=== PATIENT | female | born 1975 | race Hispanic/Latino ===

== ENCOUNTER 2017-04-27 12:29 | Emergency (ER) | payer MEDICAID, OTHER ==
[2017-04-27 12:29] VITALS: BMI 29.7
--- NOTE | 2017-04-27 12:35 | ED PDOC ---
Arrival/HPI - General Time Seen by Provider: 04/27/17 12:30 Historian: Patient, EMS - History of Present Illness Narrative History of Present Illness (Text): 04/27/17 12:34 41 y/o female, psychiatric history including drug abuse including heroine/ cocaine, nkda, c/o rt. thigh pain on and off x 4 weeks with no fall or trauma. Pt. stated that she was seen in the [facility] [place] [facility] twice and told her this is sciatica and discharge her home. Pt. stated that she still has pain, able to walk and stand to get to the house and street for the past 4 weeks, no lower back pain, no pain medication taken at home and here today for second opinions, no fever or chills, no rash, no night sweat, no dizziness, no other medical or psychological complaints. Past Medical History - Provider Review Nursing Documentation Reviewed: Yes - Infectious Disease Hx of Infectious Diseases: None - Cardiac Hx Cardiac Disorders: No Hx Hypertension: No - Pulmonary Hx Tuberculosis: No - Neurological HX Cerebrovascular Accident: No Hx Seizures: No - Hematological/Oncological Hx Cancer: No - Musculoskeletal/Rheumatological Hx Falls: No - Genitourinary/Gynecological Hx Sexually Transmitted Diseases: No - Psychiatric Hx Substance Use: Yes - Surgical History Hx Section: Yes - Anesthesia Hx Anesthesia: Yes Hx Anesthesia Reactions: No Hx Malignant Hyperthermia: No Family/Social History - Physician Review Nursing Documentation Reviewed: Yes Family/Social History: Unknown Family HX Smoking Status: Heavy Smoker > 10 Cigarettes Daily Hx Alcohol Use: No Hx Substance Use: Yes Substance used: heroin Allergies/Home Meds Allergies/Adverse Reactions: Allergies No Known Allergies Allergy (Verified 09/27/15 18:06) Review of Systems - Review of Systems Constitutional: absent: Fatigue, Fevers Eyes: absent: Vision Changes ENT: absent: Hearing Changes Respiratory: absent: SOB, Cough Cardiovascular: absent: Chest Pain Gastrointestinal: absent: Abdominal Pain, Nausea, Vomiting Musculoskeletal: Myalgias. absent: Arthralgias, Back Pain Skin: absent: Rash, Pruritis, Skin Lesions Neurological: absent: Headache, Dizziness Hemo/Lymphatic: absent: Adenopathy, Easy Bleeding Psychiatric: absent: Anxiety, Depression, Suicidal Ideation Physical Exam Vital Signs Reviewed: Yes Vital Signs Temp Pulse Resp BP Pulse Ox 04/27/17 16:08 84 18 122/78 98 04/27/17 14:29 89 17 118/81 99 04/27/17 12:46 98.4 F 95 H 17 116/76 100 Temperature: Afebrile Blood Pressure: Normal Pulse: Regular Respiratory Rate: Normal Appearance: Positive for: Well-Appearing, Non-Toxic, Comfortable Pain Distress: Moderate Mental Status: Positive for: Alert and Oriented X 3 - Systems Exam Head: Present: Atraumatic, Normocephalic Pupils: Present: PERRL Extroacular Muscles: Present: EOMI Conjunctiva: Present: Normal Mouth: Present: Moist Mucous Membranes Neck: Present: Normal Range of Motion Respiratory/Chest: Present: Clear to Auscultation, Good Air Exchange. No: Respiratory Distress, Accessory Muscle Use Cardiovascular: Present: Regular Rate and Rhythm, Normal S1, S2. No: Murmurs Abdomen: Present: Normal Bowel Sounds. No: Tenderness, Distention, Peritoneal Signs Back: Present: Normal Inspection. No: CVA Tenderness, Midline Tenderness, Paraspinal Tenderness, Pain with Leg Raise, Decubitus Ulcer Upper Extremity: Present: Normal Inspection. No: Cyanosis, Edema Lower Extremity: Present: Normal Inspection, Other (RLE: no tenderness or swelling, no deformities, FROM without limitation, sensation intact, motor 5/5, +DPPT pulses, nevative martha and otoole signs. ). No: Edema Neurological: Present: GCS=15, CN II-XII Intact, Speech Normal Skin: Present: Warm, Dry, Normal Color. No: Rashes Psychiatric: Present: Alert, Oriented x 3, Normal Insight, Normal Concentration Medical Decision Making ED Course and Treatment: 04/27/17 13:08 -CK level -RLE venuous doppler -Rt. hip xray -IV toradol -Observe and reassess 04/27/17 15:56 -Urine hcg negative -CK within normal limit -CMP show no acute findings -Rt. hip xray: No significant or acute findings to account for/ related to the clinical presentation. -RLE venuous doppler: as per preliminary report, no acute DVT. -UA show +UTI -Pain decreased, feeling better, discharge home with macrobid, meloxicam, flexeril, crutches, follow up with your own pmd and orthopedic within 2 days, return to the ER for any new or worsening signs or symptoms. - Lab Interpretations Lab Results: 04/27/17 13:30 Lab Results 04/27/17 15:20: Urine Color Yellow, Urine Appearance Sl cloudy, Urine pH 7.5, Ur Specific Ayer 1.010, Urine Protein Negative, Urine Glucose (UA) Negative, Urine Ketones Negative, Urine Blood Trace-lysed H, Urine Nitrate Positive H, Urine Bilirubin Negative, Urine Urobilinogen 0.2, Ur Leukocyte Esterase Negative , Urine RBC 0 - 2, Urine WBC 1 - 3, Ur Epithelial Cells 6 - 8, Amorphous Sediment Few, Urine Bacteria Few 04/27/17 13:30: Sodium 135, Potassium 3.6, Chloride 100, Carbon Dioxide 27, Anion Gap 12, BUN 11, Creatinine 0.5 L, Est GFR ( Amer) > 60, Est GFR ( Non-Af Amer) > 60, Random Glucose 88, Calcium 9.0, Total Bilirubin 0.3, AST 26, ALT 33, Alkaline Phosphatase 108, Total Creatine Kinase < 20 L, Total Protein 7.2, Albumin 2.8 L, Globulin 4.3, Albumin/Globulin Ratio 0.6 L I have reviewed the lab results: Yes Interpretation: Abnormal lab values (+UTI) - RAD Interpretation Radiology Orders: 04/27/17 12:54 DUPLEX LOWER EXTRM VEIN RIGHT [US] Stat 04/27/17 13:03 HIP MIN 2V W/ PELVIS RT [RAD] Stat -RLE venuous doppler: as per preliminary report, no acute DVT. -Rt. hip xray: PROCEDURE: Pelvis, right hip HISTORY: c/o rt. upper thigh pain, no trauma COMPARISON: None TECHNIQUE: Standard protocol for this study/examination. FINDINGS: There are no osseous abnormalities to suggest fracture. The pelvic ring is intact. Preserved femoral-acetabular relationship. IMPRESSION: No significant or acute findings to account for/ related to the clinical presentation. 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 No Sleep Is patient sleeping during reassessment? No Presence of Pain Presence of Pain Yes Pain Scale Used Pain Scale Used Numeric Location Left, Right or Bilateral Right Pain Location Body Site Leg Description Description Constant IM Administration Charges Document 04/27/17 13:46 ND (Rec: 04/27/17 13:47 ND [id number]) Charges for Administration # of IM Administrations 1 - PA / PLASTIC OUTFITTER / Resident Statement MD/ has reviewed & agrees with the documentation as recorded. Disposition/Present on Arrival - Present on Arrival Any Indicators Present on Arrival: Yes History of DVT/PE: No History of Uncontrolled Diabetes: No Urinary Catheter: No History of Decub. Ulcer: No History Surgical Site Infection Following: None - Disposition Have Diagnosis and Disposition been Completed?: Yes Diagnosis: Thigh pain, UTI (urinary tract infection) Disposition: HOME/ ROUTINE Disposition Time: 15:27 Patient Plan: Discharge Condition: GOOD Additional Instructions: discharge home with macrobid, meloxicam, flexeril, crutches, follow up with your own pmd and orthopedic within 2 days, return to the ER for any new or worsening signs or symptoms. Prescriptions: Cyclobenzaprine [Cyclobenzaprine HCl] 10 mg PO TID PRN #21 tab PRN Reason: Other Meloxicam 15 mg PO DAILY PRN #14 tablet PRN Reason: Other Nitrofurantoin Macrocrystals [Macrobid] 100 mg PO BID #14 cap [place]: [facility] [place] [facility] [place] - Follow up with primary Alfonso Escobar MD [Staff Provider] - Follow up with primary Forms: WORK NOTE
[2017-04-27 12:47] VITALS: TEMP 98.4
[2017-04-27 13:58] LABS: ALKALINE PHOSPHATASE 108 U/L (38-126); ALT/SGPT 33 U/L (7-56); AST/SGOT 26 U/L (14-36); BILIRUBIN,TOTAL 0.3 mg/dL (0.2-1.3); BLOOD UREA NITROGEN 11 mg/dL (7-21); CARBON DIOXIDE 27 mmol/L (21-33); CHLORIDE 100 mmol/L (98-107); GFR AFRICAN-AMERICAN > 60; GLUCOSE,RANDOM 88 mg/dL (70-110); POTASSIUM 3.6 mmol/L (3.6-5.0); SODIUM 135 mmol/L (132-148); TOTAL PROTEIN 7.2 g/dL (5.8-8.3)
[2017-04-27 14:10] LABS: ALB/GLOB RATIO 0.6 (1.1-1.8)
[2017-04-27 15:41] LABS: PH,URINE 7.5 (4.7-8.0); URINE BILIRUBIN NEGATIVE (NEGATIVE); URINE BLOOD TRACE-LYSED (NEGATIVE); URINE GLUCOSE (UA) NEGATIVE (NEGATIVE); URINE KETONE NEGATIVE (NEGATIVE); URINE LEUKOCYTE ESTERASE NEGATIVE Leu/uL (NEGATIVE); URINE PROTEIN NEGATIVE mg/dL (<30 mg/dL); URINE UROBILINOGEN 0.2 E.U./dL (<1 E.U./dL)
[2017-04-27 15:45] LABS: URINE APPEARANCE SL CLOUDY (CLEAR); URINE COLOR YELLOW (YELLOW)
--- NOTE | 2017-04-27 15:46 | RAD ---
PROCEDURE: Pelvis, right hip HISTORY: c/o rt. upper thigh pain, no trauma COMPARISON: None TECHNIQUE: Standard protocol for this study/examination. FINDINGS: There are no osseous abnormalities to suggest fracture. The pelvic ring is intact. Preserved femoral-acetabular relationship. IMPRESSION: No significant or acute findings to account for/ related to the clinical presentation.
[2017-04-27 15:59] LABS: URINE AMORPHOUS SEDIMENT FEW; URINE BACTERIA FEW (NEG); URINE RBC 0 - 2 /hpf (0-2)
[2017-04-27 16:09] VITALS: BP 122/78; PULSE 84; RESP 18; O2SAT 98
--- NOTE | 2017-04-27 21:20 | US ---
PROCEDURE: Right lower extremity venous US HISTORY: Leg pain and swelling. Evaluate for DVT. PHYSICIAN(S): Toro Alvarez M.D. TECHNIQUE: Duplex sonography and color-flow Doppler with graded compression were used to evaluate the deep venous system of the right lower extremity. FINDINGS: The visualized deep venous system of the right lower extremity is sonographically normal and compressible. Normal waveforms and augmentation are seen. There is no sonographic evidence for deep venous thrombosis in the visualized segments of the right lower extremity. IMPRESSION: 1. No sonographic evidence for deep venous thrombosis in the visualized segments of the right lower extremity.
== END 2017-04-27 16:24 | disposition home or self-care (01) ==
LOC: ED 12:29
DX: N39.0 Urinary tract infection, site not specified (principal); M79.651 Pain in right thigh
CPT/HCPCS: 73502; 80053; 81001; 82550; 87086; 93971; 96372; 99285; J1885

== ENCOUNTER 2017-05-07 23:09 | Emergency (ER) | payer SELFPAY ==
[2017-05-07 23:17] VITALS: BMI 20.8
[2017-05-07 23:22] VITALS: TEMP 98.8
--- NOTE | 2017-05-07 23:55 | ED PDOC ---
Arrival/HPI - General Chief Complaint: Lower Extremity Problem/Injury Time Seen by Provider: 05/07/17 23:49 Historian: Patient - History of Present Illness Narrative History of Present Illness (Text): 05/07/17 23:51 A 41 year old female, whose past medical history includes a psychiatric history including drug abuse including heroine/cocaine, presents to the emergency department complaining of 6 week duration right leg pain. The patient states that she was seen in the emergency department last week where she was diagnosed with sciatica. The patient states that the muscle relaxers she was prescribed have not relieved her symptoms. The patient also notes that she has been experiencing left shoulder pain. She denies fevers, chills, headache, dizziness , chest pain, shortness of breath, dyspnea on exertion, cough, abdominal pain, nausea, vomiting, diarrhea, neck pain, urinary/bowel changes, or any other complaint. Time/Duration: Other (6 weeks) Symptom Onset: Sudden Symptom Course: Unchanged Activities at Onset: Rest, Light Context: Home Past Medical History - Provider Review Nursing Documentation Reviewed: Yes - Infectious Disease Hx of Infectious Diseases: None - Cardiac Hx Cardiac Disorders: No Hx Hypertension: No - Pulmonary Hx Tuberculosis: No - Neurological HX Cerebrovascular Accident: No Hx Seizures: No - Hematological/Oncological Hx Cancer: No - Musculoskeletal/Rheumatological Hx Back Pain: Yes Hx Falls: No Other/Comment: Sciatica - Genitourinary/Gynecological Hx Sexually Transmitted Diseases: No - Psychiatric Hx Substance Use: Yes - Surgical History Hx Section: Yes (x2) - Anesthesia Hx Anesthesia: Yes Hx Anesthesia Reactions: No Hx Malignant Hyperthermia: No Family/Social History - Physician Review Nursing Documentation Reviewed: Yes Family/Social History: No Known Family HX Smoking Status: Heavy Smoker > 10 Cigarettes Daily Hx Alcohol Use: Yes Frequency of alcohol use: Socially Hx Substance Use: Yes Substance used: heroin; percocet Allergies/Home Meds Allergies/Adverse Reactions: Allergies No Known Allergies Allergy (Verified 09/27/15 18:06) Review of Systems - Physician Review All systems were reviewed & negative as marked: Yes - Review of Systems Constitutional: absent: Fevers Respiratory: absent: SOB, Cough Cardiovascular: absent: Chest Pain, ODONNELL Gastrointestinal: absent: Abdominal Pain, Stool Changes, Diarrhea, Nausea, Vomiting Genitourinary Female: absent: Urine Output Changes Musculoskeletal: Other (Right leg pain and left shoulder pain.). absent: Neck Pain Neurological: absent: Headache, Dizziness Physical Exam Vital Signs Reviewed: Yes Vital Signs Temp Pulse Resp BP Pulse Ox 05/07/17 23:21 98.8 F 119 H 18 98/60 L 95 Temperature: Afebrile Blood Pressure: Hypotensive Pulse: Tachycardic Respiratory Rate: Normal Appearance: Positive for: Well-Appearing, Non-Toxic, Comfortable, Other ( Patient older than stated age.) Pain Distress: None Mental Status: Positive for: Alert and Oriented X 3 - Systems Exam Head: Present: Atraumatic, Normocephalic Pupils: Present: PERRL Extroacular Muscles: Present: EOMI Conjunctiva: Present: Normal Mouth: Present: Moist Mucous Membranes Neck: Present: Normal Range of Motion Respiratory/Chest: Present: Wheezes (Bilateral inspiratory and expiratory wheezes.) Cardiovascular: Present: Regular Rate and Rhythm, Normal S1, S2. No: Murmurs Abdomen: Present: Normal Bowel Sounds. No: Tenderness, Distention, Peritoneal Signs Back: Present: Normal Inspection Upper Extremity: Present: Swelling (Soft tissue swelling to the head of the humerous. ) Lower Extremity: Present: NORMAL PULSES (distal pulses 2+), Tenderness (right parasacral pain on palpation radiating to the thigh anteriorly and posteriorly.) Neurological: Present: GCS=15, CN II-XII Intact, Speech Normal Skin: Present: Warm, Dry, Normal Color. No: Rashes Psychiatric: Present: Alert, Oriented x 3, Normal Insight, Normal Concentration Medical Decision Making ED Course and Treatment: 05/08/17 00:01 Impression: A 41 year old female presents to the emergency department complaining of 6 week duration right leg pain. Differential Diagnosis included but are not limited to: Plan: -- Valium and Toradol -- Reassess and disposition Prior Visits: Notes and results from previous visits were reviewed. Patient was last seen in the emergency department on 04/27/2017. The patient was seen in the emergency department complaining of right thigh pain. The patient was discharged home. Progress Notes: - Medication Orders Current Medication Orders: Discontinued Medications Diazepam (Valium) 5 mg PO ONCE ONE PRN Reason: Protocol Stop: 05/07/17 23:53 Last Admin: 05/08/17 00:12 Dose: 5 mg Ketorolac Tromethamine (Toradol) 60 mg IM STAT STA Stop: 05/07/17 23:51 Last Admin: 05/08/17 00:12 Dose: 60 mg MAR Pain Assessment Document 05/08/17 00:12 HI (Rec[facility] 05/08/17 00:12 [id number] Pain Reassessment Is this a pain reassessment? No Sleep Is patient sleeping during reassessment? No Presence of Pain Presence of Pain Yes Pain Scale Used Pain Scale Used Numeric Location Left, Right or Bilateral Right Pain Location Body Site Hip IM Administration Charges Document 05/08/17 00:12 HI (Rec: 05/08/17 00:12 [place] [id number]) Injection Site MAR Injection Site Left Gluteus Juan Alberto Charges for Administration # of IM Administrations 1 - Scribe Statement The provider has reviewed the documentation as recorded by the Scribe Cynthia Dean Provider Scribe Attestation: All medical record entries made by the Scribe were at my direction and personally dictated by me. I have reviewed the chart and agree that the record accurately reflects my personal performance of the history, physical exam, medical decision making, and the department course for this patient. I have also personally directed, reviewed, and agree with the discharge instructions and disposition. Disposition/Present on Arrival - Present on Arrival Any Indicators Present on Arrival: No History of DVT/PE: No History of Uncontrolled Diabetes: No Urinary Catheter: No History of Decub. Ulcer: No History Surgical Site Infection Following: None - Disposition Have Diagnosis and Disposition been Completed?: Yes Diagnosis: Sciatica Disposition: HOME/ ROUTINE Disposition Time: 00:38 Patient Plan: Discharge Condition: FAIR Discharge Instructions (ExitCare): Sciatica (ED) Print Language: ROMANIAN Prescriptions: Cyclobenzaprine [Cyclobenzaprine HCl] 10 mg PO TID #15 tab Naproxen [Naprosyn] 500 mg PO BID #20 tablet Referrals: [facility] [place] [Outside] - Follow up with primary [facility] [Outside] - Follow up with primary Forms: [facility]ing (Mohawk)
[2017-05-08 01:04] VITALS: BP 112/79; PULSE 90; RESP 16; O2SAT 100
== END 2017-05-08 01:02 | disposition home or self-care (01) ==
LOC: ED 23:09
DX: M54.30 Sciatica, unspecified side (principal)
CPT/HCPCS: 96372; 99284; J1885

== ENCOUNTER 2017-05-29 12:49 | Inpatient (IN) | payer MEDICAID ==
[2017-05-29 12:49] VITALS: BMI 20.8
--- NOTE | 2017-05-29 13:34 | ED PDOC ---
Arrival/HPI - General Chief Complaint: Lower Extremity Problem/Injury Time Seen by Provider: 05/29/17 13:24 Historian: Patient - History of Present Illness Narrative History of Present Illness (Text): 05/29/17 13:34 A 41 year old female presents to the emergency department complaining of pain to right buttock radiating down right leg for 8 weeks. Patient notes lump to right inner thigh, which has increased in size but denies pain. Patient denies any trauma, fever, chills, nausea, vomiting, abdominal pain, chest pain, shortness of breath or any other complaints. Time/Duration: Other (8 weeks) Symptom Course: Unchanged Context: Home Past Medical History - Provider Review Nursing Documentation Reviewed: Yes - Infectious Disease Hx of Infectious Diseases: None - Cardiac Hx Cardiac Disorders: No Hx Hypertension: No - Pulmonary Hx Respiratory Disorders: No - Neurological Hx Neurological Disorder: No - HEENT Hx HEENT Disorder: No - Renal Hx Renal Disorder: No - Endocrine/Metabolic Hx Endocrine Disorders: No - Hematological/Oncological Hx Blood Disorders: No - Integumentary Hx Dermatological Disorder: No - Musculoskeletal/Rheumatological Hx Musculoskeletal Disorders: Yes Hx Back Pain: Yes Other/Comment: Sciatica - Gastrointestinal Hx Gastrointestinal Disorders: No - Genitourinary/Gynecological Hx Genitourinary Disorders: No Hx Sexually Transmitted Diseases: No - Psychiatric Hx Substance Use: Yes - Surgical History Hx Section: Yes (x2) Other/Comment: BREAST AUGMENTATION, NASAL R/T DEVIATED SEPTUM - Anesthesia Hx Anesthesia: Yes Hx Anesthesia Reactions: No Hx Malignant Hyperthermia: No Family/Social History - Physician Review Nursing Documentation Reviewed: Yes Family/Social History: No Known Family HX Smoking Status: Heavy Smoker > 10 Cigarettes Daily Hx Alcohol Use: Yes Hx Substance Use: Yes Substance used: heroin; percocet Allergies/Home Meds Allergies/Adverse Reactions: Allergies No Known Allergies Allergy (Verified 05/29/17 13:13) Home Medications: Home Meds Medication Instructions Recorded Confirmed No Known Home Med 05/29/17 05/29/17 Review of Systems - Physician Review All systems were reviewed & negative as marked: Yes - Review of Systems Constitutional: absent: Fevers, Night Sweats Respiratory: absent: SOB Cardiovascular: absent: Chest Pain Gastrointestinal: absent: Abdominal Pain, Nausea, Vomiting Musculoskeletal: Other (right buttock pain radiating down leg) Skin: Other (lump to right inner thigh) Physical Exam Vital Signs Reviewed: Yes Vital Signs Temp Pulse Resp BP Pulse Ox 05/29/17 18:25 19 99 05/29/17 18:24 98.0 F 90 18 102/69 98 05/29/17 17:48 98.0 F 93 H 18 105/60 100 05/29/17 15:01 94 H 18 106/55 L 98 05/29/17 13:14 98.4 F 114 H 16 98 Temperature: Afebrile Pulse: Tachycardic Respiratory Rate: Normal Appearance: Positive for: Well-Appearing, Non-Toxic, Comfortable Pain Distress: None Mental Status: Positive for: Alert and Oriented X 3 - Systems Exam Head: Present: Atraumatic, Normocephalic Pupils: Present: PERRL Extroacular Muscles: Present: EOMI Conjunctiva: Present: Normal Mouth: Present: Moist Mucous Membranes Neck: Present: Normal Range of Motion Respiratory/Chest: Present: Clear to Auscultation, Good Air Exchange. No: Respiratory Distress, Accessory Muscle Use Cardiovascular: Present: Regular Rate and Rhythm, Normal S1, S2. No: Murmurs Abdomen: Present: Normal Bowel Sounds. No: Tenderness, Distention, Peritoneal Signs, Rebound, Guarding Back: Present: Normal Inspection. No: CVA Tenderness, Midline Tenderness, Paraspinal Tenderness Upper Extremity: Present: Normal Inspection. No: Cyanosis, Edema Lower Extremity: Present: Normal Inspection, NORMAL PULSES, Normal ROM, Tenderness (Right buttock and thigh tenderness), Neurovascularly Intact, Other ( 4x4 inch circular soft mass to right inner thigh). No: Edema, CALF TENDERNESS, Erythema, Temperature Abnormalties Neurological: Present: GCS=15, CN II-XII Intact, Speech Normal Skin: Present: Warm, Dry, Normal Color, Other. No: Rashes Psychiatric: Present: Alert, Oriented x 3, Normal Insight, Normal Concentration Medical Decision Making ED Course and Treatment: 05/29/17 13:34 Impression: A 41 year old female with right buttock pain radiating down leg. Patient notes lump to right inner thigh. Differential Diagnosis included but are not limited to: Mass rule out Abscess vs. Lymph node, Sepsis source mass vs. UTI Plan: -- Chest, abdomen and pelvis CT -- EKG -- Labs -- Blood and urine culture -- Urinalysis -- Morphine, K-dur, IV fluids and Zozyn -- Reassess and disposition Progress Notes: EKG shows NSR at 95 BPM. Interpreted by me. Patient reports history of frequent UTI's. Labs reviewed, elevated white count and platelets. Patient meets 2 SIRS criteria. Pending lactic acid. Will order antibiotics and IV fluids. 05/29/17 15:[address] Hilton, who accepts admission to [facility]. Case was discussed with Dr. Calvillo Surgery who came to evaluate patient. He agreed with plan for CT. 05/29/17 16:36 Code sepsis activated at this time. Report Date : 05/29/2017 18:14:20 PROCEDURE: CT Chest, Abdomen and Pelvis without intravenous contrast Dictator : Jalen Barron MD IMPRESSION: Multiple necrotic masses/ abscess ease identified in the right thigh which is edematous. The is a been described in greater detail above. Multiple pelvic and retroperitoneal masses several of which are necrotic all of which suggests an infectious/ inflammatory etiology. Subhepatic mass with air- fluid levels of multiple ocular also the air likely abscess formation. Communication of results: I discussed the findings directly with the attending physician in the emergency department Dr. Castro at 18:09. CT results were concerning for necrotic masses/abscess. Patient was started on broad spectrum antibiotics. Dr. Hilton and Dr. Calvillo aware of CT results. - Critical Care Critical Care Minutes: 30 minutes - Lab Interpretations Microbiology Results: Microbiology Results 05/29/17 15:30 Blood Blood Culture - Preliminary NO GROWTH AFTER 3 DAYS 05/29/17 15:30 Blood Blood Culture - Preliminary NO GROWTH AFTER 3 DAYS Lab Results: 05/29/17 13:53 05/29/17 13:53 Lab Results 05/29/17 15:30: pO2 57 H, VBG pH 7.41, VBG pCO2 54.0, VBG HCO3 34.2 H, VBG Total CO2 35.9 H, VBG O2 Sat (Calc) 92.4 H, VBG Base Excess 7.8 H, VBG Potassium 2.9 L, Glucose 122 H, Lactate 2.0, FiO2 21.0, Sodium 136.0, Chloride 103.0, Venous Blood Potassium 2.9 L 05/29/17 14:30: Procalcitonin 0.22 05/29/17 14:30: HIV 1&2 Ag/Ab, 4th Gen Nonreactive 05/29/17 13:53: Sodium 137, Potassium 2.8 L* D, Chloride 96 L, Carbon Dioxide 30 , Anion Gap 15, BUN 10, Creatinine 0.7, Est GFR ( Amer) > 60, Est GFR ( Non-Af Amer) > 60, Random Glucose 111 H, Calcium 10.4, Total Bilirubin 0.4, AST 42 H D, ALT 23, Alkaline Phosphatase 143 H D, Total Protein 8.8 H, Albumin 3.3, Globulin 5.5, Albumin/Globulin Ratio 0.6 L 05/29/17 13:53: WBC 20.9 H, RBC 3.87, Hgb 10.4 L, Hct 33.3 L, MCV 86.0, MCH 26.9 , MCHC 31.2, RDW 15.5 H, Plt Count 773 H*, MPV 9.2, Gran % 84.3 H, Lymph % (Auto ) 11.0 L, Desha % (Auto) 4.5, Eos % (Auto) 0.1 L, Baso % (Auto) 0.1, Gran # 17.59 H, Lymph # 2.3, Desha # 1.0 H, Eos # 0.0, Baso # 0.02, Neutrophils % ( Manual) 69, Band Neutrophils % 13 H*, Lymphocytes % (Manual) 12 L, Monocytes % ( Manual) 5, Myelocytes % 1, Platelet Evaluation High 05/29/17 13:30: Phosphorus 4.9 H, Magnesium 1.8 I have reviewed the lab results: Yes - Medication Orders Current Medication Orders: Acetaminophen (Tylenol 325mg Tab) 650 mg PO Q4H PRN PRN Reason: Fever >100.5 F Last Admin: 05/29/17 23:25 Dose: 650 mg [facility] Pain/Vitals Document 05/29/17 23:25 [facility] (Rec: 05/29/17 23:25 [facility] [id number]) Presence of Pain Presence of Pain Yes Pain Scale Used Pain Scale Used Numeric Location Pain 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 Yes Acetaminophen (Tylenol 325mg Tab) 975 mg PO Q8H NORY Last Admin: 06/02/17 13:11 Dose: MAR Pain/Vitals Document 06/02/17 13:11 CV (Rec: 06/02/17 13:11 CV [place] [id number]) Presence of Pain Presence of Pain Yes Heparin Sodium (Porcine) (Heparin) 5,000 units SC Q12 NORY PRN Reason: Protocol Last Admin: 06/02/17 10:25 Dose: Not Given Non-Admin Reason: Patient Refused Hydromorphone HCl (Dilaudid) 0.5 mg IVP Q4H PRN PRN Reason: Pain, severe (8-10) Last Admin: 06/02/17 14:07 Dose: 0.5 mg MAR Pain Assessment Document 06/02/17 14:07 CV (Rec: 06/02/17 14:07 CV [place] [id number]) Pain Reassessment Is this a pain reassessment? No Presence of Pain Presence of Pain Yes IVP Administration Document 06/02/17 14:07 CV (Rec: 06/02/17 14:07 CV [place] [id number]) Charges for Administration # of IVP Administrations 1 Vancomycin HCl (Vancomycin 1gm) 1 gm in 250 mls @ 167 mls/hr IVPB Q12H NORY PRN Reason: Protocol Stop: 06/07/17 22:01 Last Admin: 06/02/17 10:14 Dose: 167 mls/hr eMAR Start Stop Document 06/02/17 10:14 CV (Rec: 06/02/17 10:14 CV [place] [id number]) Intravenous Solution Start Date 06/02/17 Start Time 10:14 Piperacillin Sod/Tazobactam Sod (Zosyn 3.375 In Ns 100ml) 100 mls @ 200 mls/hr IVPB Q6 NORY PRN Reason: Protocol Stop: 06/08/17 00:01 Last Admin: 06/02/17 13:11 Dose: 200 mls/hr eMAR Start Stop Document 06/02/17 13:11 CV (Rec: 06/02/17 13:11 CV [place] [id number]) Intravenous Solution Start Date 06/02/17 Start Time 13:11 Lactated Ringer's (Lactated Ringer's) 1,000 mls @ 100 mls/hr IV .Q10H NORY Last Admin: 06/02/17 06:53 Dose: Mupirocin (Bactroban Ointment) 1 gm NS BID [facility] Stop: 06/06/17 10:01 Last Admin: 06/01/17 23:47 Dose: 1 applic Ondansetron HCl (Zofran Inj) 4 mg IVP Q4H PRN PRN Reason: Nausea/Vomiting Oxycodone/Acetaminophen (Percocet 5/325 Mg Tab) 1 tab PO Q6H PRN PRN Reason: Pain, moderate (4-7) Stop: 06/03/17 12:01 Last Admin: 06/02/17 13:10 Dose: 1 tab [facility] Pain Assessment Document 06/02/17 13:10 CV (Rec: 06/02/17 13:10 CV [place] [id number]) Pain Reassessment Is this a pain reassessment? No Sleep Is patient sleeping during reassessment? No Presence of Pain Presence of Pain Yes Pain Scale Used Pain Scale Used Numeric Pantoprazole Sodium (Protonix Inj) 40 mg IVP DAILY [facility] Last Admin: 06/02/17 10:13 Dose: 40 mg IVP Administration Document 06/02/17 10:13 CV (Rec: 06/02/17 10:14 CV [place] [id number]) Charges for Administration # of IVP Administrations 1 Polyethylene Glycol (Miralax) 17 gm PO BID [facility] Last Admin: 06/02/17 10:16 Dose: 17 gm Discontinued Medications Hydromorphone HCl (Dilaudid) 0.5 mg IVP STAT [facility] Stop: 05/30/17 10:13 Last Admin: 05/30/17 10:36 Dose: 0.5 mg [facility] Pain Assessment Document 05/30/17 10:36 LMN (Rec: 05/30/17 10:38 LMN [id number][place] Pain Reassessment Is this a pain reassessment? No Presence of Pain Presence of Pain Yes Pain Scale Used Pain Scale Used Numeric Location Left, Right or Bilateral Right Upper or Lower Lower Pain Location Body Site Lumbar Description Description Constant Pain Behavior Moaning Crying Irritability Restlessness IVP Administration Document 05/30/17 10:36 LMN (Rec: 05/30/17 10:38 LMN [id number][place] Charges for Administration # of IVP Administrations 1 Re-Assess: MAR Pain Assessment Document 05/30/17 11:36 LMN (Rec: 05/30/17 14:27 LMN [id number][place] Pain Reassessment Is this a pain reassessment? Yes Sleep Is patient sleeping during reassessment? No Presence of Pain Presence of Pain Yes Pain Scale Used Pain Scale Used Numeric Description Pain not relieved and LIP/MD was Yes notified Hydromorphone HCl (Dilaudid) 0.5 mg IVP Q6H PRN PRN Reason: Pain, severe (8-10) Last Admin: 05/31/17 08:52 Dose: 0.5 mg [facility] Pain Assessment Document 05/31/17 08:52 [employer] (Rec: 05/31/17 08:53 RERECORDING MIXER [id number]) Pain Reassessment Is this a pain reassessment? Yes Sleep Is patient sleeping during reassessment? No Presence of Pain Presence of Pain Yes Pain Scale Used Pain Scale Used Numeric Location Pain Location Body Site Sacrum Description Description Constant IVP Administration Document 05/31/17 08:52 [employer] (Rec: 05/31/17 08:53 RERECORDING MIXER [id number]) Charges for Administration # of IVP Administrations 1 Re-Assess: [facility] Pain Assessment Document 05/31/17 09:52 [employer] (Rec: 05/31/17 10:11 RERECORDING MIXER [id number]) Pain Reassessment Is this a pain reassessment? Yes Sleep Is patient sleeping during reassessment? No Presence of Pain Presence of Pain Yes Hydromorphone HCl (Dilaudid) 0.5 mg IVP Q15M PRN PRN Reason: Pain, severe (8-10) Stop: 05/31/17 23:59 Sodium Chloride (Sodium Chloride 0.9%) 1,000 mls @ 100 mls/hr IV .Q10H NORY Last Admin: 05/29/17 15:44 Dose: 100 mls/hr eMAR Start Stop Document 05/29/17 15:44 [email or web address] (Rec: 05/29/17 15:44 [email or web address] [facility] [id number]) Intravenous Solution Start Date 05/29/17 Start Time 15:44 End Date 05/29/17 Piperacillin Sod/Tazobactam Sod (Zosyn 4.5 Gm In Ns 100ml) 4.5 gm in 100 mls @ 200 mls/hr IVPB STAT STA PRN Reason: Protocol Stop: 05/29/17 15:39 Last Admin: 05/29/17 15:43 Dose: 200 mls/hr eMAR Start Stop Document 05/29/17 15:43 [email or web address] (Rec: 05/29/17 15:44 [email or web address] [facility] [id number]) Intravenous Solution Start Date 05/29/17 Start Time 15:44 End Date 05/29/17 Sodium Chloride (Sodium Chloride 0.9%) 1,000 mls @ 999 mls/hr IV .Q1H1M STA Stop: 05/29/17 16:13 Last Admin: 05/29/17 15:44 Dose: 999 mls/hr eMAR Start Stop Document 05/29/17 15:44 [email or web address] (Rec: 05/29/17 15:44 [email or web address] [facility] [id number]) Intravenous Solution Start Date 05/29/17 Start Time 15:44 End Date 05/29/17 Sodium Chloride (Sodium Chloride 0.9%) 1,000 mls @ 100 mls/hr IV .Q10H NORY Potassium Chloride 40 meq/ (Sodium Chloride) 1,020 mls @ 100 mls/hr IV .[id number] NORY Last Admin: 05/30/17 08:56 Dose: 100 mls/hr eMAR Start Stop Document 05/30/17 08:56 LMN (Rec: 05/30/17 08:56 LMN [id number]) Intravenous Solution Start Date 05/30/17 Start Time 08:56 Vancomycin HCl (Vancomycin 1gm) 1 gm in 250 mls @ 167 mls/hr IVPB STAT STA PRN Reason: Protocol Stop: 05/29/17 19:42 Last Admin: 05/29/17 19:58 Dose: 167 mls/hr eMAR Start Stop Document 05/29/17 19:58 JA (Rec: 05/29/17 19:58 JA [id number]) Intravenous Solution Start Date 05/29/17 Start Time 19:58 Sodium Chloride (Sodium Chloride 0.9%) 1,000 mls @ 175 mls/hr IV .Q5H43M NORY Last Admin: 05/30/17 15:50 Dose: 175 mls/hr eMAR Start Stop Document 05/30/17 15:50 LMN (Rec: 05/30/17 15:50 LMN [id number]) Intravenous Solution Start Date 05/30/17 Start Time 15:50 Iron Sucrose 200 mg/ Sodium (Chloride) 110 mls @ 110 mls/hr IVPB ONCE NORY Stop: 06/03/17 09:31 Last Admin: 06/01/17 09:10 Dose: 110 mls/hr eMAR Start Stop Document 06/01/17 09:10 KAILYN (Rec: 06/01/17 09:11 KAILYN [id number]) Intravenous Solution Start Date 06/01/17 Start Time 09:10 End Date 06/01/17 End time 10:10 Total Infusion Time 60 Lactated Ringer's (Lactated Ringer's) 1,000 mls @ 75 mls/hr IV .[id number] NORY Stop: 05/31/17 19:01 Lactated Ringer's (Lactated Ringer's) 500 mls @ 999 mls/hr IV .Q31M NORY Stop: 06/01/17 12:15 Last Admin: 06/01/17 12:18 Dose: 999 mls/hr eMAR Start Stop Document 06/01/17 12:18 KAILYN (Rec: 06/01/17 12:18 KAILYN [id number]) Intravenous Solution Start Date 06/01/17 Start Time 12:18 End Date 06/01/17 End time 12:48 Total Infusion Time 30 Ketorolac Tromethamine (Toradol) 30 mg IVP STAT STA Stop: 05/30/17 03:24 Last Admin: 05/30/17 03:36 Dose: 30 mg MAR Pain Assessment Document 05/30/17 03:36 [facility] (Rec: 05/30/17 03:37 [facility]17) Pain Reassessment Is this a pain reassessment? No Presence of Pain Presence of Pain Yes Location Left, Right or Bilateral Right Pain Location Body Site Leg Description Description Intermittent Intensity of Pain at present 10 Pain Behavior Moaning Crying Guarding Irritability Restlessness Screaming Aggravating Factors ADL's Alleviating Factors/Management Medication Techniques Alleviating Factors Medication IVP Administration Document 05/30/17 03:36 [facility] (Rec: 05/30/17 03:37 [place] [id number]) Charges for Administration # of IVP Administrations 1 Ketorolac Tromethamine (Toradol) 30 mg IVP STAT STA Stop: 05/30/17 22:10 Last Admin: 05/30/17 22:30 Dose: 30 mg MAR Pain Assessment Document 05/30/17 22:30 KT (Rec: 05/30/17 22:30 KT [place] [id number]) Pain Reassessment Is this a pain reassessment? No Presence of Pain Presence of Pain Yes Pain Scale Used Pain Scale Used Numeric Location Left, Right or Bilateral Bilateral Upper or Lower Lower Pain Location Body Site Back IVP Administration Document 05/30/17 22:30 KT (Rec: 05/30/17 22:30 KT [place] [id number]) Charges for Administration # of IVP Administrations 1 Ketorolac Tromethamine (Toradol) 30 mg IVP Q8H NORY Stop: 06/02/17 04:31 Last Admin: 06/01/17 03:34 Dose: 30 mg MAR Pain Assessment Document 06/01/17 03:34 KP (Rec: 06/01/17 03:34 [id number] Pain Reassessment Is this a pain reassessment? No Sleep Is patient sleeping during reassessment? No Presence of Pain Presence of Pain Yes Location Pain Location Body Site Generalized Description Description Intermittent Pain Behavior Moaning IVP Administration Document 06/01/17 03:34 KP (Rec: 06/01/17 03:34 [facility]-[id number]) Charges for Administration # of IVP Administrations 1 Re-Assess: MAR Pain Assessment Document 06/01/17 04:34 KP (Rec: 06/01/17 05:08 [facility]-[id number]) Pain Reassessment Is this a pain reassessment? Yes Sleep Is patient sleeping during reassessment? No Presence of Pain Presence of Pain No Morphine Sulfate (Morphine) 4 mg IVP STAT STA Stop: 05/29/17 13:45 Last Admin: 05/29/17 14:08 Dose: 4 mg IVP Administration Document 05/29/17 14:08 [email or web address] (Rec: 05/29/17 14:09 [email or web address] [id number]) Charges for Administration # of IVP Administrations 1 Morphine Sulfate (Morphine) 2 mg IVP Q4H PRN PRN Reason: Pain, severe (8-10) Last Admin: 05/29/17 19:12 Dose: 2 mg MAR Pain Assessment Document 05/29/17 19:12 JA (Rec: 05/29/17 19:12 RASHID [id number]) Pain Reassessment Is this a pain reassessment? No Presence of Pain Presence of Pain Yes Pain Scale Used Pain Scale Used Numeric Location Pain Location Body Site Generalized Description Description Constant Intensity of Pain at present 9 Acceptable Level of Pain 0-2 IVP Administration Document 05/29/17 19:12 RASHID (Rec: 05/29/17 19:12 RASHID [id number]) Charges for Administration # of IVP Administrations 1 Morphine Sulfate (Morphine) 4 mg IVP Q6H PRN PRN Reason: Pain, severe (8-10) Last Admin: 05/29/17 20:53 Dose: 4 mg Morphine Sulfate (Morphine) 2 mg IVP Q6H PRN PRN Reason: Pain, severe (8-10) Morphine Sulfate (Morphine) 2 mg IV Q6H PRN PRN Reason: Pain, severe (8-10) Last Admin: 05/30/17 08:56 Dose: 2 mg eMAR Start Stop Document 05/30/17 08:56 LMN (Rec: 05/30/17 08:56 LMN [id number]) Intravenous Solution Start Date 05/30/17 Start Time 08:56 Ondansetron HCl (Zofran Inj) 4 mg IVP ONCE PRN PRN Reason: Nausea/Vomiting Potassium Chloride (K-Dur 20 Meq Er Tab) 40 meq PO STAT STA Stop: 05/29/17 15:10 Last Admin: 05/29/17 15:44 Dose: 40 meq Potassium Chloride (K-Dur 20 Meq Er Tab) 40 meq PO ONCE ONE Stop: 05/29/17 22:01 Last Admin: 05/29/17 23:11 Dose: 40 meq Potassium Chloride (K-Dur 20 Meq Er Tab) 40 meq PO ONCE ONE Stop: 06/02/17 08:55 Last Admin: 06/02/17 09:00 Dose: 40 meq - Scribe Statement The provider has reviewed the documentation as recorded by the Debraibjamari Langley Provider Scribe Attestation: All medical record entries made by the Scribe were at my direction and personally dictated by me. I have reviewed the chart and agree that the record accurately reflects my personal performance of the history, physical exam, medical decision making, and the department course for this patient. I have also personally directed, reviewed, and agree with the discharge instructions and disposition. Disposition/Present on Arrival - Present on Arrival Any Indicators Present on Arrival: No History of DVT/PE: No History of Uncontrolled Diabetes: No Urinary Catheter: No History of Decub. Ulcer: No History Surgical Site Infection Following: None - Disposition Have Diagnosis and Disposition been Completed?: Yes Diagnosis: Abdominal abscess Disposition: HOSPITALIZED Disposition Time: 15:53 Patient Plan: Admission Condition: GUARDED
[2017-05-29] MEDS ORDERED: Morphine 5 MG/ML SYRINGE IVP STA (13:44)
[2017-05-29 14:25] LABS: BASO # 0.02 K/mm3 (0.0-2.0); BASO % 0.1 % (0.0-3.0); EOS % 0.1 % (1.5-5.0); GRAN # 17.59 (1.4-6.5); GRAN % 84.3 % (50.0-68.0); HEMOGLOBIN 10.4 g/dL (12.0-16.0); LYMPH # 2.3 (1.2-3.4); MEAN CORPUSCULAR HEMOGLOBIN 26.9 pg (25.0-35.0); MEAN CORPUSCULAR HGB CONC 31.2 g/dl (31.0-37.0); MEAN PLATELET VOLUME 9.2 fl (7.0-11.0); MONO % 4.5 % (1.0-6.0); RBC 3.87 10^6/uL (3.5-6.1); RED CELL DISTRIBUTION WIDTH 15.5 % (11.5-14.5); WHITE BLOOD COUNT 20.9 10^3/ul (4.5-11.0)
[2017-05-29 14:32] LABS: PLATELET COUNT 773 10^3/uL (120.0-450.0)
[2017-05-29] MEDS ORDERED: Sodium Chloride 0.9% 1,000 ML IV SCH ×2 (14:45→16:30)
[2017-05-29 15:07] LABS: ALB/GLOB RATIO 0.6 (1.1-1.8); ALBUMIN 3.3 g/dL (3.0-4.8); ALT/SGPT 23 U/L (7-56); AST/SGOT 42 U/L (14-36); BLOOD UREA NITROGEN 10 mg/dL (7-21); CALCIUM 10.4 mg/dL (8.4-10.5); GFR AFRICAN-AMERICAN > 60; GFR NON-AFRICAN AMERICAN > 60
[2017-05-29] MEDS ORDERED: Potassium Chloride 20 mEq ER Tab PO STA (15:09)
[2017-05-29] MEDS ORDERED: Piperacill/Tazo 4.5gm in NS 4.5 GM/100 ML BAG IVPB STA (15:10)
[2017-05-29] MEDS ORDERED: Sodium Chloride 0.9% 1,000 ML IV STA (15:13)
[2017-05-29 15:59] LABS: VENOUS BLOOD GAS BASE EXCESS 7.8 mmol/L (0.0-2.0); VENOUS BLOOD GAS PO2 57 mm/Hg (30-55); VENOUS BLOOD PH 7.41 (7.32-7.43)
[2017-05-29] MEDS ORDERED: Iohexol 350 MG/100 ML VIAL ONE ×2 (16:14→16:58)
[2017-05-29 16:44] LABS: MAGNESIUM 1.8 mg/dL (1.7-2.2)
--- NOTE | 2017-05-29 17:04 | CP.PCM.CON ---
History of Present Illness - History of Present Illness History of Present Illness: GENERAL SURGERY CONSULT NOTE FOR DR. CUELLAR Patient is a 41 YO F with no significant PMH who presents to [facility] with severe pain in the right buttock radiating to the right leg for 8 weeks. Patient reports that her symptoms began the 2nd week of April. Patient has been unable to walk, generalized weakness, and decreased PO intake. Patient reports 40 lb wt loss since the beginning of her symptoms. Patient was diagnosed with UTI around the time her symptoms began and had a course of antibiotics. Patient noticed some swelling of the right groin in April however within the past 2 days swelling has increased in size dramatically. Surgery consulted for right groin mass. Patient denies fever, nausea/vomiting, diarrhea/constipation, abdominal pain, headache, dizziness, trauma. Patient reports abstinence from heroin for 3 years but via medical record patient was admitted to [facility] for cocaine and heroin use. ROS: see HPI PMH: denies PShx: breast augmentation, deviated septum repair Social hx: smokes less than ppd for 20 years, denies alcohol use, intranasal heroin use for 13 years , Percocet abuse Review of Systems - Constitutional Constitutional: As Per HPI Past Patient History - Infectious Disease Hx of Infectious Diseases: None - Past Medical History & Family History Past Medical History?: No - Past Social History Smoking Status: Heavy Smoker > 10 Cigarettes Daily Drugs: Opiates Home Situation {Lives}: With Family - CARDIAC Hx Cardiac Disorders: No Hx Hypertension: No - PULMONARY Hx Respiratory Disorders: No - NEUROLOGICAL Hx Neurological Disorder: No - HEENT Hx HEENT Problems: No - RENAL Hx Chronic Kidney Disease: No - ENDOCRINE/METABOLIC Hx Endocrine Disorders: No - HEMATOLOGICAL/ONCOLOGICAL Hx Blood Disorders: No - INTEGUMENTARY Hx Dermatological Problems: No - MUSCULOSKELETAL/RHEUMATOLOGICAL Hx Musculoskeletal Disorders: Yes Hx Back Pain: Yes Other/Comment: Sciatica - GASTROINTESTINAL Hx Gastrointestinal Disorders: No - GENITOURINARY/GYNECOLOGICAL Hx Genitourinary Disorders: No Hx Sexually Transmitted Disorders: No - PSYCHIATRIC Hx Substance Use: Yes - SURGICAL HISTORY Hx Section: Yes (x2) Other/Comment: BREAST AUGMENTATION, NASAL R/T DEVIATED SEPTUM - ANESTHESIA Hx Anesthesia: Yes Hx Anesthesia Reactions: No Hx Malignant Hyperthermia: No Meds Allergies/Adverse Reactions: Allergies Allergy/AdvReac Type Severity Reaction Status Date / Time No Known Allergies Allergy Verified 05/29/17 13:13 - Medications Medications: Current Medications Sodium Chloride (Sodium Chloride 0.9%) 1,000 mls @ 100 mls/hr IV .Q10H [facility] Last Admin: 05/29/17 15:44 Dose: 100 mls/hr Sodium Chloride (Sodium Chloride 0.9%) 1,000 mls @ 100 mls/hr IV .Q10H [facility] Physical Exam - Constitutional Appears: Non-toxic, No Acute Distress - Head Exam Head Exam: ATRAUMATIC, NORMOCEPHALIC - Eye Exam Eye Exam: Normal appearance - Respiratory Exam Respiratory Exam: Clear to Auscultation Bilateral, NORMAL BREATHING PATTERN - Cardiovascular Exam Cardiovascular Exam: RRR, +S1, +S2. absent: Tachycardia - GI/Abdominal Exam GI & Abdominal Exam: Soft. absent: Distended, Firm, Guarding, Organomegaly, Rebound, Rigid, Tenderness - Extremities Exam Extremities exam: Negative for: tenderness Additional comments: large right groin mass, nontender, non erythematous, no induration or fluctuance - Neurological Exam Neurological exam: Alert, Oriented x3 - Psychiatric Exam Psychiatric exam: Normal Affect, Normal Mood - Skin Skin Exam: Dry, Normal Color, Warm Results - Vital Signs Recent Vital Signs: Last Vital Signs Temp 98.4 F 05/29/17 13:14 Pulse 94 H 05/29/17 15:01 Resp 18 05/29/17 15:01 BP 106/55 L 05/29/17 15:01 Pulse Ox 98 05/29/17 15:01 - Labs Result Diagrams: 05/29/17 13:53 05/29/17 13:53 Assessment & Plan - Assessment and Plan (Free Text) Assessment: Pt is 41 YO F with no significant PMHx with large right groin mass. Surgery consulted to evaluate right groin mass. Rule out malignancy, HIV, abscess Plan: - WBC 20.9 - Platelets 773 - Hypokalemia 2.8 - being replaced by medicine team - CT ordered, R/o lymphoma vs abscess - FU HIV labs - Will consider biopsy of groin mass Discussed plan with Dr. Rajinder Carlisle PGY-3
[2017-05-29] MEDS ORDERED: Vancomycin 1gm in NS 250ml 1 GM/250 ML BAG IVPB STA (18:13)
--- NOTE | 2017-05-29 18:16 | CT ---
PROCEDURE: CT Chest, Abdomen and Pelvis without intravenous contrast HISTORY: right ing mass r/o LN, abscess; image until below COMPARISON: None. TECHNIQUE: Radiation dose: Total exam DLP = 440.62 mGy-cm. This CT exam was performed using one or more of the following dose reduction techniques: Automated exposure control, adjustment of the mA and/or kV according to patient size, and/or use of iterative reconstruction technique. FINDINGS: Markedly enlarged as visualized right thigh a. A confluence of necrotic mass is either originate from or displace the rectus femoris, vastus medialis, sartorius and vastus lateralis muscles. These necrotic masses range in size from 3.6 by 4 cm to 3.7 x 5.2 cm. Additional soft tissue masses noted extending into the pelvis including the iliacus and iliopsoas muscles. Additional masses in the pelvis in the ischiorectal fossa bilaterally. Intra-abdominal, subhepatic mass with locked deltoid air measuring 8.[address] CHEST WITHOUT CONTRAST: LUNGS: Clear. No nodule, mass or consolidation. Cystic/bullous changes identified bilaterally primarily apical distribution. MEDIASTINUM: Unremarkable. Normal caliber aorta and pulmonary arterial trunk. Normal size heart. LYMPH NODES: Unremarkable. PLEURA: Unremarkable. No pneumothorax. No pleural fluid. BONES: No significant osseous abnormalities. OTHER FINDINGS: None. CT ABDOMEN AND PELVIS: LIVER: Unremarkable. No gross lesion or ductal dilatation. GALLBLADDER AND BILE DUCTS: Unremarkable. PANCREAS: Unremarkable. No gross lesion or ductal dilatation. SPLEEN: Unremarkable. ADRENALS: Unremarkable. No mass. KIDNEYS AND URETERS: Unremarkable. No hydronephrosis. No solid mass. VASCULATURE: Unremarkable. No aortic aneurysm. BOWEL: Unremarkable. No obstruction. No gross mural thickening. APPENDIX: Normal appendix. PERITONEUM: Unremarkable. No free fluid. No free air. LYMPH NODES: Unremarkable. No enlarged lymph nodes. BLADDER: Unremarkable. REPRODUCTIVE: Unremarkable. BONES: No acute fracture. OTHER FINDINGS: None. IMPRESSION: Multiple necrotic masses/ abscess ease identified in the right thigh which is edematous. The is a been described in greater detail above. Multiple pelvic and retroperitoneal masses several of which are necrotic all of which suggests an infectious/ inflammatory etiology. . Subhepatic mass with air-fluid levels of multiple ocular also the air likely abscess formation. Communication of results: I discussed the findings directly with the attending physician in the emergency department Dr. Castro at 18:09.
--- NOTE | 2017-05-29 18:20 | CARD ---
APPROVED REPORT EKG Measurement Heart [id number] NH 132P [id number] <Conclusion> Reversed arm leads Normal sinus rhythm Prolonged QT Abnormal ECG
[2017-05-29] MEDS ORDERED: Morphine 2 mg/ml ISec IVP PRN (18:26)
[2017-05-29 19:14] LABS: BAND 13 % (0-2); LYMPHOCYTE 12 % (22.0-35.0); MONOCYTE 5 % (1.0-6.0); MYELOCYTE 1 %; NEUTROPHIL 69 % (50.0-70.0)
[2017-05-29 19:15] LABS: PLATELET ESTIMATE HIGH (NORMAL)
[2017-05-29 19:26] LABS: VENOUS BLOOD GAS BASE EXCESS 7.5 mmol/L (0.0-2.0); VENOUS BLOOD GAS PO2 30 mm/Hg (30-55); VENOUS BLOOD PH 7.43 (7.32-7.43)
--- NOTE | 2017-05-29 19:43 | CP.PCM.HP ---
<Seng Soto - Last Filed: 05/29/17 19:23> History of Present Illness - History of Present Illness History of Present Illness: Ms. Sawyer is a 41 year old female with a past medical history significant for Hepatitis C and polysubstance abuse who presents with a constant sharp pain in the right buttock radiating to the right leg that started suddenly 8 weeks ago with no inciting event with associated right inguinal mass. Patient reports that her symptoms were present when she awoke from sleep approximately the second week of April. The pain has been getting progressively worse since that time despite both OTC anti-inflammatory medications and narcotic pain medications that she received from a friend. She endorses that since the pain has started, she has needed the assistance of crutches to ambulate and that she often does not ambulate whatsoever throughout the day, remaining bed bound. She reports that she has unintentionally lost approximately 40lbs since this pain started, which she attributes to poor appetite due to pain. She also endorses a painless mass on the inside of her right thigh that she noticed at the onset of her pain symptoms. She notes that this has progressively gotten larger throughout the past 8 weeks but that this has increased in size dramatically within the past 2 days. Patient reports that she has been to both [facility] and [facility] for this pain/mass and has been told that she has sciatica and a "swollen lymph node" and discharged home with pain medications. One two of these hospital visits, patient was diagnosed with UTI and had two courses of antibiotics. She denies any fever, chills, headache, changes in her vision, epistaxis, rhinorrhea , gingival bleeding, sore throat, neck pain/stiffness, chest pain, palpitations , syncope, LE edema, SOB, cough, wheezing, pleurisy, hemoptysis, abdominal pain , N/V/D/C, hematemesis, hematochezia, melena, burning/pain with urination, hematuria, urinary output changes, urinary/bowel incontinence, vaginal discharge /bleeding, changes/abnormal menstrual cycle, skin changes, numbness/tingling/ weakness of any extremity, recent travel, new sexual partners or any sick contacts. PMH: Hepatitis C and polysubstance abuse PSH: Breast augmentation and deviated septum repair Family History: Denies Social History: Endorses current half pack per day tobacco use with 10 year pack smoking history, social alcohol use, and former cocaine and heroin abuse ( [facility] 05/28/16); Lives in [place] Allergies: NKDA Home Medications: As per MAR LMP: April 17 Present on Admission - Present on Admission Any Indicators Present on Admission: No Review of Systems - Review of Systems Review of Systems: As stated in HPI, otherwise negative Past Patient History - Infectious Disease Hx of Infectious Diseases: None - Past Medical History & Family History Past Medical History?: No - Past Social History Smoking Status: Heavy Smoker > 10 Cigarettes Daily - CARDIAC Hx Cardiac Disorders: No Hx Hypertension: No - PULMONARY Hx Respiratory Disorders: No - NEUROLOGICAL Hx Neurological Disorder: No - HEENT Hx HEENT Problems: No - RENAL Hx Chronic Kidney Disease: No - ENDOCRINE/METABOLIC Hx Endocrine Disorders: No - HEMATOLOGICAL/ONCOLOGICAL Hx Blood Disorders: No - INTEGUMENTARY Hx Dermatological Problems: No - MUSCULOSKELETAL/RHEUMATOLOGICAL Hx Musculoskeletal Disorders: Yes Hx Back Pain: Yes Other/Comment: Sciatica - GASTROINTESTINAL Hx Gastrointestinal Disorders: No - GENITOURINARY/GYNECOLOGICAL Hx Genitourinary Disorders: No Hx Sexually Transmitted Disorders: No - PSYCHIATRIC Hx Substance Use: Yes - SURGICAL HISTORY Hx Section: Yes (x2) Other/Comment: BREAST AUGMENTATION, NASAL R/T DEVIATED SEPTUM - ANESTHESIA Hx Anesthesia: Yes Hx Anesthesia Reactions: No Hx Malignant Hyperthermia: No Meds Allergies/Adverse Reactions: Allergies Allergy/AdvReac Type Severity Reaction Status Date / Time No Known Allergies Allergy Verified 05/29/17 13:13 Physical Exam - Constitutional Appears: Non-toxic, No Acute Distress - Head Exam Head Exam: ATRAUMATIC, NORMAL INSPECTION, NORMOCEPHALIC - Eye Exam Eye Exam: EOMI, Normal appearance, PERRL. absent: Conjunctival injection, Nystagmus, Periorbital swelling, Periorbital tenderness, Scleral icterus Pupil Exam: NORMAL ACCOMODATION, PERRL - ENT Exam ENT Exam: Mucous Membranes Moist, Normal Exam, Normal External Ear Exam, Normal Oropharynx - Neck Exam Neck exam: Positive for: Full Rom, Normal Inspection. Negative for: Lymphadenopathy, Meningismus, Tenderness, Thyromegaly - Respiratory Exam Respiratory Exam: Clear to Auscultation Bilateral, NORMAL BREATHING PATTERN. absent: Accessory Muscle Use, Chest Wall Tenderness, Decreased Breath Sounds, Prolonged Expiratory Phase, Rales, Rhonchi, Wheezes, Respiratory Distress, Stridor - Cardiovascular Exam Cardiovascular Exam: REGULAR RHYTHM, RRR, +S1, +S2. absent: Bradycardia, Tachycardia, Clicks, Diastolic murmur, Gallop, Irregular Rhythm, JVD, Rubs, +S4 , Systolic Murmur - GI/Abdominal Exam GI & Abdominal Exam: Normal Bowel Sounds, Soft. absent: Bruit, Diminished Bowel Sounds, Distended, Firm, Guarding, Hernia, Hyperactive Bowel Sounds, Hypoactive Bowel Sounds, Mass, Organomegaly, Pulsatile Mass, Rebound, Rigid, Tenderness - Extremities Exam Extremities exam: Positive for: full ROM, normal capillary refill, normal inspection, pedal pulses present. Negative for: calf tenderness, joint swelling , pedal edema, tenderness Additional comments: Approximately 10cm nontender right groin mass with no overlying erythema, induration or fluctuance - Back Exam Back exam: FULL ROM, NORMAL INSPECTION. absent: CVA tenderness (L), CVA tenderness (R), muscle spasm, paraspinal tenderness, rash noted, tenderness, vertebral tenderness - Neurological Exam Neurological exam: Alert, CN II-XII Intact, Oriented x3, Reflexes Normal - Psychiatric Exam Psychiatric exam: Normal Affect, Normal Mood - Skin Skin Exam: Dry, Intact, Normal Color, Warm Results - Vital Signs Recent Vital Signs: Last Vital Signs Temp 98.0 F 05/29/17 18:24 Pulse 90 05/29/17 18:24 Resp 19 05/29/17 18:25 BP 102/69 05/29/17 18:24 Pulse Ox 99 05/29/17 18:25 - Labs Result Diagrams: 05/29/17 13:53 05/29/17 13:53 - EKG Data EKG Interpreted by: ER Physician EKG shows normal: Sinus rhythm Rate: Tachycardia (95) Assessment & Plan - Assessment and Plan (Free Text) Assessment: 41 year old female with a past medical history significant for Hepatitis C and polysubstance abuse who presents with a constant sharp pain in the right buttock radiating to the right leg that started suddenly 8 weeks ago with no inciting event with associated right inguinal mass. Plan: 1. RLE Mass with associated Right Sided Sciatica -CT Chest/Abdomen/Pelvis showed markedly enlarged confluence of necrotic mass that either originates from or displaces the rectus femoris, vastus medialis, sartorius and vastus lateralis muscles that range in size from 3.6 by 4 cm to 3.7 x 5.2 cm with additional soft tissue masses noted extending into the pelvis including the iliacus/iliopsoas muscles as well as in the ischiorectal fossa bilaterally. Also noted was an intra-abdominal, subhepatic mass with locked deltoid air measuring 8.7 x 15 cm suspicious for abscess. -Patient noted to have leukocytosis to 20.9 and tachycardia with no fever or tachypnea; Lactic acid noted to be WNL -Continue IV Vancomycin and IV Zosyn for empiric coverage -Tylenol PRN for fever -Morphine 2mg IVP Q4 PRN for pain control -Normal Saline at 100mls/hr -Zofran PRN for N/V -Procal, blood and urine cultures pending -Surgery and ID consulted, all recommendations appreciated 2. Anemia -H/H at 10.4/33.3 -Iron studies, B12, folate, reticulocyte count, TSH and peripheral smear pending -Monitor with daily CBC's 3. Thrombocytosis -Likely reactive -Peripheral smear pending -DVT Prophylaxis 4. Hypokalemia -Potassium at 2.8 -Repleted with both PO and IV KCl -Mag/Phos pending -Monitor with daily CMP 5. History of Hepatitis C -Hepatitis panel pending -ID consulted, all recommendations appreciated GI Prophylaxis: Protonix DVT Prophylaxis: Heparin and SCD's Patient seen and case discussed with attending, Dr. Hilton. - Date & Time Date: 05/29/17 Time: 19:47 <Cliff Hilton - Last Filed: 05/30/17 16:57> Results - Vital Signs Recent Vital Signs: Last Vital Signs Temp 98.3 F 05/30/17 07:30 Pulse 72 05/30/17 07:30 Resp 18 05/30/17 07:30 BP 91/54 L 05/30/17 07:30 Pulse Ox 96 05/30/17 07:30 - Labs Result Diagrams: 05/30/17 07:00 05/30/17 07:00 Labs: Laboratory Results - last 24 hr 05/29/17 05/29/17 05/29/17 19:00 19:00 19:00 WBC RBC Hgb Hct MCV MCH MCHC RDW Plt Count MPV Gran % Lymph % (Auto) Maries % (Auto) Eos % (Auto) Baso % (Auto) Gran # Lymph # Maries # Eos # Baso # Retic Count 2.88 H PT INR APTT pO2 VBG pH VBG pCO2 VBG HCO3 VBG Total CO2 VBG O2 Sat (Calc) VBG Base Excess VBG Potassium Sodium Chloride Glucose Lactate FiO2 Potassium Carbon Dioxide Anion Gap BUN Creatinine Est GFR ( Amer) Est GFR (Non-Af Amer) Random Glucose Hemoglobin A1c Calcium Phosphorus Magnesium Iron 24 L TIBC 142 L % Saturation 17 L Ferritin 660.0 Total Bilirubin AST ALT Alkaline Phosphatase Total Protein Albumin Globulin Albumin/Globulin Ratio Vitamin B12 604 Folate 3.9 TSH 3rd Generation Venous Blood Potassium Urine Color Urine Appearance Urine pH Ur Specific [place] Urine Protein Urine Glucose (UA) Urine Ketones Urine Blood Urine Nitrate Urine Bilirubin Urine Urobilinogen Ur Leukocyte Esterase Urine RBC Urine WBC Ur Epithelial Cells Urine Bacteria Urine Other Urine Opiates Screen Urine Methadone Screen Ur Barbiturates Screen Ur Phencyclidine Scrn Ur Amphetamines Screen U Benzodiazepines Scrn U Oth Cocaine Metabols U Cannabinoids Screen Hepatitis A IgM Ab Hep Bs Antigen Hep B Core IgM Ab Hepatitis C Antibody 05/29/17 05/30/17 05/30/17 19:19 07:00 07:00 WBC 16.7 H D RBC 3.12 L Hgb 8.5 L Hct 26.8 L MCV 85.9 MCH 27.2 MCHC 31.7 RDW 15.6 H Plt Count 545 H MPV 9.0 Gran % 83.8 H Lymph % (Auto) 8.9 L Maries % (Auto) 6.8 H Eos % (Auto) 0.4 L Baso % (Auto) 0.1 Gran # 14.02 H Lymph # 1.5 Maries # 1.1 H Eos # 0.1 Baso # 0.01 Retic Count PT INR APTT pO2 30 VBG pH 7.43 VBG pCO2 50.0 VBG HCO3 33.2 H VBG Total CO2 34.7 H VBG O2 Sat (Calc) 62.1 VBG Base Excess 7.5 H VBG Potassium 3.5 L Sodium 135.0 139 Chloride 103.0 107 Glucose 92 Lactate 1.0 FiO2 21.0 Potassium 5.0 Carbon Dioxide 28 Anion Gap 8 L BUN 11 Creatinine 0.8 Est GFR ( Amer) > 60 Est GFR (Non-Af Amer) > 60 Random Glucose 87 Hemoglobin A1c Calcium 9.0 Phosphorus 3.7 Magnesium 1.7 Iron TIBC % Saturation Ferritin Total Bilirubin 0.2 AST 22 ALT 20 Alkaline Phosphatase 91 Total Protein 6.4 Albumin 2.3 L Globulin 4.0 Albumin/Globulin Ratio 0.6 L Vitamin B12 Folate TSH 3rd Generation Venous Blood Potassium 3.5 L Urine Color Urine Appearance Urine pH Ur Specific [place] Urine Protein Urine Glucose (UA) Urine Ketones Urine Blood Urine Nitrate Urine Bilirubin Urine Urobilinogen Ur Leukocyte Esterase Urine RBC Urine WBC Ur Epithelial Cells Urine Bacteria Urine Other Urine Opiates Screen Urine Methadone Screen Ur Barbiturates Screen Ur Phencyclidine Scrn Ur Amphetamines Screen U Benzodiazepines Scrn U Oth Cocaine Metabols U Cannabinoids Screen Hepatitis A IgM Ab Hep Bs Antigen Hep B Core IgM Ab Hepatitis C Antibody 05/30/17 05/30/17 05/30/17 07:00 07:00 07:00 WBC RBC Hgb Hct MCV MCH MCHC RDW Plt Count MPV Gran % Lymph % (Auto) Maries % (Auto) Eos % (Auto) Baso % (Auto) Gran # Lymph # Maries # Eos # Baso # Retic Count PT INR APTT pO2 VBG pH VBG pCO2 VBG HCO3 VBG Total CO2 VBG O2 Sat (Calc) VBG Base Excess VBG Potassium Sodium Chloride Glucose Lactate FiO2 Potassium Carbon Dioxide Anion Gap BUN Creatinine Est GFR ( Amer) Est GFR (Non-Af Amer) Random Glucose Hemoglobin A1c 5.9 Calcium Phosphorus Magnesium Iron TIBC % Saturation Ferritin Total Bilirubin AST ALT Alkaline Phosphatase Total Protein Albumin Globulin Albumin/Globulin Ratio Vitamin B12 Folate TSH 3rd Generation 1.32 Venous Blood Potassium Urine Color Urine Appearance Urine pH Ur Specific [place] Urine Protein Urine Glucose (UA) Urine Ketones Urine Blood Urine Nitrate Urine Bilirubin Urine Urobilinogen Ur Leukocyte Esterase Urine RBC Urine WBC Ur Epithelial Cells Urine Bacteria Urine Other Urine Opiates Screen Urine Methadone Screen Ur Barbiturates Screen Ur Phencyclidine Scrn Ur Amphetamines Screen U Benzodiazepines Scrn U Oth Cocaine Metabols U Cannabinoids Screen Hepatitis A IgM Ab Negative Hep Bs Antigen Negative Hep B Core IgM Ab Negative Hepatitis C Antibody Reactive 05/30/17 05/30/17 05/30/17 07:00 09:34 09:34 WBC RBC Hgb Hct MCV MCH MCHC RDW Plt Count MPV Gran % Lymph % (Auto) Maries % (Auto) Eos % (Auto) Baso % (Auto) Gran # Lymph # Maries # Eos # Baso # Retic Count PT 16.2 H INR 1.40 H APTT 28.8 pO2 VBG pH VBG pCO2 VBG HCO3 VBG Total CO2 VBG O2 Sat (Calc) VBG Base Excess VBG Potassium Sodium Chloride Glucose Lactate FiO2 Potassium Carbon Dioxide Anion Gap BUN Creatinine Est GFR ( Amer) Est GFR (Non-Af Amer) Random Glucose Hemoglobin A1c Calcium Phosphorus Magnesium Iron TIBC % Saturation Ferritin Total Bilirubin AST ALT Alkaline Phosphatase Total Protein Albumin Globulin Albumin/Globulin Ratio Vitamin B12 Folate TSH 3rd Generation Venous Blood Potassium Urine Color Yellow Urine Appearance Clear Urine pH 6.0 Ur Specific [place] 1.015 Urine Protein 30 H Urine Glucose (UA) Negative Urine Ketones Trace H Urine Blood Trace-intact H Urine Nitrate Negative Urine Bilirubin Negative Urine Urobilinogen 0.2 Ur Leukocyte Esterase Trace H Urine RBC 1 - 3 Urine WBC 2 - 5 Ur Epithelial Cells 4 - 5 Urine Bacteria Mod Urine Other Trichomonas Urine Opiates Screen Positive H Urine Methadone Screen Negative Ur Barbiturates Screen Negative Ur Phencyclidine Scrn Negative Ur Amphetamines Screen Negative U Benzodiazepines Scrn Negative U Oth Cocaine Metabols Negative U Cannabinoids Screen Negative Hepatitis A IgM Ab Hep Bs Antigen Hep B Core IgM Ab Hepatitis C Antibody Attending/Attestation - Attestation I have personally seen and examined this patient.: Yes I have fully participated in the care of the patient.: Yes I have reviewed all pertinent clinical information: Yes Notes (Text): 05/30/17 16:48 attending note; Patient seen and examined with resident. Patient is a 41 year old female with a past medical history significant for Hepatitis C and polysubstance abuse who presents with a constant sharp pain in the right buttock radiating to the right leg that started suddenly 8 weeks ago with no inciting event with associated right inguinal mass. patient denies any fevers, chills. Denies any urinary or bowel symptoms. surgery evaluation appreciated. patient needs possible biopsy of the thigh mass. HIV, hepatitis profile ordered. CT abdomen and pelvis ordered. Patient denies using IV drugs currently. Leukocytosis/anemia; secondary to sepsis. Patient is started on IV vancomycin and Zosyn. ID evaluation requested. the diagnosis and follow-up plan discussed with patient in detail. upon discharge the patient will follow-up with PMD of choice.
--- NOTE | 2017-05-29 20:35 | PCM.SEPTIC ---
Sepsis Progress Note - Reassessment Type Date of Evaluation: 05/29/17 Time of Evaluation: 20:34 Reassessment Type: Non-invasive reassessment - Non Invasive Reassessment Were the most recent vital sign reviewed: Yes Vital Sign (Latest): Temp Pulse Resp BP Pulse Ox 98.0 F 90 19 102/69 99 05/29/17 18:24 05/29/17 18:24 05/29/17 18:25 05/29/17 18:24 05/29/17 18:25 Cardiovascular: Yes: Regular Rate, Rhythm. No: Chest Non Tender, Edema, Gallop , JVD, Murmur, Bradycardia, Tachycardia, Ectopy, Friction Rub, Irregularly Irregular, Other Respiratory: Yes: Normal Breath Sounds. No: Decreased Breath Sounds, Accessory Muscle Use, Crackles, Rales, Rhonchi, Stridor, Wheezing, Respiratory Distress, Plerual Rub, Other Capillary Refill: Normal (Less than 2 sec) Skin: Normal Color
[2017-05-29 20:46] LABS: IRON 24 ug/dL (45-180)
[2017-05-29] MEDS: Morphine 2 mg/ml ISec IVP PRN (20:53)
[2017-05-29 20:56] LABS: TOTAL IRON BINDING CAPACITY 142 ug/dL (265-497)
[2017-05-29 21:15] LABS: % IRON SATURATION 17 % (20-55)
[2017-05-29] MEDS ORDERED: Potassium Chloride 20 mEq ER Tab PO ONE (22:00)
[2017-05-29] MEDS: Vancomycin 1gm in NS 250ml 1 GM/250 ML BAG IVPB SCH (22:45)
[2017-05-30] MEDS ORDERED: Piperacillin/Tazobact 3.375 gm 100 ML IVPB SCH
[2017-05-30] MEDS: Piperacillin/Tazobact 3.375 gm 100 ML IVPB SCH ×4 (01:08→18:50)
[2017-05-30] MEDS: Morphine 2 mg/ml ISec IVP PRN (03:07)
[2017-05-30] MEDS ORDERED: Morphine 2 mg/ml ISec IVP PRN (03:22)
[2017-05-30 07:24] LABS: BASO # 0.01 K/mm3 (0.0-2.0); BASO % 0.1 % (0.0-3.0); EOS # 0.1 (0.0-0.7); EOS % 0.4 % (1.5-5.0); GRAN # 14.02 (1.4-6.5); GRAN % 83.8 % (50.0-68.0); HEMOGLOBIN 8.5 g/dL (12.0-16.0); LYMPH # 1.5 (1.2-3.4); LYMPH % 8.9 % (22.0-35.0); MEAN CELL VOLUME 85.9 fl (80.0-105.0); MEAN CORPUSCULAR HEMOGLOBIN 27.2 pg (25.0-35.0); MEAN CORPUSCULAR HGB CONC 31.7 g/dl (31.0-37.0); MONO # 1.1 (0.1-0.6); MONO % 6.8 % (1.0-6.0); RBC 3.12 10^6/uL (3.5-6.1); RED CELL DISTRIBUTION WIDTH 15.6 % (11.5-14.5); WHITE BLOOD COUNT 16.7 10^3/ul (4.5-11.0)
[2017-05-30 07:36] LABS: INR 1.4 (0.93-1.08); PROTHROMBIN TIME 16.2 SECONDS (9.4-12.5)
[2017-05-30 07:37] LABS: PARTIAL THROMBOPLASTIN TIME 28.8 Seconds (25.1-36.5)
[2017-05-30 07:47] LABS: ALB/GLOB RATIO 0.6 (1.1-1.8); ALBUMIN 2.3 g/dL (3.0-4.8); ALT/SGPT 20 U/L (7-56); AST/SGOT 22 U/L (14-36); BLOOD UREA NITROGEN 11 mg/dL (7-21); GFR AFRICAN-AMERICAN > 60; GFR NON-AFRICAN AMERICAN > 60; MAGNESIUM 1.7 mg/dL (1.7-2.2)
[2017-05-30] MEDS ORDERED: Morphine 5 MG/ML SYRINGE IV PRN (08:32)
[2017-05-30 09:45] LABS: URINE APPEARANCE CLEAR (CLEAR); URINE BILIRUBIN NEGATIVE (NEGATIVE); URINE BLOOD TRACE-INTACT (NEGATIVE); URINE COLOR YELLOW (YELLOW); URINE GLUCOSE (UA) NEGATIVE (NEGATIVE); URINE LEUKOCYTE ESTERASE TRACE Leu/uL (NEGATIVE); URINE NITRATE NEGATIVE (NEGATIVE); URINE PROTEIN 30 mg/dL (<30 mg/dL); URINE UROBILINOGEN 0.2 E.U./dL (<1 E.U./dL)
[2017-05-30 09:54] LABS: URINE BACTERIA MOD (NEG)
[2017-05-30 09:59] LABS: BARBITURATES, UR NEGATIVE (NEGATIVE); BENZODIAZEPINES, UR NEGATIVE (NEGATIVE); PHENCYCLIDINE, UR NEGATIVE (NEGATIVE)
[2017-05-30] MEDS ORDERED: Vancomycin 1gm in NS 250ml 1 GM/250 ML BAG IVPB SCH (10:00)
--- NOTE | 2017-05-30 10:06 | CP.PCM.PN ---
Subjective - Date & Time of Evaluation Date of Evaluation: 05/30/17 Time of Evaluation: 08:00 - Subjective Subjective: General Surgery Progress Note for Dr. Calvillo Patient seen and examined at bedside. Patient reports inability to move right leg. Patient reports no appetite. Chart review indicates patient had break- through pain overnight and was given an extra-dose of morphine. Objective - Vital Signs/Intake and Output Vital Signs (last 24 hours): Temp Pulse Resp BP Pulse Ox 98.3 F 72 18 91/54 L 96 05/30/17 07:30 05/30/17 07:30 05/30/17 07:30 05/30/17 07:30 05/30/17 07:30 Intake and Output: 05/30/17 05/30/17 06:59 18:59 Intake Total 600 Balance 600 - Medications Medications: Current Medications Acetaminophen (Tylenol 325mg Tab) 650 mg PO Q4H PRN PRN Reason: Fever >100.5 F Last Admin: 05/29/17 23:25 Dose: 650 mg Heparin Sodium (Porcine) (Heparin) 5,000 units SC Q12 [facility] PRN Reason: Protocol Last Admin: 05/29/17 23:11 Dose: 5,000 units Sodium Chloride (Sodium Chloride 0.9%) 1,000 mls @ 100 mls/hr IV .Q10H [facility] Last Admin: 05/29/17 15:44 Dose: 100 mls/hr Potassium Chloride 40 meq/ (Sodium Chloride) 1,020 mls @ 100 mls/hr IV .[id number] [facility] Last Admin: 05/30/17 08:56 Dose: 100 mls/hr Vancomycin HCl (Vancomycin 1gm) 1 gm in 250 mls @ 167 mls/hr IVPB Q12H [facility] PRN Reason: Protocol Stop: 06/07/17 22:01 Last Admin: 05/29/17 22:45 Dose: Not Given Piperacillin Sod/Tazobactam Sod (Zosyn 3.375 In Ns 100ml) 100 mls @ 200 mls/hr IVPB Q6 [facility] PRN Reason: Protocol Stop: 06/08/17 00:01 Last Admin: 05/30/17 06:40 Dose: 200 mls/hr Morphine Sulfate (Morphine) 2 mg IV Q6H PRN PRN Reason: Pain, severe (8-10) Last Admin: 05/30/17 08:56 Dose: 2 mg Ondansetron HCl (Zofran Inj) 4 mg IVP Q4H PRN PRN Reason: Nausea/Vomiting Pantoprazole Sodium (Protonix Inj) 40 mg IVP DAILY [facility] - Labs Labs: 05/30/17 07:00 05/30/17 07:00 PT 16.2 SECONDS (9.4-12.5) H 05/30/17 07:00 INR 1.40 (0.93-1.08) H 05/30/17 07:00 APTT 28.8 Seconds (25.1-36.5) 05/30/17 07:00 - Constitutional Appears: In Acute Distress - Head Exam Head Exam: ATRAUMATIC, NORMOCEPHALIC - Eye Exam Eye Exam: EOMI, Normal appearance - ENT Exam ENT Exam: Mucous Membranes Dry, Normal Oropharynx - Neck Exam Neck Exam: Normal Inspection - Respiratory Exam Respiratory Exam: NORMAL BREATHING PATTERN. absent: Accessory Muscle Use - Cardiovascular Exam Cardiovascular Exam: absent: Tachycardia - GI/Abdominal Exam Additional comments: right subcoastal area in back is hard to touch. - Extremities Exam Additional comments: right leg appears limp and weak, patient demonstrates difficultly with right leg external rotation and hip flexion. - Back Exam Back Exam: CVA tenderness (R). absent: vertebral tenderness - Neurological Exam Neurological Exam: Alert, Awake, Oriented x3 - Psychiatric Exam Psychiatric exam: Anxious - Skin Skin Exam: Dry, Intact, Normal Color, Warm Assessment and Plan - Assessment and Plan (Free Text) Assessment: 41 year old female with a past medical history of polysubstance abuse who presents with a gradually worsening right leg pain and concurrent ipsilateral groin swelling. Hepatitis panel reveals hepatitis C antibody positive. Plan: - Biopsy of retroperitoneal mass scheduled for today, courtesy of interventional radiologist, Dr. Toro Alvarez - Leukocystosis with neutrophil predominance still persist; continue antibiotics ; ID consulted - CT impression reads as multiple necrotic masses/abscess identified in the right thigh which is edematous. Multiple pelvic and retroperitoneal masses several of which are necrotic all of which suggests an infectious/ inflammatory etiology. Subhepatic mass with air-fluid levels of multiple ocular also the air likely abscess formation. - HIV 1 &2 antigen and antibody, non-reactive while hepatitis C antibody was reactive. - Will plan for possible I&D of the right groin mass. Case discussed with Dr. Rajinder Nelson DO, PGY-1
[2017-05-30 10:07] LABS: OPIATES, UR POSITIVE (NEGATIVE)
[2017-05-30] MEDS ORDERED: HYDROmorphone 0.5 mg/0.5 ml ISec IVP STA (10:12)
[2017-05-30] MEDS: Vancomycin 1gm in NS 250ml 1 GM/250 ML BAG IVPB SCH ×2 (10:45→21:53)
[2017-05-30 12:00] LABS: HEPATITIS B SURFACE AG Negative (NEGATIVE)
[2017-05-30 12:07] LABS: HEPATITIS A IGM NEGATIVE (NEGATIVE); HEPATITIS B CORE AB NEGATIVE (NEGATIVE)
[2017-05-30 12:28] LABS: FOLATE 3.9 ng/mL
[2017-05-30 13:41] LABS: HEPATITIS C ANTIBODY REACTIVE (NEGATIVE)
[2017-05-30] MEDS: HYDROmorphone 0.5 mg/0.5 ml ISec IVP PRN ×2 (14:53→20:41)
--- NOTE | 2017-05-30 15:23 | CP.PCM.PN ---
<Yaima Francisco - Last Filed: 05/30/17 14:46> Subjective - Date & Time of Evaluation Date of Evaluation: 05/30/17 Time of Evaluation: 07:30 - Subjective Subjective: Yaima Francisco DO PGY1 - IM Progress Note Patient seen and examined at bedside. No acute events overnight. Patient complaining of severe back and leg pain. Patient denies fevers, chills, nausea, vomiting, diarrhea. She is worried about the procedures she is to have for the findings on her imaging studies. She repeatedly states that she has never used IV drugs, and has never had any medical problems prior to two months ago. She denies a history of STDs, HIV, or hepatitis. Objective - Vital Signs/Intake and Output Vital Signs (last 24 hours): Temp Pulse Resp BP Pulse Ox 98.3 F 72 18 91/54 L 96 05/30/17 07:30 05/30/17 07:30 05/30/17 07:30 05/30/17 07:30 05/30/17 07:30 Intake and Output: 05/30/17 05/30/17 06:59 18:59 Intake Total 600 600 Balance 600 600 - Medications Medications: Current Medications Acetaminophen (Tylenol 325mg Tab) 650 mg PO Q4H PRN PRN Reason: Fever >100.5 F Last Admin: 05/29/17 23:25 Dose: 650 mg Heparin Sodium (Porcine) (Heparin) 5,000 units SC Q12 [facility] PRN Reason: Protocol Last Admin: 05/30/17 10:46 Dose: 5,000 units Hydromorphone HCl (Dilaudid) 0.5 mg IVP Q6H PRN PRN Reason: Pain, severe (8-10) Sodium Chloride (Sodium Chloride 0.9%) 1,000 mls @ 100 mls/hr IV .Q10H [facility] Last Admin: 05/29/17 15:44 Dose: 100 mls/hr Potassium Chloride 40 meq/ (Sodium Chloride) 1,020 mls @ 100 mls/hr IV .[id number] [facility] Last Admin: 05/30/17 08:56 Dose: 100 mls/hr Vancomycin HCl (Vancomycin 1gm) 1 gm in 250 mls @ 167 mls/hr IVPB Q12H [facility] PRN Reason: Protocol Stop: 06/07/17 22:01 Last Admin: 05/30/17 10:45 Dose: 167 mls/hr Piperacillin Sod/Tazobactam Sod (Zosyn 3.375 In Ns 100ml) 100 mls @ 200 mls/hr IVPB Q6 [facility] PRN Reason: Protocol Stop: 06/08/17 00:01 Last Admin: 05/30/17 12:57 Dose: 200 mls/hr Ondansetron HCl (Zofran Inj) 4 mg IVP Q4H PRN PRN Reason: Nausea/Vomiting Pantoprazole Sodium (Protonix Inj) 40 mg IVP DAILY [facility] Last Admin: 05/30/17 10:45 Dose: 40 mg - Labs Labs: 05/30/17 07:00 05/30/17 07:00 PT 16.2 SECONDS (9.4-12.5) H 05/30/17 07:00 INR 1.40 (0.93-1.08) H 05/30/17 07:00 APTT 28.8 Seconds (25.1-36.5) 05/30/17 07:00 - Constitutional Appears: Non-toxic, In Acute Distress (Mild) - Head Exam Head Exam: ATRAUMATIC, NORMOCEPHALIC - Eye Exam Eye Exam: EOMI, Normal appearance, PERRL - ENT Exam ENT Exam: Mucous Membranes Moist - Respiratory Exam Respiratory Exam: Clear to Ausculation Bilateral, NORMAL BREATHING PATTERN - Cardiovascular Exam Cardiovascular Exam: RRR, +S1, +S2 - GI/Abdominal Exam GI & Abdominal Exam: Soft, Normal Bowel Sounds. absent: Tenderness - Extremities Exam Extremities Exam: absent: Calf Tenderness, Pedal Edema Additional comments: Atrophy of bilateral calves Right groin with large, soft, edematous, nontender, fluctuant mass - Neurological Exam Neurological Exam: Alert, Awake, Oriented x3 - Psychiatric Exam Psychiatric exam: Anxious Additional comments: Patient crying, but no tears - Skin Skin Exam: Dry, Intact, Normal Color Assessment and Plan - Assessment and Plan (Free Text) Assessment: 41 year old female with a past medical history significant for Hepatitis C and polysubstance abuse who presents with a constant sharp pain in the right buttock radiating to the right leg that started suddenly 8 weeks ago with no inciting event with associated right inguinal mass. Plan: 1. RLE Mass with associated Right Sided Sciatica -CT Chest/Abdomen/Pelvis shows multiple necrotic appearing masses/fluid-filled collections in right groin/thigh, retroperitoneal pelvis, subhepatic intraabdomen. -Leukocytosis improving, tachycardia resolved, without fever or tachypnea -Continue IV Vancomycin and IV Zosyn per ID -Tylenol PRN for fever -Pain regimen increased to Dilauded 0.5mg IV Q6H PRN -Normal Saline at 3cc/kg/hr (175 ml/hr) -Zofran PRN for N/V -Procal indeterminate, blood and urine cultures pending -Quantiferon gold and RPR ordered -Surgery and ID consulted, all recommendations appreciated -IR (Dr. Alvarez) consulted for aspiration of subhepatic fluid collection; to be sent for culture and smear 2. Anemia - Hgb dropped to 8.5 from 10.4 yesterday; after fluid resuscitation; no signs of active bleeding -Type and screen ordered - Iron studies show low serum iron, TIBC, and %sat, but elevated ferritin. Likely iron deficiency considering poor nutritional intake, with elevated ferritin 2/2 infection - B12 and folate wnl - Reticulocyte count slightly elevated; ordered haptoglobin and LDH with AM labs to r/o hemolysis - TSH wnl - Peripheral smear pending - Monitor with daily CBC's 3. Thrombocytosis -Likely reactive; improving -Peripheral smear pending -DVT Prophylaxis 4. Hypokalemia -Resolved -Monitor with daily CMP 5. History of Hepatitis C -Hepatitis panel shows reactive for hepatitis C -HIV screen negative -ID consulted, all recommendations appreciated GI Prophylaxis: Protonix DVT Prophylaxis: Heparin and SCD's Patient seen and case discussed with attending, Dr. Hilton. <Cliff Hilton - Last Filed: 05/30/17 17:02> Objective - Vital Signs/Intake and Output Vital Signs (last 24 hours): Temp Pulse Resp BP Pulse Ox 98.3 F 72 18 91/54 L 96 05/30/17 07:30 05/30/17 07:30 05/30/17 07:30 05/30/17 07:30 05/30/17 07:30 Intake and Output: 05/30/17 05/30/17 06:59 18:59 Intake Total 600 600 Balance 600 600 - Medications Medications: Current Medications Acetaminophen (Tylenol 325mg Tab) 650 mg PO Q4H PRN PRN Reason: Fever >100.5 F Last Admin: 05/29/17 23:25 Dose: 650 mg Heparin Sodium (Porcine) (Heparin) 5,000 units SC Q12 [facility] PRN Reason: Protocol Last Admin: 05/30/17 10:46 Dose: 5,000 units Hydromorphone HCl (Dilaudid) 0.5 mg IVP Q6H PRN PRN Reason: Pain, severe (8-10) Last Admin: 05/30/17 14:53 Dose: 0.5 mg Vancomycin HCl (Vancomycin 1gm) 1 gm in 250 mls @ 167 mls/hr IVPB Q12H [facility] PRN Reason: Protocol Stop: 06/07/17 22:01 Last Admin: 05/30/17 10:45 Dose: 167 mls/hr Piperacillin Sod/Tazobactam Sod (Zosyn 3.375 In Ns 100ml) 100 mls @ 200 mls/hr IVPB Q6 [facility] PRN Reason: Protocol Stop: 06/08/17 00:01 Last Admin: 05/30/17 12:57 Dose: 200 mls/hr Sodium Chloride (Sodium Chloride 0.9%) 1,000 mls @ 175 mls/hr IV .[id number] [facility] Last Admin: 05/30/17 15:50 Dose: 175 mls/hr Ondansetron HCl (Zofran Inj) 4 mg IVP Q4H PRN PRN Reason: Nausea/Vomiting Pantoprazole Sodium (Protonix Inj) 40 mg IVP DAILY [facility] Last Admin: 05/30/17 10:45 Dose: 40 mg Polyethylene Glycol (Miralax) 17 gm PO BID [facility] - Labs Labs: 05/30/17 07:00 05/30/17 07:00 PT 16.2 SECONDS (9.4-12.5) H 05/30/17 07:00 INR 1.40 (0.93-1.08) H 05/30/17 07:00 APTT 28.8 Seconds (25.1-36.5) 05/30/17 07:00 Attending/Attestation - Attestation I have personally seen and examined this patient.: Yes I have fully participated in the care of the patient.: Yes I have reviewed all pertinent clinical information, including history, physical exam and plan: Yes Notes (Text): 01/26/18 16:57 attending note; Patient seen and examined with resident. Patient is a 41 year old female with a past medical history significant for Hepatitis C and polysubstance abuse who presents with a constant sharp pain in the right buttock radiating to the right leg that started suddenly 8 weeks ago with no inciting event with associated right inguinal mass. CT chest abdomen and pelvis showed multiple necrotic masses in right thigh, pelvic and subhepatic area. CT scan reviewed with Dr. Toro Alvarez. Plan for CT-guided aspiration of retroperitoneal mass. surgery evaluation appreciated. patient needs possible biopsy of the thigh mass. HIV is negative. Hepatitis C antibody is positive. Leukocytosis; resolving; anemia; Workup ordered. Patient is started on IV vancomycin and Zosyn. ID evaluation requested. the diagnosis and follow-up plan discussed with patient in detail. upon discharge the patient will follow-up with PMD of choice.
[2017-05-30] MEDS ORDERED: Sodium Chloride 0.9% 1,000 ML IV SCH (15:44)
[2017-05-30] MEDS ORDERED: Midazolam 2 MG/2 ML VIAL ONE (16:02)
--- NOTE | 2017-05-30 17:50 | CP.PCM.CON ---
History of Present Illness - History of Present Illness History of Present Illness: 41 year old female with PMH of Hepatitis C, polysubstance abuse, S/P breast augmentation surgery, came in to [facility] complaining of about a 2 month history of right buttock pain which radiates to her right leg, which has worsened over the past few days. She also noted some swelling over her right inguinal area as well as right inner thigh area. She has been having difficulty ambulating because of the pain. The patient denies specifically injecting around the right groin area, denies animal contacts, no insect bites. She has been seen at [facility] for the same symptoms, and has been on antibiotics during one of the admissions. She denies fever or chills, no nausea or vomiting , no chest pain, no SOB, no headache or dizziness, no abdominal pain, no diarrhea, no dysuria. CT A/P was done which shows right groin mass as well as necrotic masses in the iliacus and ilisoas muscles. Infectious Diseases consult is requested to further evaluate and manage. Ms. Sawyer is a 41 year old female with a past medical history significant for Hepatitis C and polysubstance abuse who presents with a constant sharp pain in the right buttock radiating to the right leg that started suddenly 8 weeks ago with no inciting event with associated right inguinal mass. Patient reports that her symptoms were present when she awoke from sleep approximately the second week of April. The pain has been getting progressively worse since that time despite both OTC anti-inflammatory medications and narcotic pain medications that she received from a friend. She endorses that since the pain has started, she has needed the assistance of crutches to ambulate and that she often does not ambulate whatsoever throughout the day, remaining bed bound. She reports that she has unintentionally lost approximately 40lbs since this pain started, which she attributes to poor appetite due to pain. She also endorses a painless mass on the inside of her right thigh that she noticed at the onset of her pain symptoms. She notes that this has progressively gotten larger throughout the past 8 weeks but that this has increased in size dramatically within the past 2 days. Patient reports that she has been to both [facility] and [facility] for this pain/mass and has been told that she has sciatica and a "swollen lymph node" and discharged home with pain medications. One two of these hospital visits, patient was diagnosed with UTI and had two courses of antibiotics. She denies any fever, chills, headache, changes in her vision, epistaxis, rhinorrhea , gingival bleeding, sore throat, neck pain/stiffness, chest pain, palpitations , syncope, LE edema, SOB, cough, wheezing, pleurisy, hemoptysis, abdominal pain , N/V/D/C, hematemesis, hematochezia, melena, burning/pain with urination, hematuria, urinary output changes, urinary/bowel incontinence, vaginal discharge /bleeding, changes/abnormal menstrual cycle, skin changes, numbness/tingling/ weakness of any extremity, recent travel, new sexual partners or any sick contacts. PMH: Hepatitis C and polysubstance abuse PSH: Breast augmentation and deviated septum repair Family History: Denies Social History: Endorses current half pack per day tobacco use with 10 year pack smoking history, social alcohol use, and former cocaine and heroin abuse ( [facility] 05/28/16); Lives in [place] Allergies: NKDA Home Medications: As per MAR LMP: April 17 Review of Systems - Review of Systems All systems: reviewed and no additional remarkable complaints except (as per HPI ) Past Patient History - Infectious Disease Hx of Infectious Diseases: None - Past Medical History & Family History Past Medical History?: No - Past Social History Smoking Status: Heavy Smoker > 10 Cigarettes Daily - CARDIAC Hx Cardiac Disorders: No Hx Hypertension: No - PULMONARY Hx Respiratory Disorders: No - NEUROLOGICAL Hx Neurological Disorder: No - HEENT Hx HEENT Problems: No - RENAL Hx Chronic Kidney Disease: No - ENDOCRINE/METABOLIC Hx Endocrine Disorders: No - HEMATOLOGICAL/ONCOLOGICAL Hx Blood Disorders: No - INTEGUMENTARY Hx Dermatological Problems: No - MUSCULOSKELETAL/RHEUMATOLOGICAL Hx Musculoskeletal Disorders: Yes Hx Back Pain: Yes Other/Comment: Sciatica - GASTROINTESTINAL Hx Gastrointestinal Disorders: No - GENITOURINARY/GYNECOLOGICAL Hx Genitourinary Disorders: No Hx Sexually Transmitted Disorders: No - PSYCHIATRIC Hx Substance Use: Yes - SURGICAL HISTORY Hx Section: Yes (x2) Other/Comment: BREAST AUGMENTATION, NASAL R/T DEVIATED SEPTUM - ANESTHESIA Hx Anesthesia: Yes Hx Anesthesia Reactions: No Hx Malignant Hyperthermia: No Meds Allergies/Adverse Reactions: Allergies Allergy/AdvReac Type Severity Reaction Status Date / Time No Known Allergies Allergy Verified 05/29/17 13:13 - Medications Medications: Current Medications Acetaminophen (Tylenol 325mg Tab) 650 mg PO Q4H PRN PRN Reason: Fever >100.5 F Last Admin: 05/29/17 23:25 Dose: 650 mg Heparin Sodium (Porcine) (Heparin) 5,000 units SC Q12 [facility] PRN Reason: Protocol Last Admin: 05/29/17 23:11 Dose: 5,000 units Sodium Chloride (Sodium Chloride 0.9%) 1,000 mls @ 100 mls/hr IV .Q10H [facility] Last Admin: 05/29/17 15:44 Dose: 100 mls/hr Potassium Chloride 40 meq/ (Sodium Chloride) 1,020 mls @ 100 mls/hr IV .[id number] [facility] Last Admin: 05/29/17 19:11 Dose: 100 mls/hr Vancomycin HCl (Vancomycin 1gm) 1 gm in 250 mls @ 167 mls/hr IVPB Q12H [facility] PRN Reason: Protocol Stop: 06/07/17 22:01 Last Admin: 05/29/17 22:45 Dose: Not Given Piperacillin Sod/Tazobactam Sod (Zosyn 3.375 In Ns 100ml) 100 mls @ 200 mls/hr IVPB Q6 [facility] PRN Reason: Protocol Stop: 06/08/17 00:01 Last Admin: 05/30/17 06:40 Dose: 200 mls/hr Morphine Sulfate (Morphine) 2 mg IVP Q6H PRN PRN Reason: Pain, severe (8-10) Ondansetron HCl (Zofran Inj) 4 mg IVP Q4H PRN PRN Reason: Nausea/Vomiting Pantoprazole Sodium (Protonix Inj) 40 mg IVP DAILY [facility] Physical Exam - Constitutional Appears: Non-toxic, No Acute Distress - Head Exam Head Exam: NORMAL INSPECTION - ENT Exam ENT Exam: Mucous Membranes Moist - Neck Exam Neck exam: Negative for: Lymphadenopathy, Meningismus - Respiratory Exam Respiratory Exam: Decreased Breath Sounds - Cardiovascular Exam Cardiovascular Exam: +S1, +S2 - GI/Abdominal Exam GI & Abdominal Exam: Soft. absent: Tenderness - Extremities Exam Additional comments: right inguinal area with mass noted, non-tender, non-fluctuant Results - Vital Signs Recent Vital Signs: Last Vital Signs Temp 98.0 F 05/29/17 18:24 Pulse 90 01/25/18 18:24 Resp 20 05/29/17 19:42 BP 102/69 05/29/17 18:24 Pulse Ox 99 05/29/17 18:25 - Labs Result Diagrams: 05/30/17 07:00 05/30/17 07:00 Labs: Laboratory Results - last 24 hr 05/29/17 05/29/17 05/29/17 19:00 19:00 19:19 Retic Count 2.88 H pO2 30 VBG pH 7.43 VBG pCO2 50.0 VBG HCO3 33.2 H VBG Total CO2 34.7 H VBG O2 Sat (Calc) 62.1 VBG Base Excess 7.5 H VBG Potassium 3.5 L Sodium 135.0 Chloride 103.0 Glucose 92 Lactate 1.0 FiO2 21.0 Iron 24 L TIBC 142 L % Saturation 17 L Venous Blood Potassium 3.5 L Assessment & Plan - Assessment and Plan (Free Text) Plan: Assessment right inguinal mass with necrotic masses also found in the iliacus and ilipsoas muscles, R/O fungal, mycobacterial or bacterial infection R/O malignancy Hepatitis C polysubstance abuse S/P breast augmentation surgery Plan started the patient on Vancomycin and Zosyn pending blood cx; patient is for IR- guided sampling and will follow up tissue pathology, cultures, fungal and AFB cultures will monitor clinically Hepatitis C should be addressed as an outpatient
[2017-05-30] MEDS: POLYETHYLENE GLYCOL 3350 17 GM/Dose PACKET PO SCH ×2 (18:50→18:54)
--- NOTE | 2017-05-30 21:29 | CT ---
PROCEDURE: CT-guided retroperitoneal abscess drainage. HISTORY: Fever and sepsis. Right lower quadrant retroperitoneal abscess. PHYSICIAN(S): Toro Alvarez MD. TECHNIQUE: The relative risks and indications for the procedure were explained to the patient and informed consent obtained. The patient was placed in a prone position on the CT scanner and preliminary images through the lower abdomen performed. This revealed a oblong 7 x 11 cm abscess in the right retroperitoneum extending from the liver to the iliac crest. A right posterior approach was selected and the area prepped/draped in the usual sterile fashion. Conscious sedation and monitoring were provided throughout the procedure by nurse. An 18-gauge needle was advanced into the collection and 10 cc of purulent fluid aspirated. A specimen was sent to microbiology. A 0.035 J-wire was coiled within the fluid collection. Sequential dilatation was performed with subsequent placement of a 14 Indian pigtail drain. Approximately 100 cc of purulent fluid was aspirated. The cavity was lavaged with normal saline. Unfortunately, the retroperitoneal abscess did not drain completely. The catheter will be flushed frequently and early follow-up CT performed. TPA installation into the abscess can be considered if incomplete drainage persists. The drain was sutured to the skin and placed to gravity drainage. Completion images were performed. The patient tolerated the procedure well. IMPRESSION: 1. CT-guided right lower quadrant retroperitoneal abscess drainage as described above.
[2017-05-31] MEDS: Piperacillin/Tazobact 3.375 gm 100 ML IVPB SCH ×4 (01:25→23:15)
[2017-05-31] MEDS: HYDROmorphone 0.5 mg/0.5 ml ISec IVP PRN ×4 (02:46→20:55)
[2017-05-31 08:23] LABS: BASO # 0.02 K/mm3 (0.0-2.0); BASO % 0.1 % (0.0-3.0); EOS # 0.1 (0.0-0.7); EOS % 0.3 % (1.5-5.0); GRAN # 14.24 (1.4-6.5); GRAN % 82.7 % (50.0-68.0); HEMOGLOBIN 8.1 g/dL (12.0-16.0); LYMPH # 1.9 (1.2-3.4); LYMPH % 10.7 % (22.0-35.0); MEAN CELL VOLUME 83.6 fl (80.0-105.0); MEAN CORPUSCULAR HGB CONC 31.2 g/dl (31.0-37.0); MEAN PLATELET VOLUME 8.8 fl (7.0-11.0); MONO # 1.1 (0.1-0.6); MONO % 6.2 % (1.0-6.0); RBC 3.11 10^6/uL (3.5-6.1); RED CELL DISTRIBUTION WIDTH 15.6 % (11.5-14.5); WHITE BLOOD COUNT 17.2 10^3/ul (4.5-11.0)
[2017-05-31 08:34] LABS: IRON 14 ug/dL (45-180)
[2017-05-31 08:44] LABS: % IRON SATURATION 12 % (20-55); TOTAL IRON BINDING CAPACITY 119 ug/dL (265-497)
[2017-05-31 08:49] LABS: ALB/GLOB RATIO 0.6 (1.1-1.8); ALBUMIN 2.2 g/dL (3.0-4.8); ALT/SGPT 24 U/L (7-56); AST/SGOT 13 U/L (14-36); BLOOD UREA NITROGEN 7 mg/dL (7-21); GFR AFRICAN-AMERICAN > 60; GFR NON-AFRICAN AMERICAN > 60
--- NOTE | 2017-05-31 10:03 | CP.PCM.PN ---
<RocaelLam - Last Filed: 05/31/17 17:44> Subjective - Date & Time of Evaluation Date of Evaluation: 05/31/17 Time of Evaluation: 10:03 - Subjective Subjective: Lam Ortaguis PGY1 IM Progress Note Patient was seen and examined at bedside. She is anxious about her condition and is worried about her kids not being able to see her. She denies any fevers/ chills, n/v/d, chest pain or other overnight acute events. Objective - Vital Signs/Intake and Output Vital Signs (last 24 hours): Temp Pulse Resp BP Pulse Ox 97.9 F 92 H 20 113/65 99 05/31/17 08:15 05/31/17 08:15 05/31/17 08:15 05/31/17 08:15 05/31/17 08:15 Intake and Output: 05/31/17 05/31/17 06:59 18:59 Intake Total 420 Balance 420 - Medications Medications: Current Medications Acetaminophen (Tylenol 325mg Tab) 650 mg PO Q4H PRN PRN Reason: Fever >100.5 F Last Admin: 05/29/17 23:25 Dose: 650 mg Heparin Sodium (Porcine) (Heparin) 5,000 units SC Q12 [facility] PRN Reason: Protocol Last Admin: 05/30/17 21:52 Dose: 5,000 units Hydromorphone HCl (Dilaudid) 0.5 mg IVP Q6H PRN PRN Reason: Pain, severe (8-10) Last Admin: 05/31/17 08:52 Dose: 0.5 mg Vancomycin HCl (Vancomycin 1gm) 1 gm in 250 mls @ 167 mls/hr IVPB Q12H [facility] PRN Reason: Protocol Stop: 06/07/17 22:01 Last Admin: 05/30/17 21:53 Dose: 167 mls/hr Piperacillin Sod/Tazobactam Sod (Zosyn 3.375 In Ns 100ml) 100 mls @ 200 mls/hr IVPB Q6 [facility] PRN Reason: Protocol Stop: 06/08/17 00:01 Last Admin: 05/31/17 06:37 Dose: 200 mls/hr Sodium Chloride (Sodium Chloride 0.9%) 1,000 mls @ 175 mls/hr IV .Q5H43M NORY Last Admin: 05/30/17 15:50 Dose: 175 mls/hr Iron Sucrose 200 mg/ Sodium (Chloride) 110 mls @ 110 mls/hr IVPB ONCE [facility] Stop: 06/03/17 09:31 Ondansetron HCl (Zofran Inj) 4 mg IVP Q4H PRN PRN Reason: Nausea/Vomiting Pantoprazole Sodium (Protonix Inj) 40 mg IVP DAILY [facility] Last Admin: 05/30/17 10:45 Dose: 40 mg Polyethylene Glycol (Miralax) 17 gm PO BID N[facility] Last Admin: 05/30/17 18:54 Dose: Not Given - Labs Labs: 05/31/17 08:00 05/31/17 08:00 PT 16.2 SECONDS (9.4-12.5) H 05/30/17 07:00 INR 1.40 (0.93-1.08) H 05/30/17 07:00 APTT 28.8 Seconds (25.1-36.5) 05/30/17 07:00 - Additional Findings Additional findings: - Constitutional Appears: Non-toxic, In No Acute Distress - Head Exam Head Exam: ATRAUMATIC, NORMOCEPHALIC - Eye Exam Eye Exam: EOMI, Normal appearance, PERRL - ENT Exam ENT Exam: Mucous Membranes Moist - Respiratory Exam Respiratory Exam: Clear to Ausculation Bilateral, NORMAL BREATHING PATTERN - Cardiovascular Exam Cardiovascular Exam: RRR, +S1, +S2 - GI/Abdominal Exam GI & Abdominal Exam: Soft, Normal Bowel Sounds. absent: Tenderness - Extremities Exam Extremities Exam: absent: Calf Tenderness, Pedal Edema Additional comments: Atrophy of bilateral calves - Neurological Exam Neurological Exam: Alert, Awake, Oriented x3 - Psychiatric Exam Psychiatric exam: Anxious - Skin Skin Exam: Dry, Intact, Normal Color Assessment and Plan - Assessment and Plan (Free Text) Assessment: 41 year old female with a past medical history significant for Hepatitis C and polysubstance abuse who presents with a constant sharp pain in the right buttock radiating to the right leg that started suddenly 8 weeks ago with no inciting event with associated right inguinal mass. Plan: 1. RLE Mass with associated Right Sided Sciatica s - s/p 100cc purulent fluid aspiration of abscess in right retroperitoneum extending from liver to iliac crest by Dr. Alvarez (IR) - Surgery team to operate today to attempt to drain other pockets of fluid - CT Chest/Abdomen/Pelvis shows multiple necrotic appearing masses/fluid-filled collections in right groin/thigh, retroperitoneal pelvis, subhepatic intraabdomen. - Leukocytosis improving, tachycardia resolved, without fever or tachypnea - Continue IV Vancomycin and IV Zosyn per ID - Tylenol PRN for fever - Pain regimen - Zofran PRN for N/V - Procal indeterminate, - abscess fluid drained by dr. Alvarez growing Staph - blood cultures negative - urine cultures negative - Quantiferon gold and RPR ordered - ID consulted, all recommendations appreciated 2. Anemia - after fluid resuscitation; no signs of active bleeding - Type and screen ordered - Iron studies show low serum iron, TIBC, and %sat, but elevated ferritin. Likely iron deficiency considering poor nutritional intake, with elevated ferritin 2/2 infection - IV venofer started - B12 and folate wnl - Reticulocyte count slightly elevated; ordered haptoglobin and LDH with AM labs to r/o hemolysis - TSH wnl - Peripheral smear pending - Monitor with daily CBC's 3. Thrombocytosis - Likely reactive; improving - Peripheral smear pending - DVT Prophylaxis 4. Hypokalemia - Resolved - Monitor with daily CMP 5. History of Hepatitis C - Hepatitis panel shows reactive for hepatitis C - HIV screen negative - ID consulted, all recommendations appreciated GI Prophylaxis: Protonix DVT Prophylaxis: Heparin and SCD's Patient was seen, examined and discussed with attending, Dr. Yobani Cote PGY1 Pager # [phone] <Cliff Hilton - Last Filed: 06/01/17 16:50> Objective - Vital Signs/Intake and Output Vital Signs (last 24 hours): Temp Pulse Resp BP Pulse Ox 98.1 F 73 18 117/62 86 L 06/01/17 16:28 06/01/17 16:28 06/01/17 16:28 06/01/17 16:28 06/01/17 16:28 Intake and Output: 06/01/17 06/01/17 06:59 18:59 Intake Total 720 240 Output Total 400 400 Balance 320 -160 - Medications Medications: Current Medications Acetaminophen (Tylenol 325mg Tab) 650 mg PO Q4H PRN PRN Reason: Fever >100.5 F Last Admin: 05/29/17 23:25 Dose: 650 mg Acetaminophen (Tylenol 325mg Tab) 975 mg PO Q8H [facility] Last Admin: 06/01/17 12:16 Dose: 975 mg Heparin Sodium (Porcine) (Heparin) 5,000 units SC Q12 [facility] PRN Reason: Protocol Last Admin: 06/01/17 09:11 Dose: 5,000 units Hydromorphone HCl (Dilaudid) 0.5 mg IVP Q4H PRN PRN Reason: Pain, severe (8-10) Last Admin: 06/01/17 13:27 Dose: 0.5 mg Vancomycin HCl (Vancomycin 1gm) 1 gm in 250 mls @ 167 mls/hr IVPB Q12H [facility] PRN Reason: Protocol Stop: 06/07/17 22:01 Last Admin: 06/01/17 09:14 Dose: 167 mls/hr Piperacillin Sod/Tazobactam Sod (Zosyn 3.375 In Ns 100ml) 100 mls @ 200 mls/hr IVPB Q6 [facility] PRN Reason: Protocol Stop: 06/08/17 00:01 Last Admin: 06/01/17 12:17 Dose: 200 mls/hr Lactated Ringer's (Lactated Ringer's) 1,000 mls @ 100 mls/hr IV .Q10H [facility] Last Admin: 06/01/17 09:15 Dose: 100 mls/hr Ondansetron HCl (Zofran Inj) 4 mg IVP Q4H PRN PRN Reason: Nausea/Vomiting Ondansetron HCl (Zofran Inj) 4 mg IVP ONCE PRN PRN Reason: Nausea/Vomiting Oxycodone/Acetaminophen (Percocet 5/325 Mg Tab) 1 tab PO Q6H PRN PRN Reason: Pain, moderate (4-7) Stop: 06/03/17 12:01 Last Admin: 06/01/17 16:20 Dose: 1 tab Pantoprazole Sodium (Protonix Inj) 40 mg IVP DAILY [facility] Last Admin: 06/01/17 09:11 Dose: 40 mg Polyethylene Glycol (Miralax) 17 gm PO BID [facility] Last Admin: 06/01/17 09:11 Dose: 17 gm - Labs Labs: 06/01/17 09:00 06/01/17 09:00 PT 16.2 SECONDS (9.4-12.5) H 05/30/17 07:00 INR 1.40 (0.93-1.08) H 05/30/17 07:00 APTT 28.8 Seconds (25.1-36.5) 05/30/17 07:00 Attending/Attestation - Attestation I have personally seen and examined this patient.: Yes I have fully participated in the care of the patient.: Yes I have reviewed all pertinent clinical information, including history, physical exam and plan: Yes Notes (Text): 06/01/17 16:39 attending note; Patient seen and examined with resident. Patient is a 41 year old female with a past medical history significant for Hepatitis C and polysubstance abuse who presents with a constant sharp pain in the right buttock radiating to the right leg that started suddenly 8 weeks ago with no inciting event with associated right inguinal mass. CT chest abdomen and pelvis showed multiple necrotic masses in right thigh, pelvic and subhepatic area. Status post CT-guided aspiration of right subhepatic abscess. Currently has drain. Monitor closely. Follow up wound culture results. Plan for incision and drainage of right thigh abscess by surgery Dr. Calvillo today. HIV is negative. Hepatitis C antibody is positive. Leukocytosis; resolving; anemia; IV iron given. Patient is started on IV vancomycin and Zosyn. ID evaluation appreciated. the diagnosis and follow-up plan discussed with patient in detail. upon discharge the patient will follow-up with PMD of choice.
[2017-05-31] MEDS: POLYETHYLENE GLYCOL 3350 17 GM/Dose PACKET PO SCH ×2 (10:11→17:07)
[2017-05-31] MEDS: Vancomycin 1gm in NS 250ml 1 GM/250 ML BAG IVPB SCH ×2 (10:14→21:05)
[2017-05-31] MEDS ORDERED: Midazolam 2 MG/2 ML VIAL ONE (10:31)
[2017-05-31] MEDS ORDERED: Propofol 10 mg/ml Inj (20 ML) ONE (10:31)
[2017-05-31] MEDS ORDERED: Sevoflurane - Inhalation Anesthetic Liq (250 ml) ONE (10:42)
[2017-05-31] MEDS ORDERED: HYDROmorphone 0.5 mg/0.5 ml ISec IVP PRN (10:48)
[2017-05-31] MEDS ORDERED: Lactated Ringer's 1,000 ML IV SCH (11:00)
[2017-05-31 11:32] LABS: FOLATE 4.8 ng/mL
[2017-05-31] MEDS ORDERED: HYDROmorphone 0.5 mg/0.5 ml ISec ONE ×3 (11:44→12:23)
[2017-05-31] MEDS ORDERED: HYDROmorphone 0.5 mg/0.5 ml ISec IVP ONE ×3 (11:44→12:23)
--- NOTE | 2017-05-31 12:00 | PCM.SURG1 ---
Surgeon's Initial Post Op Note - Surgeon's Notes Surgeon: Dr. Calvillo House Rn: Corrine PGY1 Type of Anesthesia: General LMA Anesthesia Administered By: Dr. Chad Dangelo Pre-Operative Diagnosis: Right Groin Abscess Operative Findings: See operative report. Large loculated Right groin abscess, Approx 600cc of purulent drainage. Post-Operative Diagnosis: same Operation Performed: Incision and drainage of Right groin abscess Specimen/Specimens Removed: Wound fluid sent for Aerobic, Anaerobic and Fungal cultures Estimated Blood Loss: EBL {In ML}: 10 Blood Products Given: N/A Drains Used: Ramona (x4) Post-Op Condition: Good Date of Surgery/Procedure: 05/31/17 Time of Surgery/Procedure: 12:00
[2017-05-31] MEDS: Lactated Ringer's 1,000 ML IV SCH (12:49)
[2017-05-31] MEDS: Oxycodone/Acetaminophen 5/325 mg Tab PO PRN (13:06)
[2017-06-01] MEDS: HYDROmorphone 0.5 mg/0.5 ml ISec IVP PRN ×6 (00:56→21:59)
--- NOTE | 2017-06-01 01:42 | PN ---
DATE: 05/31/2017 SUBJECTIVE: The patient is in bed, in no acute distress, nontoxic. PHYSICAL EXAMINATION: VITAL SIGNS: Temperature is 98, blood pressure is 92/50, respiratory rate of 16. HEENT: Unremarkable. NECK: Supple. LUNGS: Decreased breath sounds. HEART: Normal S1 and S2. ABDOMEN: Soft. LABORATORY EXAMINATION: Reveals the patient's white count of 17,200, hemoglobin of 8, and platelets of 557. BUN of 7, creatinine of 0.6. Urinalysis is noted. HIV is negative. Hepatitis is negative. Microbiology reveals the body fluid with a Staph aureus. Review of orders reveals vancomycin and Zosyn to be active. ASSESSMENT AND PLAN: This is a 41-year-old female who was seen earlier today in room 570, bed 2 with hepatitis C and polysubstance abuse who was admitted with a right buttock to right leg and in the right inguinal mass, there is necrotic mass found in the iliopsoas muscle. The patient for surgery today, on vancomycin and Zosyn. We will check on the final culture results. Daniel Yancey MD
[2017-06-01] MEDS: Piperacillin/Tazobact 3.375 gm 100 ML IVPB SCH ×4 (05:07→23:10)
[2017-06-01] MEDS: POLYETHYLENE GLYCOL 3350 17 GM/Dose PACKET PO SCH ×2 (09:11→18:01)
[2017-06-01] MEDS: Vancomycin 1gm in NS 250ml 1 GM/250 ML BAG IVPB SCH ×2 (09:14→21:58)
[2017-06-01] MEDS: Lactated Ringer's 1,000 ML IV SCH ×2 (09:15→21:59)
[2017-06-01 09:31] LABS: BASO # 0.03 K/mm3 (0.0-2.0); BASO % 0.2 % (0.0-3.0); EOS # 0.3 (0.0-0.7); EOS % 1.8 % (1.5-5.0); LYMPH # 1.9 (1.2-3.4); LYMPH % 13.3 % (22.0-35.0); MEAN CELL VOLUME 84.3 fl (80.0-105.0); MEAN CORPUSCULAR HEMOGLOBIN 26.1 pg (25.0-35.0); MEAN PLATELET VOLUME 9.3 fl (7.0-11.0); MONO # 0.9 (0.1-0.6); MONO % 6.7 % (1.0-6.0); RBC 3.06 10^6/uL (3.5-6.1); RED CELL DISTRIBUTION WIDTH 15.7 % (11.5-14.5); WHITE BLOOD COUNT 14.1 10^3/ul (4.5-11.0)
[2017-06-01 09:50] LABS: ALB/GLOB RATIO 0.6 (1.1-1.8); ALBUMIN 2.2 g/dL (3.0-4.8)
[2017-06-01] MEDS: Oxycodone/Acetaminophen 5/325 mg Tab PO PRN ×3 (10:32→23:10)
--- NOTE | 2017-06-01 10:55 | CP.PCM.PN ---
Subjective - Date & Time of Evaluation Date of Evaluation: 06/01/17 Time of Evaluation: 07:45 - Subjective Subjective: Surgery Progress note. Dr. Calvillo Pt seen and examined at bedside. No acute events overnight. No F/C. no N/V/D. No new compalaints. Still reports pain to Right groin, but much improved prior to procedure. Reports she is able to move RLE better than before. Objective - Vital Signs/Intake and Output Vital Signs (last 24 hours): Temp Pulse Resp BP Pulse Ox 97.9 F 82 18 100/60 97 06/01/17 08:12 06/01/17 08:12 06/01/17 08:12 06/01/17 08:12 06/01/17 08:12 Intake and Output: 06/01/17 06/01/17 06:59 18:59 Intake Total 720 240 Output Total 400 400 Balance 320 -160 - Medications Medications: Current Medications Acetaminophen (Tylenol 325mg Tab) 650 mg PO Q4H PRN PRN Reason: Fever >100.5 F Last Admin: 05/29/17 23:25 Dose: 650 mg Heparin Sodium (Porcine) (Heparin) 5,000 units SC Q12 NORY PRN Reason: Protocol Last Admin: 06/01/17 09:11 Dose: 5,000 units Hydromorphone HCl (Dilaudid) 0.5 mg IVP Q4H PRN PRN Reason: Pain, severe (8-10) Last Admin: 06/01/17 09:16 Dose: 0.5 mg Vancomycin HCl (Vancomycin 1gm) 1 gm in 250 mls @ 167 mls/hr IVPB Q12H [facility] PRN Reason: Protocol Stop: 06/07/17 22:01 Last Admin: 06/01/17 09:14 Dose: 167 mls/hr Piperacillin Sod/Tazobactam Sod (Zosyn 3.375 In Ns 100ml) 100 mls @ 200 mls/hr IVPB Q6 N[facility] PRN Reason: Protocol Stop: 06/08/17 00:01 Last Admin: 06/01/17 05:07 Dose: 200 mls/hr Lactated Ringer's (Lactated Ringer's) 1,000 mls @ 100 mls/hr IV .Q10H [facility] Last Admin: 06/01/17 09:15 Dose: 100 mls/hr Ondansetron HCl (Zofran Inj) 4 mg IVP Q4H PRN PRN Reason: Nausea/Vomiting Ondansetron HCl (Zofran Inj) 4 mg IVP ONCE PRN PRN Reason: Nausea/Vomiting Oxycodone/Acetaminophen (Percocet 5/325 Mg Tab) 1 tab PO Q6H PRN PRN Reason: Pain, moderate (4-7) Stop: 06/03/17 12:01 Last Admin: 06/01/17 10:32 Dose: 1 tab Pantoprazole Sodium (Protonix Inj) 40 mg IVP DAILY [facility] Last Admin: 06/01/17 09:11 Dose: 40 mg Polyethylene Glycol (Miralax) 17 gm PO BID [facility] Last Admin: 06/01/17 09:11 Dose: 17 gm - Labs Labs: 06/01/17 09:00 06/01/17 09:00 PT 16.2 SECONDS (9.4-12.5) H 05/30/17 07:00 INR 1.40 (0.93-1.08) H 05/30/17 07:00 APTT 28.8 Seconds (25.1-36.5) 05/30/17 07:00 - Constitutional Appears: Non-toxic, No Acute Distress - Head Exam Head Exam: ATRAUMATIC, NORMAL INSPECTION, NORMOCEPHALIC - Eye Exam Eye Exam: EOMI, Normal appearance - ENT Exam ENT Exam: Mucous Membranes Moist - Respiratory Exam Respiratory Exam: NORMAL BREATHING PATTERN. absent: Accessory Muscle Use, Respiratory Distress - Cardiovascular Exam Cardiovascular Exam: absent: JVD - GI/Abdominal Exam GI & Abdominal Exam: Soft. absent: Distended, Firm, Guarding, Rigid, Tenderness - Extremities Exam Additional comments: Right lower extremity dressing in place with gia x4. Still continues to have some drainage. Replaced and clean, dry and intact at this time. Lower extremity distal DP/PT intact. - Neurological Exam Neurological Exam: Alert, Awake, Oriented x3 - Skin Skin Exam: Dry, Intact, Normal Color, Warm Assessment and Plan - Assessment and Plan (Free Text) Assessment: 41yo F s/p R groin I&D of large loculated abscess on 05/31/17. POD1 Plan: - Pain management - Rec PICC line placement for probable long-term abx; patient does have a hx of IVDA, cannot be discharged home with PICC in place. - Abx as per ID - f/u wound culture - Encourage OOBTC Further recs as per Dr. Rajinder Castle PGY1 surgery pager: [phone]
[2017-06-01] MEDS ORDERED: Lactated Ringer's 500 ML IV SCH (11:45)
--- NOTE | 2017-06-01 17:57 | CP.PCM.PN ---
<Lam Cote - Last Filed: 06/01/17 17:54> Subjective - Date & Time of Evaluation Date of Evaluation: 06/01/17 Time of Evaluation: 10:54 - Subjective Subjective: Lam Cote PGY1 IM Progress Note Patient was seen and examined at bedside. Patient is feeling much better and relieved post surgery, with her only complaint being back pain due to drain and lying on her back for an extended period of time. Otherwise, patient feels well. She denies any fevers/chills, n/v/d, chest pain or other overnight acute events. Objective - Vital Signs/Intake and Output Vital Signs (last 24 hours): Temp Pulse Resp BP Pulse Ox 98.1 F 73 18 117/62 86 L 06/01/17 16:28 06/01/17 16:28 06/01/17 16:28 06/01/17 16:28 06/01/17 16:28 Intake and Output: 06/01/17 06/01/17 06:59 18:59 Intake Total 720 240 Output Total 400 400 Balance 320 -160 - Medications Medications: Current Medications Acetaminophen (Tylenol 325mg Tab) 650 mg PO Q4H PRN PRN Reason: Fever >100.5 F Last Admin: 05/29/17 23:25 Dose: 650 mg Acetaminophen (Tylenol 325mg Tab) 975 mg PO Q8H [facility] Last Admin: 06/01/17 12:16 Dose: 975 mg Heparin Sodium (Porcine) (Heparin) 5,000 units SC Q12 N[facility] PRN Reason: Protocol Last Admin: 06/01/17 09:11 Dose: 5,000 units Hydromorphone HCl (Dilaudid) 0.5 mg IVP Q4H PRN PRN Reason: Pain, severe (8-10) Last Admin: 06/01/17 13:27 Dose: 0.5 mg Vancomycin HCl (Vancomycin 1gm) 1 gm in 250 mls @ 167 mls/hr IVPB Q12H [facility] PRN Reason: Protocol Stop: 06/07/17 22:01 Last Admin: 06/01/17 09:14 Dose: 167 mls/hr Piperacillin Sod/Tazobactam Sod (Zosyn 3.375 In Ns 100ml) 100 mls @ 200 mls/hr IVPB Q6 N[facility] PRN Reason: Protocol Stop: 06/08/17 00:01 Last Admin: 06/01/17 12:17 Dose: 200 mls/hr Lactated Ringer's (Lactated Ringer's) 1,000 mls @ 100 mls/hr IV .Q10H [facility] Last Admin: 06/01/17 09:15 Dose: 100 mls/hr Mupirocin (Bactroban Ointment) 1 gm NS BID [facility] Stop: 06/06/17 10:01 Ondansetron HCl (Zofran Inj) 4 mg IVP Q4H PRN PRN Reason: Nausea/Vomiting Ondansetron HCl (Zofran Inj) 4 mg IVP ONCE PRN PRN Reason: Nausea/Vomiting Oxycodone/Acetaminophen (Percocet 5/325 Mg Tab) 1 tab PO Q6H PRN PRN Reason: Pain, moderate (4-7) Stop: 06/03/17 12:01 Last Admin: 06/01/17 16:20 Dose: 1 tab Pantoprazole Sodium (Protonix Inj) 40 mg IVP DAILY [facility] Last Admin: 06/01/17 09:11 Dose: 40 mg Polyethylene Glycol (Miralax) 17 gm PO BID [facility] Last Admin: 06/01/17 09:11 Dose: 17 gm - Labs Labs: 06/01/17 09:00 06/01/17 09:00 PT 16.2 SECONDS (9.4-12.5) H 05/30/17 07:00 INR 1.40 (0.93-1.08) H 05/30/17 07:00 APTT 28.8 Seconds (25.1-36.5) 05/30/17 07:00 - Constitutional Appears: Well, Non-toxic, No Acute Distress - Head Exam Head Exam: NORMAL INSPECTION - Eye Exam Eye Exam: EOMI, Normal appearance, PERRL - ENT Exam ENT Exam: Mucous Membranes Moist - Neck Exam Neck Exam: Normal Inspection - Respiratory Exam Respiratory Exam: NORMAL BREATHING PATTERN. absent: Rales, Rhonchi, Wheezes - Cardiovascular Exam Cardiovascular Exam: RRR, +S1, +S2 - GI/Abdominal Exam GI & Abdominal Exam: Soft. absent: Distended, Tenderness - Extremities Exam Extremities Exam: Normal Inspection Additional comments: surgical dressing in place in R thigh region muscle atrophy noted - Back Exam Additional comments: R subhepatic drain in place, with dressing (c/d/i) - Neurological Exam Neurological Exam: Alert, Awake, Oriented x3 - Psychiatric Exam Psychiatric exam: Normal Affect, Normal Mood - Skin Skin Exam: Normal Color, Warm Assessment and Plan - Assessment and Plan (Free Text) Assessment: 41 year old female with a past medical history significant for Hepatitis C and polysubstance abuse who presents with a constant sharp pain in the right buttock radiating to the right leg that started suddenly 8 weeks ago with no inciting event with associated right inguinal mass. Patient being treated for sepsis due to multiple loculated abscesses Plan: 1. Sepsis 2/2 multiple loculated abscesses - s/p 100cc purulent fluid aspiration of abscess in right retroperitoneum extending from liver to iliac crest by Dr. Orr (IR) - s/p R groin I&D and aspiration of 600cc of purulent fluid from loculated abscess, POD [address] Calvillo (Surgery) - Surgery team recommending PICC line for long-term abx; pt has hx of IVDA and so cannot be discharged home with PICC - Initial CT Chest/Abdomen/Pelvis shows multiple necrotic appearing masses/fluid -filled collections in right groin/thigh, retroperitoneal pelvis, subhepatic intraabdomen. - will need follow up CT C/A/P to assess progression - Leukocytosis improving, tachycardia resolved, without fever or tachypnea - body fluids growing MRSA - Continue IV Vancomycin and IV Zosyn per ID - Tylenol PRN for fever - Pain regimen - Zofran PRN for N/V - Procal indeterminate - blood cultures negative - urine cultures negative - Quantiferon gold and RPR ordered - ID consulted, all recommendations appreciated 2. Anemia - after fluid resuscitation; no signs of active bleeding - Type and screen ordered - Iron studies show low serum iron, TIBC, and %sat, but elevated ferritin. Likely iron deficiency considering poor nutritional intake, with elevated ferritin 2/2 infection - IV venofer stopped given stability of H/H - B12 and folate wnl - TSH wnl - Peripheral smear pending - Monitor with daily CBC's 3. Thrombocytosis - Likely reactive; improving - Peripheral smear pending - DVT Prophylaxis 4. Hypokalemia - Resolved - Monitor with daily CMP 5. History of Hepatitis C - Hepatitis panel shows reactive for hepatitis C - HIV screen negative - ID consulted, all recommendations appreciated GI Prophylaxis: Protonix DVT Prophylaxis: Heparin and SCD's Patient was seen, examined and discussed with attending, Dr. Yobani Cote PGY1 Pager # [phone] <Cliff Hilton - Last Filed: 06/01/17 18:29> Objective - Vital Signs/Intake and Output Vital Signs (last 24 hours): Temp Pulse Resp BP Pulse Ox 98.1 F 73 18 117/62 86 L 06/01/17 16:28 06/01/17 16:28 06/01/17 16:28 06/01/17 16:28 06/01/17 16:28 Intake and Output: 06/01/17 06/01/17 06:59 18:59 Intake Total 720 240 Output Total 400 400 Balance 320 -160 - Medications Medications: Current Medications Acetaminophen (Tylenol 325mg Tab) 650 mg PO Q4H PRN PRN Reason: Fever >100.5 F Last Admin: 05/29/17 23:25 Dose: 650 mg Acetaminophen (Tylenol 325mg Tab) 975 mg PO Q8H [facility] Last Admin: 06/01/17 12:16 Dose: 975 mg Heparin Sodium (Porcine) (Heparin) 5,000 units SC Q12 [facility] PRN Reason: Protocol Last Admin: 06/01/17 09:11 Dose: 5,000 units Hydromorphone HCl (Dilaudid) 0.5 mg IVP Q4H PRN PRN Reason: Pain, severe (8-10) Last Admin: 06/01/17 18:01 Dose: 0.5 mg Vancomycin HCl (Vancomycin 1gm) 1 gm in 250 mls @ 167 mls/hr IVPB Q12H [facility] PRN Reason: Protocol Stop: 06/07/17 22:01 Last Admin: 06/01/17 09:14 Dose: 167 mls/hr Piperacillin Sod/Tazobactam Sod (Zosyn 3.375 In Ns 100ml) 100 mls @ 200 mls/hr IVPB Q6 [facility] PRN Reason: Protocol Stop: 06/08/17 00:01 Last Admin: 06/01/17 18:00 Dose: 200 mls/hr Lactated Ringer's (Lactated Ringer's) 1,000 mls @ 100 mls/hr IV .Q10H [facility] Last Admin: 06/01/17 09:15 Dose: 100 mls/hr Mupirocin (Bactroban Ointment) 1 gm NS BID [facility] Stop: 06/06/17 10:01 Ondansetron HCl (Zofran Inj) 4 mg IVP Q4H PRN PRN Reason: Nausea/Vomiting Ondansetron HCl (Zofran Inj) 4 mg IVP ONCE PRN PRN Reason: Nausea/Vomiting Oxycodone/Acetaminophen (Percocet 5/325 Mg Tab) 1 tab PO Q6H PRN PRN Reason: Pain, moderate (4-7) Stop: 06/03/17 12:01 Last Admin: 06/01/17 16:20 Dose: 1 tab Pantoprazole Sodium (Protonix Inj) 40 mg IVP DAILY [facility] Last Admin: 06/01/17 09:11 Dose: 40 mg Polyethylene Glycol (Miralax) 17 gm PO BID [facility] Last Admin: 06/01/17 18:01 Dose: 17 gm - Labs Labs: 06/01/17 09:00 06/01/17 09:00 PT 16.2 SECONDS (9.4-12.5) H 05/30/17 07:00 INR 1.40 (0.93-1.08) H 05/30/17 07:00 APTT 28.8 Seconds (25.1-36.5) 05/30/17 07:00 Attending/Attestation - Attestation I have personally seen and examined this patient.: Yes I have fully participated in the care of the patient.: Yes I have reviewed all pertinent clinical information, including history, physical exam and plan: Yes Notes (Text): 06/01/17 18:27 attending note; Patient seen and examined with resident. Patient is a 41 year old female with a past medical history significant for Hepatitis C and polysubstance abuse who presents with a constant sharp pain in the right buttock radiating to the right leg that started suddenly 8 weeks ago with no inciting event with associated right inguinal mass. CT chest abdomen and pelvis showed multiple necrotic masses in right thigh, pelvic and subhepatic area. Status post CT-guided aspiration of right subhepatic abscess. Currently has drain. Monitor closely. wound culture shows MRSA. S/p incision and drainage of right thigh abscess by surgery Dr. Calvillo yesterday. about 600 cc pus drained. Patient is started on IV vancomycin and Zosyn. Follow up with ID. Repeat CT in am. follow up with DR. Toro orr for furthur need for Drainage. Patient might need PICC line and possible rehab. HIV is negative. Hepatitis C antibody is positive. Leukocytosis; resolving; anemia; IV iron given. the diagnosis and follow-up plan discussed with patient in detail. upon discharge the patient will follow-up with PMD of choice.
[2017-06-02] MEDS: HYDROmorphone 0.5 mg/0.5 ml ISec IVP PRN ×6 (02:00→21:28)
[2017-06-02] MEDS: Piperacillin/Tazobact 3.375 gm 100 ML IVPB SCH ×2 (05:00→13:11)
[2017-06-02] MEDS: Lactated Ringer's 1,000 ML IV SCH ×2 (06:53→17:55)
[2017-06-02 07:41] LABS: BASO # 0.01 K/mm3 (0.0-2.0); BASO % 0.1 % (0.0-3.0); EOS # 0.2 (0.0-0.7); EOS % 1.6 % (1.5-5.0); GRAN # 9.41 (1.4-6.5); GRAN % 76.3 % (50.0-68.0); LYMPH # 1.7 (1.2-3.4); MEAN CELL VOLUME 83.5 fl (80.0-105.0); MEAN CORPUSCULAR HEMOGLOBIN 25.9 pg (25.0-35.0); MEAN PLATELET VOLUME 8.6 fl (7.0-11.0); RBC 2.97 10^6/uL (3.5-6.1); RED CELL DISTRIBUTION WIDTH 15.7 % (11.5-14.5); WHITE BLOOD COUNT 12.3 10^3/ul (4.5-11.0)
[2017-06-02 07:46] LABS: HEMOGLOBIN 7.7 g/dL (12.0-16.0)
[2017-06-02 07:58] LABS: ALB/GLOB RATIO 0.6 (1.1-1.8); CALCIUM 8.7 mg/dL (8.4-10.5)
--- NOTE | 2017-06-02 07:58 | CP.PCM.PN ---
Subjective - Date & Time of Evaluation Date of Evaluation: 06/02/17 Time of Evaluation: 07:25 - Subjective Subjective: Surgery Progress note. Dr. Calvillo Pt seen and examined at bedside. No acute events ovenight. No N/V/D. no Abd pain. Pain well tolerated. No new complaints. Objective - Vital Signs/Intake and Output Vital Signs (last 24 hours): Temp Pulse Resp BP Pulse Ox 98.1 F 73 18 110/66 86 L 06/01/17 16:28 06/01/17 16:28 06/01/17 16:28 06/01/17 23:00 06/01/17 16:28 - Medications Medications: Current Medications Acetaminophen (Tylenol 325mg Tab) 650 mg PO Q4H PRN PRN Reason: Fever >100.5 F Last Admin: 05/29/17 23:25 Dose: 650 mg Acetaminophen (Tylenol 325mg Tab) 975 mg PO Q8H [facility] Last Admin: 06/02/17 05:00 Dose: 975 mg Heparin Sodium (Porcine) (Heparin) 5,000 units SC Q12 [facility] PRN Reason: Protocol Last Admin: 06/01/17 21:59 Dose: 5,000 units Hydromorphone HCl (Dilaudid) 0.5 mg IVP Q4H PRN PRN Reason: Pain, severe (8-10) Last Admin: 06/02/17 05:58 Dose: 0.5 mg Vancomycin HCl (Vancomycin 1gm) 1 gm in 250 mls @ 167 mls/hr IVPB Q12H [facility] PRN Reason: Protocol Stop: 06/07/17 22:01 Last Admin: 06/01/17 21:58 Dose: 167 mls/hr Piperacillin Sod/Tazobactam Sod (Zosyn 3.375 In Ns 100ml) 100 mls @ 200 mls/hr IVPB Q6 [facility] PRN Reason: Protocol Stop: 06/08/17 00:01 Last Admin: 06/02/17 05:00 Dose: 200 mls/hr Lactated Ringer's (Lactated Ringer's) 1,000 mls @ 100 mls/hr IV .Q10H [facility] Last Admin: 06/02/17 06:53 Dose: Not Given Mupirocin (Bactroban Ointment) 1 gm NS BID [facility] Stop: 06/06/17 10:01 Last Admin: 06/01/17 23:47 Dose: 1 applic Ondansetron HCl (Zofran Inj) 4 mg IVP Q4H PRN PRN Reason: Nausea/Vomiting Oxycodone/Acetaminophen (Percocet 5/325 Mg Tab) 1 tab PO Q6H PRN PRN Reason: Pain, moderate (4-7) Stop: 06/03/17 12:01 Last Admin: 06/01/17 23:10 Dose: 1 tab Pantoprazole Sodium (Protonix Inj) 40 mg IVP DAILY [facility] Last Admin: 06/01/17 09:11 Dose: 40 mg Polyethylene Glycol (Miralax) 17 gm PO BID [facility] Last Admin: 06/01/17 18:01 Dose: 17 gm - Labs Labs: 06/02/17 07:00 06/01/17 09:00 PT 16.2 SECONDS (9.4-12.5) H 05/30/17 07:00 INR 1.40 (0.93-1.08) H 05/30/17 07:00 APTT 28.8 Seconds (25.1-36.5) 05/30/17 07:00 - Constitutional Appears: Non-toxic, No Acute Distress - Head Exam Head Exam: ATRAUMATIC, NORMAL INSPECTION, NORMOCEPHALIC - Eye Exam Eye Exam: EOMI, Normal appearance - ENT Exam ENT Exam: Mucous Membranes Moist - Respiratory Exam Respiratory Exam: NORMAL BREATHING PATTERN. absent: Accessory Muscle Use, Respiratory Distress - GI/Abdominal Exam GI & Abdominal Exam: Soft. absent: Distended, Guarding, Rigid, Tenderness - Extremities Exam Additional comments: Right groin I&D site with gia x4 in place. Drainage present. - Back Exam Additional comments: Right back IR drain in place; bag replaced and no output. - Neurological Exam Neurological Exam: Alert, Awake, Oriented x3 - Skin Skin Exam: Intact, Normal Color, Warm Assessment and Plan - Assessment and Plan (Free Text) Assessment: 41yo F s/p R groin I&D of large loculated abscess on 05/31/17. POD2 Plan: - Pain management - PICC line for probable long-term abx - Abx as per ID - f/u wound culture - Encourage OOBTC Further recs as per Dr. Rajinder Castle PGY1 surgery pager: [phone]
[2017-06-02] MEDS: Oxycodone/Acetaminophen 5/325 mg Tab PO PRN ×3 (08:05→19:39)
[2017-06-02] MEDS ORDERED: Potassium Chloride 20 mEq ER Tab PO ONE (08:54)
--- NOTE | 2017-06-02 09:36 | CT ---
PROCEDURE: CT Chest, Abdomen and Pelvis without intravenous contrast HISTORY: assess abscesses post-op COMPARISON: 05/29/2017 TECHNIQUE: Radiation dose: Total exam DLP = 468 mGy-cm. This CT exam was performed using one or more of the following dose reduction techniques: Automated exposure control, adjustment of the mA and/or kV according to patient size, and/or use of iterative reconstruction technique. FINDINGS: CT CHEST WITHOUT CONTRAST: LUNGS: Minimal bibasilar consolidation adjacent to small pleural effusions. MEDIASTINUM: Unremarkable. Normal caliber aorta and pulmonary arterial trunk. Normal size heart. LYMPH NODES: Unremarkable. PLEURA: Minimal cbe pericardial effusion. Small pleural effusions BONES: Unremarkable. OTHER FINDINGS: None. CT ABDOMEN AND PELVIS: LIVER: Unremarkable. No gross lesion or ductal dilatation. GALLBLADDER AND BILE DUCTS: Unremarkable. PANCREAS: Unremarkable. No gross lesion or ductal dilatation. SPLEEN: Unremarkable. ADRENALS: Unremarkable. No mass. KIDNEYS AND URETERS: Unremarkable. No hydronephrosis. No solid mass. VASCULATURE: Unremarkable. No aortic aneurysm. BOWEL: Unremarkable. No obstruction. No gross mural thickening. APPENDIX: Normal appendix. PERITONEUM: There is a drainage catheter in the right flank adjacent to the right kidney with significant decrease in the size of the fluid collection. A small residual collection is still seen. A small 2 cm fluid collection is still seen in the right psoas muscle. This is less clearly defined than on the previous study. There is also a persistent fluid collection in the right piriformis muscle measuring 2.6 x 3.6 cm. This is unchanged. The left-sided piriformis collection has resolved. LYMPH NODES: Unremarkable. No enlarged lymph nodes. BLADDER: Unremarkable. REPRODUCTIVE: Unremarkable. BONES: No acute fracture. OTHER FINDINGS: None. IMPRESSION: Decreased size of fluid collection in the right flank with drainage catheter in place. Persistent fluid collections in the right psoas muscle and right piriformis muscle
[2017-06-02] MEDS: Vancomycin 1gm in NS 250ml 1 GM/250 ML BAG IVPB SCH ×2 (10:14→21:28)
[2017-06-02] MEDS: POLYETHYLENE GLYCOL 3350 17 GM/Dose PACKET PO SCH ×2 (10:16→17:55)
--- NOTE | 2017-06-02 17:41 | CP.PCM.PN ---
Subjective - Date & Time of Evaluation Date of Evaluation: 06/02/17 Time of Evaluation: 12:20 - Subjective Subjective: Comfortable in bed, no fevers overnight, still with pain in the right groin area. Objective - Vital Signs/Intake and Output Vital Signs (last 24 hours): Temp Pulse Resp BP Pulse Ox 97.7 F 72 20 116/70 98 06/02/17 07:30 06/02/17 07:30 06/02/17 07:30 06/02/17 07:30 06/02/17 07:30 Intake and Output: 06/02/17 06/02/17 06:59 18:59 Intake Total 2400 Output Total 5 Balance 2395 - Medications Medications: Current Medications Acetaminophen (Tylenol 325mg Tab) 650 mg PO Q4H PRN PRN Reason: Fever >100.5 F Last Admin: 05/29/17 23:25 Dose: 650 mg Acetaminophen (Tylenol 325mg Tab) 975 mg PO Q8H [facility] Last Admin: 06/02/17 05:00 Dose: 975 mg Heparin Sodium (Porcine) (Heparin) 5,000 units SC Q12 [facility] PRN Reason: Protocol Last Admin: 06/02/17 10:25 Dose: Not Given Hydromorphone HCl (Dilaudid) 0.5 mg IVP Q4H PRN PRN Reason: Pain, severe (8-10) Last Admin: 06/02/17 10:13 Dose: 0.5 mg Vancomycin HCl (Vancomycin 1gm) 1 gm in 250 mls @ 167 mls/hr IVPB Q12H [facility] PRN Reason: Protocol Stop: 06/07/17 22:01 Last Admin: 06/02/17 10:14 Dose: 167 mls/hr Piperacillin Sod/Tazobactam Sod (Zosyn 3.375 In Ns 100ml) 100 mls @ 200 mls/hr IVPB Q6 [facility] PRN Reason: Protocol Stop: 06/08/17 00:01 Last Admin: 06/02/17 05:00 Dose: 200 mls/hr Lactated Ringer's (Lactated Ringer's) 1,000 mls @ 100 mls/hr IV .Q10H [facility] Last Admin: 06/02/17 06:53 Dose: Not Given Mupirocin (Bactroban Ointment) 1 gm NS BID [facility] Stop: 06/06/17 10:01 Last Admin: 06/01/17 23:47 Dose: 1 applic Ondansetron HCl (Zofran Inj) 4 mg IVP Q4H PRN PRN Reason: Nausea/Vomiting Oxycodone/Acetaminophen (Percocet 5/325 Mg Tab) 1 tab PO Q6H PRN PRN Reason: Pain, moderate (4-7) Stop: 06/03/17 12:01 Last Admin: 06/02/17 08:05 Dose: 1 tab Pantoprazole Sodium (Protonix Inj) 40 mg IVP DAILY [facility] Last Admin: 06/02/17 10:13 Dose: 40 mg Polyethylene Glycol (Miralax) 17 gm PO BID [facility] Last Admin: 06/02/17 10:16 Dose: 17 gm - Labs Labs: 06/02/17 07:00 06/02/17 07:00 PT 16.2 SECONDS (9.4-12.5) H 05/30/17 07:00 INR 1.40 (0.93-1.08) H 05/30/17 07:00 APTT 28.8 Seconds (25.1-36.5) 05/30/17 07:00 - Constitutional Appears: Chronically Ill - Head Exam Head Exam: NORMAL INSPECTION - ENT Exam ENT Exam: Mucous Membranes Moist - Neck Exam Neck Exam: absent: Meningismus - Respiratory Exam Respiratory Exam: Decreased Breath Sounds - Cardiovascular Exam Cardiovascular Exam: +S1, +S2 - GI/Abdominal Exam GI & Abdominal Exam: Soft. absent: Tenderness Assessment and Plan - Assessment and Plan (Free Text) Plan: Assessment right inguinal mass with necrotic masses also found in the iliacus and ilipsoas muscles, S/P I and D and evacuation of pus growing MRSA, R/O fungal, mycobacterial infection as well Hepatitis C polysubstance abuse S/P breast augmentation surgery Plan continue Vancomycin day 4; follow up tissue pathology, fungal and AFB cultures will continue to monitor clinically Hepatitis C should be addressed as an outpatient
--- NOTE | 2017-06-02 17:47 | CP.PCM.PN ---
<Yaima Francisco - Last Filed: 06/02/17 17:39> Subjective - Date & Time of Evaluation Date of Evaluation: 06/02/17 Time of Evaluation: 07:30 - Subjective Subjective: Yaima Nolan PGY1 IM Progress Note Patient was seen and examined at bedside. Patient is still complaining of pain and soreness in her leg, groin, and back. Pain is significantly improved compared to when she first came in, but reports that the pain regimen she is getting right now is "nothing". She denies any fevers/chills, n/v/d, chest pain or shortness of breath. Objective - Vital Signs/Intake and Output Vital Signs (last 24 hours): Temp Pulse Resp BP Pulse Ox 98.1 F 92 H 20 112/68 99 06/02/17 16:00 06/02/17 16:00 06/02/17 16:00 06/02/17 16:00 06/02/17 16:00 Intake and Output: 06/02/17 06/02/17 06:59 18:59 Intake Total 3260 Output Total 5 Balance 3255 - Medications Medications: Current Medications Acetaminophen (Tylenol 325mg Tab) 650 mg PO Q4H PRN PRN Reason: Fever >100.5 F Last Admin: 05/29/17 23:25 Dose: 650 mg Acetaminophen (Tylenol 325mg Tab) 975 mg PO Q8H [facility] Last Admin: 06/02/17 13:11 Dose: Not Given Ferrous Sulfate (Feosol) 324 mg PO TID [facility] Heparin Sodium (Porcine) (Heparin) 5,000 units SC Q12 [facility] PRN Reason: Protocol Last Admin: 06/02/17 10:25 Dose: Not Given Hydromorphone HCl (Dilaudid) 0.5 mg IVP Q4H PRN PRN Reason: Pain, severe (8-10) Last Admin: 06/02/17 14:07 Dose: 0.5 mg Vancomycin HCl (Vancomycin 1gm) 1 gm in 250 mls @ 167 mls/hr IVPB Q12H [facility] PRN Reason: Protocol Stop: 06/07/17 22:01 Last Admin: 06/02/17 10:14 Dose: 167 mls/hr Piperacillin Sod/Tazobactam Sod (Zosyn 3.375 In Ns 100ml) 100 mls @ 200 mls/hr IVPB Q6 [facility] PRN Reason: Protocol Stop: 06/08/17 00:01 Last Admin: 06/02/17 13:11 Dose: 200 mls/hr Lactated Ringer's (Lactated Ringer's) 1,000 mls @ 100 mls/hr IV .Q10H [facility] Last Admin: 06/02/17 06:53 Dose: Not Given Mupirocin (Bactroban Ointment) 1 gm NS BID [facility] Stop: 06/06/17 10:01 Last Admin: 06/01/17 23:47 Dose: 1 applic Ondansetron HCl (Zofran Inj) 4 mg IVP Q4H PRN PRN Reason: Nausea/Vomiting Oxycodone/Acetaminophen (Percocet 5/325 Mg Tab) 1 tab PO Q6H PRN PRN Reason: Pain, moderate (4-7) Stop: 06/03/17 12:01 Last Admin: 06/02/17 13:10 Dose: 1 tab Pantoprazole Sodium (Protonix Inj) 40 mg IVP DAILY [facility] Last Admin: 06/02/17 10:13 Dose: 40 mg Polyethylene Glycol (Miralax) 17 gm PO BID [facility] Last Admin: 06/02/17 10:16 Dose: 17 gm - Labs Labs: 06/02/17 07:00 06/02/17 07:00 PT 16.2 SECONDS (9.4-12.5) H 05/30/17 07:00 INR 1.40 (0.93-1.08) H 05/30/17 07:00 APTT 28.8 Seconds (25.1-36.5) 05/30/17 07:00 - Constitutional Appears: Non-toxic, No Acute Distress - Head Exam Head Exam: ATRAUMATIC, NORMOCEPHALIC - Eye Exam Eye Exam: EOMI, Normal appearance, PERRL - ENT Exam ENT Exam: Mucous Membranes Moist - Respiratory Exam Respiratory Exam: Clear to Ausculation Bilateral, NORMAL BREATHING PATTERN - Cardiovascular Exam Cardiovascular Exam: RRR, +S1, +S2 - GI/Abdominal Exam GI & Abdominal Exam: Soft, Normal Bowel Sounds. absent: Tenderness - Extremities Exam Additional comments: Dressing in place over right groin, actively draining serosanguinous and brown fluid. Marked atrophy in bilateral legs - Back Exam Additional comments: Dressing in place in right back, with bag with scant amount of yellow fluid - Neurological Exam Neurological Exam: Alert, Awake, Oriented x3 Neuro motor strength exam: Left Upper Extremity: 5, Right Upper Extremity: 5, Left Lower Extremity: 5, Right Lower Extremity: 5 - Psychiatric Exam Psychiatric exam: Agitated, Anxious, Depressed - Skin Skin Exam: Dry, Intact, Normal Color Assessment and Plan - Assessment and Plan (Free Text) Assessment: 41 year old female with a past medical history significant for Hepatitis C and polysubstance abuse who presents with a constant sharp pain in the right buttock radiating to the right leg that started suddenly 8 weeks ago with no inciting event with associated right inguinal mass. Patient being treated for sepsis due to multiple loculated abscesses Plan: 1. Sepsis 2/2 multiple loculated abscesses - s/p 100cc purulent fluid aspiration of abscess in right retroperitoneum extending from liver to iliac crest by Dr. Alvarez (IR) - s/p R groin I&D and aspiration of 600cc of purulent fluid from loculated abscess by Dr. Calvillo (Surgery) - PICC line placed today for long term care phlebotomist antibiotic administration - Repeat CT C/A/P done today; shows decrease in size of fluid collection in right flank, though still with small residual collection seen. Small 2cm fluid collection still seen in right psoas. Persistent, unchanged fluid collection in right piriformis muscle (2.6x3.6cm). Left-sided piriformis collection resolved. - Will discuss with IR for possibility of further intervention - Leukocytosis improving - Abscess fluid growing MRSA; fungal and mycobacterial cultures pending; Anaerobic culture negative - Continue IV Vancomycin and IV Zosyn per ID - Tylenol PRN for fever; Zofran PRN for N/V - Pain regimen - Quantiferon gold pending; RPR negative - ID consulted, all recommendations appreciated 2. Anemia - H&H downdrending slightly with continued hydration; no signs of active bleeding; no indicate to transfuse at this time - Type and screen done - Iron studies show low serum iron, TIBC, and %sat, but elevated ferritin. Likely iron deficiency considering poor nutritional intake, with elevated ferritin 2/2 infection - Start PO Iron - Peripheral smear pending - Monitor with daily CBC's 3. Thrombocytosis - Likely reactive; improving - Peripheral smear pending - DVT Prophylaxis 4. History of Hepatitis C - Hepatitis panel shows reactive for hepatitis C - HIV screen negative - ID consulted, all recommendations appreciated; recommend outpatient follow up GI Prophylaxis: Protonix DVT Prophylaxis: Heparin and SCD's Patient was seen, examined and discussed with attending, Dr. Dangelo <Glenda Dangelo B - Last Filed: 06/03/17 16:08> Objective - Vital Signs/Intake and Output Vital Signs (last 24 hours): Temp Pulse Resp BP Pulse Ox 97.4 F L 86 20 111/79 98 06/03/17 06:00 06/03/17 06:00 06/03/17 06:00 06/03/17 06:00 06/03/17 06:00 Intake and Output: 06/03/17 06/03/17 06:59 18:59 Intake Total 840 Balance 840 - Medications Medications: Current Medications Acetaminophen (Tylenol 325mg Tab) 650 mg PO Q4H PRN PRN Reason: Fever >100.5 F Last Admin: 06/02/17 22:55 Dose: 650 mg Ferrous Sulfate (Feosol) 324 mg PO TID [facility] Last Admin: 06/03/17 15:24 Dose: 324 mg Heparin Sodium (Porcine) (Heparin) 5,000 units SC Q12 [facility] PRN Reason: Protocol Last Admin: 06/03/17 10:30 Dose: Not Given Hydromorphone HCl (Dilaudid) 0.5 mg IVP Q4H PRN PRN Reason: Pain, severe (8-10) Last Admin: 06/03/17 14:17 Dose: 0.5 mg Vancomycin HCl (Vancomycin 1gm) 1 gm in 250 mls @ 167 mls/hr IVPB Q12H [facility] PRN Reason: Protocol Stop: 06/07/17 22:01 Last Admin: 06/03/17 10:13 Dose: 167 mls/hr Lactated Ringer's (Lactated Ringer's) 1,000 mls @ 150 mls/hr IV .Q6H40M [facility] Last Admin: 06/03/17 10:14 Dose: 150 mls/hr Mupirocin (Bactroban Ointment) 1 gm NS BID [facility] Stop: 06/06/17 10:01 Last Admin: 06/03/17 10:12 Dose: 1 applic Ondansetron HCl (Zofran Inj) 4 mg IVP Q4H PRN PRN Reason: Nausea/Vomiting Oxycodone/Acetaminophen (Percocet 10/325 Mg Tab) 1 tab PO Q6H PRN PRN Reason: Pain, moderate (4-7) Last Admin: 06/03/17 15:23 Dose: 1 tab Pantoprazole Sodium (Protonix Ec Tab) 40 mg PO ACB [facility] Polyethylene Glycol (Miralax) 17 gm PO DAILY [facility] - Labs Labs: 06/03/17 06:30 06/03/17 06:30 PT 16.2 SECONDS (9.4-12.5) H 05/30/17 07:00 INR 1.40 (0.93-1.08) H 05/30/17 07:00 APTT 28.8 Seconds (25.1-36.5) 05/30/17 07:00 Attending/Attestation - Attestation I have personally seen and examined this patient.: Yes I have fully participated in the care of the patient.: Yes I have reviewed all pertinent clinical information, including history, physical exam and plan: Yes Notes (Text): I have seen and examined the patient at bedside. Agree with the progress note with the following additions/ exceptions: Briefly this is 41 year old female with history of Hep C and polysubstance abuse who was admitted for evaluation of right buttock pain which was radiating to right leg with associated right inguinal mass which she noticed [address] chest abdomen and pelvis showed multiple necrotic masses in right thigh, pelvic and subhepatic area. She underwent CT-guided aspiration of right subhepatic abscess and now has drain in place. She also had I&D of right thigh abscess and 600 cc of pus was drained. Wound culture grew MRSA. Repeat CT pending at this time. Plan for possible rehab. HIV negative.Continue iron for anemia. Upon discharge patient will follow up with PMD of choice. Dr Glenda Dangelo
--- NOTE | 2017-06-02 17:48 | CARD ---
APPROVED REPORT EXAM: Two-dimensional and M-mode echocardiogram with Doppler and color Doppler. INDICATION Infection:Rule out subacute bacterial endocarditis 2D DIMENSIONS Left Atrium (2D)3.7 (1.6-4.0cm)IVSd1.0 (0.7-1.1cm) LVDd4.1 (3.9-5.9cm)PWd1.2 (0.7-1.1cm) LVDs2.9 (2.5-4.0cm)FS (%) 29.7 % LVEF (%)57.3 (>50%) M-Mode DIMENSIONS Aortic Root2.30 (2.2-3.7cm)Aortic Cusp Exc.1.50 (1.5-2.0cm) Aortic Valve AoV Peak Hhbouums468.0cm/Deja Peak GR.8mmHg Mitral Valve MV E Gpavsswq463.0cm/sMV A Nvcmlrth07.4cm/sE/A ratio1.2 TDI E/Lateral E'0.0E/Medial E'0.0 Tricuspid Valve TR Peak [id number]/sRAP [id number] Peak Gr.14mmHg [id number] LEFT VENTRICLE The left ventricle is normal size. There is borderline to mild concentric left ventricular hypertrophy. The left ventricular function is normal.EF-55-60% There is normal LV segmental wall motion. The left ventricular diastolic function is normal. No left ventricle thrombus noted on this study. There is no ventricular septal defect visualized. There is no left ventricular aneurysm. There is no mass noted in the left ventricle. RIGHT VENTRICLE The right ventricle is normal size. There is normal right ventricular wall thickness. The right ventricular systolic function is normal. ATRIA The left atrium size is normal. The right atrium size is normal. The interatrial septum is intact with no evidence for an atrial septal defect. AORTIC VALVE The aortic valve is normal in structure. No aortic regurgitation is present. There is no aortic valvular stenosis. There is no aortic valvular vegetation. MITRAL VALVE The mitral valve is thickened but opens well. Mitral regurgitation is trace. There is no mitral valve stenosis. There is no evidence of mitral valve prolapse. TRICUSPID VALVE The tricuspid valve is normal in structure. There is trace tricuspid regurgitation.RVSP-24 mmof hg. There is no tricuspid valve stenosis. There is no tricuspid valve prolapse or vegetation. PULMONIC VALVE The pulmonic valve is borderline thickened. There is trace pulmonic valvular regurgitation. There is no pulmonic valvular stenosis. GREAT VESSELS The aortic root is normal in size. The ascending aorta is normal in size. The pulmonary artery is normal. The IVC is normal in size and collapses >50% with inspiration. PERICARDIAL EFFUSION There is no pleural effusion. There is no pericardial effusion. <Conclusion> Normal Chamber Size. EF-55-60% Trace MR/TR, RVSP-24 mmof Hg. No Obvious Vegetation noted.
[2017-06-03] MEDS: HYDROmorphone 0.5 mg/0.5 ml ISec IVP PRN ×5 (02:02→20:41)
[2017-06-03] MEDS: Oxycodone/Acetaminophen 5/325 mg Tab PO PRN ×2 (03:14→08:17)
[2017-06-03 06:39] LABS: BASO # 0.02 K/mm3 (0.0-2.0); BASO % 0.2 % (0.0-3.0); EOS # 0.2 (0.0-0.7); EOS % 1.8 % (1.5-5.0); GRAN # 9.67 (1.4-6.5); GRAN % 73.8 % (50.0-68.0); LYMPH # 2.3 (1.2-3.4); LYMPH % 17.7 % (22.0-35.0); MEAN CELL VOLUME 83.1 fl (80.0-105.0); MEAN CORPUSCULAR HEMOGLOBIN 26.1 pg (25.0-35.0); MEAN CORPUSCULAR HGB CONC 31.4 g/dl (31.0-37.0); MEAN PLATELET VOLUME 8.6 fl (7.0-11.0); MONO # 0.9 (0.1-0.6); MONO % 6.5 % (1.0-6.0); RBC 2.95 10^6/uL (3.5-6.1); RED CELL DISTRIBUTION WIDTH 15.9 % (11.5-14.5); WHITE BLOOD COUNT 13.1 10^3/ul (4.5-11.0)
[2017-06-03 06:53] LABS: ALB/GLOB RATIO 0.5 (1.1-1.8); ALBUMIN 1.9 g/dL (3.0-4.8); CALCIUM 8.4 mg/dL (8.4-10.5)
[2017-06-03 07:00] LABS: HEMOGLOBIN 7.7 g/dL (12.0-16.0)
[2017-06-03] MEDS: POLYETHYLENE GLYCOL 3350 17 GM/Dose PACKET PO SCH ×2 (10:13→10:30)
[2017-06-03] MEDS: Vancomycin 1gm in NS 250ml 1 GM/250 ML BAG IVPB SCH ×2 (10:13→22:32)
[2017-06-03] MEDS: Lactated Ringer's 1,000 ML IV SCH (10:14)
--- NOTE | 2017-06-03 10:21 | CP.PCM.PN ---
Subjective - Date & Time of Evaluation Date of Evaluation: 06/03/17 Time of Evaluation: 07:00 - Subjective Subjective: Surgery Progress note. Dr. Calvillo Pt seen and examined at bedside. No acute events overnight. No New complaints. Pain controlled but continues to ask for increased coverage; patient is noted to be comfortable watching TV, but states that she is having increased pain when surgical team is evaluating the patient. No new complaints. No N/v/D. Tolerating diet. No Abd pain. Right groin dressing with gia x4 in place, with purulent discharge. Dressing changed this morning. Objective - Vital Signs/Intake and Output Vital Signs (last 24 hours): Temp Pulse Resp BP Pulse Ox 97.4 F L 86 20 111/79 98 06/03/17 06:00 06/03/17 06:00 06/03/17 06:00 06/03/17 06:00 06/03/17 06:00 Intake and Output: 06/03/17 06/03/17 06:59 18:59 Intake Total 840 Balance 840 - Medications Medications: Current Medications Acetaminophen (Tylenol 325mg Tab) 650 mg PO Q4H PRN PRN Reason: Fever >100.5 F Last Admin: 06/02/17 22:55 Dose: 650 mg Acetaminophen (Tylenol 325mg Tab) 975 mg PO Q8H [facility] Last Admin: 06/03/17 04:30 Dose: Not Given Ferrous Sulfate (Feosol) 324 mg PO TID [facility] Last Admin: 06/02/17 17:55 Dose: 324 mg Heparin Sodium (Porcine) (Heparin) 5,000 units SC Q12 [facility] PRN Reason: Protocol Last Admin: 06/02/17 21:37 Dose: 5,000 units Hydromorphone HCl (Dilaudid) 0.5 mg IVP Q4H PRN PRN Reason: Pain, severe (8-10) Last Admin: 06/03/17 05:50 Dose: 0.5 mg Vancomycin HCl (Vancomycin 1gm) 1 gm in 250 mls @ 167 mls/hr IVPB Q12H [facility] PRN Reason: Protocol Stop: 06/07/17 22:01 Last Admin: 06/02/17 21:28 Dose: 167 mls/hr Lactated Ringer's (Lactated Ringer's) 1,000 mls @ 150 mls/hr IV .Q6H40M [facility] Mupirocin (Bactroban Ointment) 1 gm NS BID [facility] Stop: 06/06/17 10:01 Last Admin: 06/02/17 18:30 Dose: 1 applic Ondansetron HCl (Zofran Inj) 4 mg IVP Q4H PRN PRN Reason: Nausea/Vomiting Oxycodone/Acetaminophen (Percocet 5/325 Mg Tab) 1 tab PO Q6H PRN PRN Reason: Pain, moderate (4-7) Stop: 06/03/17 12:01 Last Admin: 06/03/17 08:17 Dose: 1 tab Pantoprazole Sodium (Protonix Inj) 40 mg IVP DAILY [facility] Last Admin: 06/02/17 10:13 Dose: 40 mg Polyethylene Glycol (Miralax) 17 gm PO BID [facility] Last Admin: 06/02/17 17:55 Dose: 17 gm - Labs Labs: 06/03/17 06:30 06/03/17 06:30 PT 16.2 SECONDS (9.4-12.5) H 05/30/17 07:00 INR 1.40 (0.93-1.08) H 05/30/17 07:00 APTT 28.8 Seconds (25.1-36.5) 05/30/17 07:00 - Constitutional Appears: Non-toxic, No Acute Distress, Older Than Stated Age - Head Exam Head Exam: ATRAUMATIC, NORMAL INSPECTION, NORMOCEPHALIC - Eye Exam Eye Exam: EOMI - ENT Exam ENT Exam: Mucous Membranes Moist - Respiratory Exam Respiratory Exam: NORMAL BREATHING PATTERN. absent: Accessory Muscle Use, Respiratory Distress - GI/Abdominal Exam GI & Abdominal Exam: Soft. absent: Distended, Firm, Guarding, Rigid, Tenderness - Extremities Exam Extremities Exam: absent: Calf Tenderness Additional comments: right groin with gia x4 in place. purulent, serrous drainage noted. Dressings changed. - Neurological Exam Neurological Exam: Alert, Awake, Oriented x3 Assessment and Plan - Assessment and Plan (Free Text) Assessment: 41yo F s/p R groin I&D of large loculated abscess on 05/31/17. POD3 Plan: - Pain management - Possible IR-guided drainage/aspiration of pelvic collection by sciatic notch and psoas muscle collection today - Abx as per ID - f/u wound culture - Encourage OOBTC Further recs as per Dr. Rajinder Castle PGY1 surgery pager: [phone]
[2017-06-03 11:32] LABS: MAGNESIUM 1.5 mg/dL (1.7-2.2)
[2017-06-03] MEDS ORDERED: Magnesium Sulfate 2 GM in Sodium Chloride 0.9% 100 ML IVPB ONE (12:47)
[2017-06-03] MEDS ORDERED: Potassium Chloride 20 mEq ER Tab PO ONE (13:02)
[2017-06-03] MEDS: Oxycodone/Acetaminophen 10/325 mg Tab PO PRN ×2 (15:23→23:39)
[2017-06-03] MEDS ORDERED: Midazolam 2 MG/2 ML VIAL ONE (16:32)
--- NOTE | 2017-06-03 17:10 | CP.PCM.PN ---
<NolanDoroteomarivelgorge - Last Filed: 06/03/17 17:06> Subjective - Date & Time of Evaluation Date of Evaluation: 06/03/17 Time of Evaluation: 07:30 - Subjective Subjective: Yaima Francisco PGY1 IM Progress Note Patient was seen and examined at bedside. Patient is still reports pain and soreness in her leg, groin, and back. Pain is unchanged since yesterday, though significantly improved since admission. Patient inquiring about picc line antibiotic administration. She denies any fevers/chills, n/v/d, chest pain or shortness of breath. Objective - Vital Signs/Intake and Output Vital Signs (last 24 hours): Temp Pulse Resp BP Pulse Ox 97.4 F L 86 20 111/79 98 06/03/17 06:00 06/03/17 06:00 06/03/17 06:00 06/03/17 06:00 06/03/17 06:00 Intake and Output: 06/03/17 06/03/17 06:59 18:59 Intake Total 840 Balance 840 - Medications Medications: Current Medications Acetaminophen (Tylenol 325mg Tab) 650 mg PO Q4H PRN PRN Reason: Fever >100.5 F Last Admin: 06/02/17 22:55 Dose: 650 mg Ferrous Sulfate (Feosol) 324 mg PO TID [facility] Last Admin: 06/03/17 15:24 Dose: 324 mg Heparin Sodium (Porcine) (Heparin) 5,000 units SC Q12 [facility] PRN Reason: Protocol Last Admin: 06/03/17 10:30 Dose: Not Given Hydromorphone HCl (Dilaudid) 0.5 mg IVP Q4H PRN PRN Reason: Pain, severe (8-10) Last Admin: 06/03/17 14:17 Dose: 0.5 mg Vancomycin HCl (Vancomycin 1gm) 1 gm in 250 mls @ 167 mls/hr IVPB Q12H [facility] PRN Reason: Protocol Stop: 06/07/17 22:01 Last Admin: 06/03/17 10:13 Dose: 167 mls/hr Lactated Ringer's (Lactated Ringer's) 1,000 mls @ 150 mls/hr IV .Q6H40M [facility] Last Admin: 06/03/17 10:14 Dose: 150 mls/hr Mupirocin (Bactroban Ointment) 1 gm NS BID [facility] Stop: 06/06/17 10:01 Last Admin: 06/03/17 10:12 Dose: 1 applic Ondansetron HCl (Zofran Inj) 4 mg IVP Q4H PRN PRN Reason: Nausea/Vomiting Oxycodone/Acetaminophen (Percocet 10/325 Mg Tab) 1 tab PO Q6H PRN PRN Reason: Pain, moderate (4-7) Last Admin: 06/03/17 15:23 Dose: 1 tab Pantoprazole Sodium (Protonix Ec Tab) 40 mg PO ACB [facility] Polyethylene Glycol (Miralax) 17 gm PO DAILY [facility] - Labs Labs: 06/03/17 06:30 06/03/17 06:30 PT 16.2 SECONDS (9.4-12.5) H 05/30/17 07:00 INR 1.40 (0.93-1.08) H 05/30/17 07:00 APTT 28.8 Seconds (25.1-36.5) 05/30/17 07:00 - Constitutional Appears: Non-toxic, No Acute Distress - Head Exam Head Exam: ATRAUMATIC, NORMOCEPHALIC - Eye Exam Eye Exam: EOMI, Normal appearance, PERRL - ENT Exam ENT Exam: Mucous Membranes Moist - Respiratory Exam Respiratory Exam: Clear to Ausculation Bilateral, NORMAL BREATHING PATTERN - Cardiovascular Exam Cardiovascular Exam: RRR, +S1, +S2 - GI/Abdominal Exam GI & Abdominal Exam: Soft, Normal Bowel Sounds. absent: Tenderness - Extremities Exam Additional comments: Dressing in place over right groin, recently changed, appears clean, dry and intact. Marked atrophy in bilateral legs - Back Exam Additional comments: Dressing in place in right back, with bag with small amount of purulent fluid - Neurological Exam Neurological Exam: Alert, Awake, Oriented x3 - Psychiatric Exam Psychiatric exam: Depressed, Normal Affect - Skin Skin Exam: Dry, Intact, Normal Color Assessment and Plan - Assessment and Plan (Free Text) Assessment: 41 year old female with a past medical history significant for Hepatitis C and polysubstance abuse who presents with a constant sharp pain in the right buttock radiating to the right leg that started suddenly 8 weeks ago with no inciting event with associated right inguinal mass. Patient being treated for sepsis due to multiple loculated abscesses Plan: 1. Sepsis 2/2 multiple loculated abscesses - No longer meets SIRS criteria - s/p 100cc purulent fluid aspiration of abscess in right retroperitoneum extending from liver to iliac crest by Dr. Alvarez (IR) - s/p R groin I&D and aspiration of 600cc of purulent fluid from loculated abscess by Dr. Calvillo (Surgery) - Patient scheduled for repeat IR procedure with Dr. Alvarez for further drainage of remaining fluid collections - Persistent leukocytosis; no fever, tachycardia, tachypnea, or hypotension - Abscess fluid growing MRSA; fungal and mycobacterial cultures pending; Anaerobic culture negative - Wound culture also growing gram positive cocci - Continue IV Vancomycin and IV Zosyn per ID - Tylenol PRN for fever; Zofran PRN for N/V - Pain regimen - Quantiferon gold pending; RPR negative - ID consulted, all recommendations appreciated 2. Anemia - H&H stable since yesterday; no signs of active bleeding; no indicate to transfuse at this time - Type and screen done - Continue PO Iron - Peripheral smear pending - Monitor with daily CBC's 3. ASAD - Patient has moderate elevation in Cr over the weekend, trended up until yesterday, now trending back down - Patient already getting IVF LR@75cc/hr; will increase to 150cc/hr - Urine studies ordered yesterday; pending - Continue to monitor with daily CMP 4. Thrombocytosis - Likely reactive; improving - Peripheral smear pending - DVT Prophylaxis 5. History of Hepatitis C; known and untreated - Hepatitis panel shows reactive for hepatitis C - HIV screen negative - ID consulted, all recommendations appreciated; recommend outpatient follow up 6. Trichomonas infection - Patient has trichomonas on UA - Ordered Flagyl 2g once for treatement GI Prophylaxis: Protonix DVT Prophylaxis: Heparin and SCD's Patient was seen, examined and discussed with attending, Dr. Dangelo <Glenda Dangelo - Last Filed: 06/03/17 17:44> Objective - Vital Signs/Intake and Output Vital Signs (last 24 hours): Temp Pulse Resp BP Pulse Ox 97.4 F L 86 20 111/79 98 06/03/17 06:00 06/03/17 06:00 06/03/17 06:00 06/03/17 06:00 06/03/17 06:00 Intake and Output: 06/03/17 06/03/17 06:59 18:59 Intake Total 840 Balance 840 - Medications Medications: Current Medications Acetaminophen (Tylenol 325mg Tab) 650 mg PO Q4H PRN PRN Reason: Fever >100.5 F Last Admin: 06/02/17 22:55 Dose: 650 mg Ferrous Sulfate (Feosol) 324 mg PO TID [facility] Last Admin: 06/03/17 15:24 Dose: 324 mg Heparin Sodium (Porcine) (Heparin) 5,000 units SC Q12 [facility] PRN Reason: Protocol Last Admin: 06/03/17 10:30 Dose: Not Given Hydromorphone HCl (Dilaudid) 0.5 mg IVP Q4H PRN PRN Reason: Pain, severe (8-10) Last Admin: 06/03/17 14:17 Dose: 0.5 mg Vancomycin HCl (Vancomycin 1gm) 1 gm in 250 mls @ 167 mls/hr IVPB Q12H [facility] PRN Reason: Protocol Stop: 06/07/17 22:01 Last Admin: 06/03/17 10:13 Dose: 167 mls/hr Lactated Ringer's (Lactated Ringer's) 1,000 mls @ 150 mls/hr IV .Q6H40M [facility] Last Admin: 06/03/17 10:14 Dose: 150 mls/hr Mupirocin (Bactroban Ointment) 1 gm NS BID [facility] Stop: 06/06/17 10:01 Last Admin: 06/03/17 10:12 Dose: 1 applic Ondansetron HCl (Zofran Inj) 4 mg IVP Q4H PRN PRN Reason: Nausea/Vomiting Oxycodone/Acetaminophen (Percocet 10/325 Mg Tab) 1 tab PO Q6H PRN PRN Reason: Pain, moderate (4-7) Last Admin: 06/03/17 15:23 Dose: 1 tab Pantoprazole Sodium (Protonix Ec Tab) 40 mg PO ACB [facility] Polyethylene Glycol (Miralax) 17 gm PO DAILY [facility] - Labs Labs: 06/03/17 06:30 06/03/17 06:30 PT 16.2 SECONDS (9.4-12.5) H 05/30/17 07:00 INR 1.40 (0.93-1.08) H 05/30/17 07:00 APTT 28.8 Seconds (25.1-36.5) 05/30/17 07:00 Attending/Attestation - Attestation I have personally seen and examined this patient.: Yes I have fully participated in the care of the patient.: Yes I have reviewed all pertinent clinical information, including history, physical exam and plan: Yes Notes (Text): I have seen and examined the patient at bedside. Agree with the progress note with the following additions/ exceptions: Briefly this is 41 year old female with history of Hep C (known and untreated)and polysubstance abuse who was admitted for evaluation of right buttock pain which was radiating to right leg with associated right inguinal mass which she noticed [address] chest abdomen and pelvis showed multiple necrotic masses in right thigh, pelvic and subhepatic area. She underwent CT-guided aspiration of right subhepatic abscess and now has drain in place. She also had I&D of right thigh abscess and 600 cc of pus was drained. Wound culture grew MRSA. Repeat CT revealed persistent fluid collections in right psoas and right piriformis muscle. Patient is scheduled for IR drainage today. Also has acute kidney injury. Will increase IVF. Patient is on vancomycin which is nephrotoxic. Plan for possible rehab. HIV negative. Continue iron for anemia. Patient was given flagyl for trichomas infection. Will check for gonorrha chlamydia infection as concomitant infections are common. Will also advise patient to encourage sexual partner to have the test/ treatment and Avoid intercourse until partner is treated. Upon discharge patient will follow up with PMD of choice. Dr Glenda Dangelo
--- NOTE | 2017-06-03 19:33 | CT ---
PROCEDURE: CT-guided right gluteal abscess aspiration HISTORY: Multifocal abscess. Residual 3.5 cm right gluteal abscess. Aspirate. PHYSICIAN(S): Toro Alvarez MD. TECHNIQUE: The relative risks and indications for the procedure were explained to the patient and informed consent obtained. The patient was placed in a prone position on the CT scanner and preliminary images through the pelvis performed. This revealed a 3.5 cm fluid collection in the right sciatic foramen. A right posterior approach was selected and the area prepped/draped in the usual sterile fashion. Conscious sedation and monitoring were provided throughout the procedure by nurse. An 18-gauge needle was advanced into the collection and 10 cc of purulent fluid aspirated. A specimen was sent to microbiology. The patient tolerated the procedure well. . IMPRESSION: 1. CT-guided right gluteal abscess aspiration as described above.
[2017-06-04] MEDS: Sodium Chloride 0.45% 1,000 ML IV SCH ×2 (01:11→08:09)
[2017-06-04] MEDS: HYDROmorphone 0.5 mg/0.5 ml ISec IVP PRN ×3 (01:18→11:00)
--- NOTE | 2017-06-04 01:51 | PN ---
DATE: 06/03/2017 SUBJECTIVE: The patient is in bed in no acute distress. PHYSICAL EXAMINATION: VITAL SIGNS: Temperature is 98, blood pressure is 119/70, respiratory rate of 18. HEENT: Examination of HEENT is unremarkable. NECK: Supple. LUNGS: Have decreased breath sounds. HEART: Normal S1, S2. ABDOMEN: Soft, nontender. LABORATORY EXAMINATION: Reveals a white count of 13,000, hemoglobin of 7, platelets of 517. BUN of 15, creatinine of 1.5, procalcitonin 0.22. Urinalysis is noted. Toxicology is noted. Microbiology reveals MRSA from the body fluid culture. The blood cultures are negative. Review of orders reveals the patient to be on vancomycin IV. ASSESSMENT AND PLAN: This is a 41-year-old female with right inguinal necrotic mass found in the iliac and iliopsoas muscle status post incision and drainage, evacuation which is growing methicillin-resistant Staphylococcus aureus in a patient with hepatitis C, day #5 of vancomycin. Hepatitis C should be addressed as outpatient. We will get a typing and PCR measurement. The patient had a CAT scan guided drainage of an abscess by Dr. Toro Alvarez. We will follow. Daniel Yancey MD
[2017-06-04] MEDS: Oxycodone/Acetaminophen 10/325 mg Tab PO PRN ×3 (05:06→17:51)
[2017-06-04] MEDS: Lactated Ringer's 1,000 ML IV SCH (05:09)
[2017-06-04 07:54] LABS: BASO # 0.03 K/mm3 (0.0-2.0); BASO % 0.2 % (0.0-3.0); EOS # 0.2 (0.0-0.7); EOS % 1.1 % (1.5-5.0); GRAN # 13.85 (1.4-6.5); GRAN % 79.7 % (50.0-68.0); LYMPH # 2.2 (1.2-3.4); LYMPH % 12.8 % (22.0-35.0); MEAN CELL VOLUME 83.2 fl (80.0-105.0); MEAN CORPUSCULAR HEMOGLOBIN 25.8 pg (25.0-35.0); MEAN PLATELET VOLUME 8.7 fl (7.0-11.0); MONO # 1.1 (0.1-0.6); MONO % 6.2 % (1.0-6.0); RBC 2.98 10^6/uL (3.5-6.1); RED CELL DISTRIBUTION WIDTH 16.3 % (11.5-14.5); WHITE BLOOD COUNT 17.4 10^3/ul (4.5-11.0)
[2017-06-04 08:07] LABS: ALB/GLOB RATIO 0.5 (1.1-1.8); ALT/SGPT 21 U/L (7-56); AST/SGOT 15 U/L (14-36); BLOOD UREA NITROGEN 13 mg/dL (7-21); CALCIUM 8.5 mg/dL (8.4-10.5); GFR AFRICAN-AMERICAN 43; GFR NON-AFRICAN AMERICAN 35
[2017-06-04] MEDS: Pantoprazole 40 mg EC Tab PO SCH (08:10)
[2017-06-04 08:12] LABS: HEMOGLOBIN 7.7 g/dL (12.0-16.0)
[2017-06-04] MEDS: POLYETHYLENE GLYCOL 3350 17 GM/Dose PACKET PO SCH (10:10)
--- NOTE | 2017-06-04 11:02 | CP.PCM.PN ---
Subjective - Date & Time of Evaluation Date of Evaluation: 06/04/17 Time of Evaluation: 07:25 - Subjective Subjective: Surgery Progress note. Dr. Calvillo Pt seen and examined at bedside. No acute events overnight. No F/C. Patient went for CT-guided drainage of gluteal abscess yesterday and obtained 10cc of purulent fluid. Patient reports no new complaints. Does report that she wants to be discharged home. Objective - Vital Signs/Intake and Output Vital Signs (last 24 hours): Temp Pulse Resp BP Pulse Ox 98.4 F 89 18 116/72 97 06/04/17 08:00 06/04/17 08:00 06/04/17 08:00 06/04/17 08:00 06/04/17 08:00 Intake and Output: 06/04/17 06/04/17 06:59 18:59 Intake Total 240 Balance 240 - Medications Medications: Current Medications Acetaminophen (Tylenol 325mg Tab) 650 mg PO Q4H PRN PRN Reason: Fever >100.5 F Last Admin: 06/02/17 22:55 Dose: 650 mg Ferrous Sulfate (Feosol) 324 mg PO TID [facility] Last Admin: 06/03/17 20:37 Dose: Not Given Heparin Sodium (Porcine) (Heparin) 5,000 units SC Q12 [facility] PRN Reason: Protocol Last Admin: 06/03/17 22:33 Dose: 5,000 units Hydromorphone HCl (Dilaudid) 0.5 mg IVP Q4H PRN PRN Reason: Pain, severe (8-10) Last Admin: 06/04/17 07:06 Dose: 0.5 mg Vancomycin HCl (Vancomycin 1gm) 1 gm in 250 mls @ 167 mls/hr IVPB Q12H [facility] PRN Reason: Protocol Stop: 06/07/17 22:01 Last Admin: 06/03/17 22:32 Dose: 167 mls/hr Lactated Ringer's (Lactated Ringer's) 1,000 mls @ 150 mls/hr IV .Q6H40M [facility] Last Admin: 06/04/17 05:09 Dose: Not Given Sodium Chloride (Sodium Chloride 0.45%) 1,000 mls @ 80 mls/hr IV .[id number] [facility] Last Admin: 06/04/17 08:09 Dose: Not Given Mupirocin (Bactroban Ointment) 1 gm NS BID [facility] Stop: 06/06/17 10:01 Last Admin: 06/03/17 20:37 Dose: Not Given Ondansetron HCl (Zofran Inj) 4 mg IVP Q4H PRN PRN Reason: Nausea/Vomiting Oxycodone/Acetaminophen (Percocet 10/325 Mg Tab) 1 tab PO Q6H PRN PRN Reason: Pain, moderate (4-7) Last Admin: 06/04/17 05:06 Dose: 1 tab Pantoprazole Sodium (Protonix Ec Tab) 40 mg PO ACB [facility] Last Admin: 06/04/17 08:10 Dose: 40 mg Polyethylene Glycol (Miralax) 17 gm PO DAILY [facility] - Labs Labs: 06/04/17 06:00 06/04/17 06:00 PT 16.2 SECONDS (9.4-12.5) H 05/30/17 07:00 INR 1.40 (0.93-1.08) H 05/30/17 07:00 APTT 28.8 Seconds (25.1-36.5) 05/30/17 07:00 - Constitutional Appears: Non-toxic, No Acute Distress, Older Than Stated Age - Head Exam Head Exam: ATRAUMATIC, NORMAL INSPECTION, NORMOCEPHALIC - Eye Exam Eye Exam: EOMI, Normal appearance - ENT Exam ENT Exam: Mucous Membranes Moist - Neck Exam Neck Exam: Full ROM - Respiratory Exam Respiratory Exam: NORMAL BREATHING PATTERN. absent: Accessory Muscle Use, Wheezes, Respiratory Distress - GI/Abdominal Exam GI & Abdominal Exam: Soft. absent: Guarding, Rigid, Tenderness - Extremities Exam Extremities Exam: absent: Calf Tenderness Additional comments: right lower extremity dressing in place. Continues to drain. Colon x4 in place. Distal pulses intact - Neurological Exam Neurological Exam: Alert, Awake, Oriented x3 - Psychiatric Exam Psychiatric exam: Normal Affect, Normal Mood - Skin Skin Exam: Dry, Intact, Normal Color, Warm Assessment and Plan - Assessment and Plan (Free Text) Assessment: 41yo F s/p R groin I&D of large loculated abscess on 05/31/17. POD4 Wound Culture: MRSA Plan: - Pain management - f/u MRI studies as ordered by primary team - Abx as per ID - Encourage OOBTC - Dressing changes as needed: Dry gauzes, ABD pads with tape. Do not remove gia drains x4. Further recs as per Dr. Rajinder Castle PGY1 surgery pager: [phone]
[2017-06-04] MEDS ORDERED: DAPTOmycin 500 mg Inj (Cubicin) IV SCH (11:45)
[2017-06-04] MEDS: HYDROmorphone 2 mg/ml ISec IVP PRN ×3 (16:07→23:52)
--- NOTE | 2017-06-04 18:24 | CP.PCM.PN ---
<Yaima Francisco - Last Filed: 06/04/17 18:21> Subjective - Date & Time of Evaluation Date of Evaluation: 06/04/17 Time of Evaluation: 07:30 - Subjective Subjective: Yaima Nolan PGY1 IM Progress Note Patient was seen and examined at bedside. Patient reports some improvement in her pain overall, and slept well yesterday for the first time. She denies any fevers, chills, abdominal pain, dysuria, nausea, vomiting. She does report soft , loose stools, without melena or hematochezia. She also denies chest pain or shortness of breath. She is saying she wants to go home, and does not want to go to a rehab facility, despite her difficulty with ambulation. Objective - Vital Signs/Intake and Output Vital Signs (last 24 hours): Temp Pulse Resp BP Pulse Ox 98.9 F 82 18 106/66 99 06/04/17 16:42 06/04/17 16:42 06/04/17 16:42 06/04/17 16:42 06/04/17 16:42 Intake and Output: 06/04/17 06/04/17 06:59 18:59 Intake Total 240 540 Balance 240 540 - Medications Medications: Current Medications Acetaminophen (Tylenol 325mg Tab) 650 mg PO Q4H PRN PRN Reason: Fever >100.5 F Last Admin: 06/02/17 22:55 Dose: 650 mg Ferrous Sulfate (Feosol) 324 mg PO TID [facility] Last Admin: 06/04/17 17:53 Dose: 324 mg Heparin Sodium (Porcine) (Heparin) 5,000 units SC Q12 [facility] PRN Reason: Protocol Last Admin: 06/04/17 10:10 Dose: Not Given Hydromorphone HCl (Dilaudid) 0.5 mg IVP Q4H PRN PRN Reason: Pain, severe (8-10) Last Admin: 06/04/17 16:07 Dose: 0.5 mg Lactated Ringer's (Lactated Ringer's) 1,000 mls @ 150 mls/hr IV .Q6H40M [facility] Last Admin: 06/04/17 05:09 Dose: Not Given Sodium Chloride (Sodium Chloride 0.45%) 1,000 mls @ 80 mls/hr IV .[id number] [facility] Last Admin: 06/04/17 08:09 Dose: Not Given Daptomycin 350 mg/ Sodium (Chloride) 100 mls @ 200 mls/hr IV Q24H [facility] Stop: 06/09/17 11:46 Last Admin: 06/04/17 15:25 Dose: 200 mls/hr Mupirocin (Bactroban Ointment) 1 gm NS BID [facility] Stop: 06/06/17 10:01 Last Admin: 06/04/17 17:51 Dose: 1 applic Ondansetron HCl (Zofran Inj) 4 mg IVP Q4H PRN PRN Reason: Nausea/Vomiting Oxycodone/Acetaminophen (Percocet 10/325 Mg Tab) 1 tab PO Q6H PRN PRN Reason: Pain, moderate (4-7) Last Admin: 06/04/17 17:51 Dose: 1 tab Pantoprazole Sodium (Protonix Ec Tab) 40 mg PO ACB [facility] Last Admin: 06/04/17 08:10 Dose: 40 mg Polyethylene Glycol (Miralax) 17 gm PO DAILY [facility] Last Admin: 06/04/17 10:10 Dose: Not Given - Labs Labs: 06/04/17 06:00 06/04/17 06:00 PT 16.2 SECONDS (9.4-12.5) H 05/30/17 07:00 INR 1.40 (0.93-1.08) H 05/30/17 07:00 APTT 28.8 Seconds (25.1-36.5) 05/30/17 07:00 - Constitutional Appears: Non-toxic, No Acute Distress - Head Exam Head Exam: ATRAUMATIC, NORMOCEPHALIC - Eye Exam Eye Exam: EOMI, Normal appearance, PERRL - ENT Exam ENT Exam: Mucous Membranes Moist - Neck Exam Neck Exam: Normal Inspection - Respiratory Exam Respiratory Exam: Clear to Ausculation Bilateral, NORMAL BREATHING PATTERN - Cardiovascular Exam Cardiovascular Exam: RRR, +S1, +S2 - GI/Abdominal Exam GI & Abdominal Exam: Soft, Normal Bowel Sounds. absent: Tenderness - Extremities Exam Extremities Exam: absent: Calf Tenderness, Pedal Edema Additional comments: Dressing in place over right groin, appears clean, dry and intact. Marked atrophy in bilateral legs - Back Exam Additional comments: Dressing in place in right back, with bag with small amount of purulent fluid, slightly more than yesterday. Assessment and Plan - Assessment and Plan (Free Text) Assessment: 41 year old female with a past medical history significant for Hepatitis C and polysubstance abuse who presents with a constant sharp pain in the right buttock radiating to the right leg that started suddenly 8 weeks ago with no inciting event with associated right inguinal mass. Patient being treated for sepsis due to multiple loculated abscesses Plan: 1. Sepsis 2/2 multiple loculated abscesses - No longer meets SIRS criteria - s/p 100cc purulent fluid aspiration of abscess in right retroperitoneum extending from liver to iliac crest by Dr. Alvarez (IR) - s/p R groin I&D and aspiration of 600cc of purulent fluid from loculated abscess by Dr. Calvillo (Surgery) - s/p R gluteal abscess aspiration of 10cc purulent fluid by Dr. Alvarez (IR) - Persistent leukocytosis; no fever, tachycardia, tachypnea, or hypotension - Multiple abscesses fluid growing MRSA; mycobacterial cultures pending, AFB negative; Anaerobic culture negative - MRSA noted in Nares as well - Continue IV Zosyn per ID; discussed with ID regarding antibiotic selection in setting of ASAD; ordered random Vanc level and switched Vanc to Daptomycin 6mg/ kg Q24HR - Ordered ESR and CRP; ordered MRI of spine to r/o epidural abscess per discussion with ID - Tylenol PRN for fever; Zofran PRN for N/V - Pain regimen - Quantiferon gold indeterminate; patient is at low risk for TB, without any typical symptoms or imaging findings; unlikely to have TB - ID consulted, all recommendations appreciated 2. Anemia - H&H stable since yesterday; no signs of active bleeding; no indicate to transfuse at this time - Type and screen done - Continue PO Iron - Peripheral smear pending - Monitor with daily CBC's 3. ASAD - Unchanged - Continue LR @ 150cc/hr - Patient also received several doses of toradol on the day of surgery, prior to the elevation in serum Cr - Urine studies show FENa 3.5% - likely intrarenal pathology; possibly ATN 2/2 NSAIDs and/or vancomycin - Switched vanc to dapto, as above - Ordered repeat UA to assess for casts - Ordered renal US to r/o obstruction, mass, cyst, or abscess - Continue to monitor with daily CMP 4. Thrombocytosis - Likely reactive; improving - Peripheral smear pending - DVT Prophylaxis GI Prophylaxis: Protonix DVT Prophylaxis: Heparin and SCD's Patient was seen, examined and discussed with attending, Dr. Dangelo <Glenda Dangelo B - Last Filed: 06/06/17 14:48> Objective - Vital Signs/Intake and Output Vital Signs (last 24 hours): Temp Pulse Resp BP Pulse Ox 98.2 F 85 20 120/80 98 06/06/17 08:14 06/06/17 08:14 06/06/17 08:14 06/06/17 08:14 06/06/17 08:14 Intake and Output: 06/06/17 06/06/17 06:59 18:59 Intake Total 860 Balance 860 - Medications Medications: Current Medications Acetaminophen (Tylenol 325mg Tab) 650 mg PO Q4H PRN PRN Reason: Fever >100.5 F Last Admin: 06/02/17 22:55 Dose: 650 mg Ferrous Sulfate (Feosol) 324 mg PO TID [facility] Last Admin: 06/06/17 13:51 Dose: 324 mg Heparin Sodium (Porcine) (Heparin) 5,000 units SC Q12 [facility] PRN Reason: Protocol Last Admin: 06/06/17 09:32 Dose: 5,000 units Hydromorphone HCl (Dilaudid) 0.5 mg IVP Q4H PRN PRN Reason: Pain, severe (8-10) Last Admin: 06/06/17 13:50 Dose: 0.5 mg Daptomycin 350 mg/ Sodium (Chloride) 100 mls @ 200 mls/hr IV Q24H [facility] Stop: 06/09/17 11:46 Last Admin: 06/06/17 12:57 Dose: 200 mls/hr Sodium Chloride (Sodium Chloride 0.45%) 1,000 mls @ 175 mls/hr IV .Q5H43M [facility] Last Admin: 06/06/17 02:30 Dose: 175 mls/hr Multi-Ingredient Cream (Hydrocerin Cream) 0 ea TOP DAILY PRN PRN Reason: DRY SKIN Ondansetron HCl (Zofran Inj) 4 mg IVP Q4H PRN PRN Reason: Nausea/Vomiting Oxycodone/Acetaminophen (Percocet 10/325 Mg Tab) 1 tab PO Q6H PRN PRN Reason: Pain, moderate (4-7) Last Admin: 06/06/17 08:20 Dose: 1 tab Pantoprazole Sodium (Protonix Ec Tab) 40 mg PO ACB [facility] Last Admin: 06/06/17 08:14 Dose: 40 mg Polyethylene Glycol (Miralax) 17 gm PO DAILY [facility] Last Admin: 06/06/17 09:33 Dose: 17 gm Potassium Chloride (K-Dur 20 Meq Er Tab) 20 meq PO BRK [facility] Last Admin: 06/06/17 13:51 Dose: 20 meq - Labs Labs: 06/06/17 05:45 06/06/17 05:45 PT 16.2 SECONDS (9.4-12.5) H 05/30/17 07:00 INR 1.40 (0.93-1.08) H 05/30/17 07:00 APTT 28.8 Seconds (25.1-36.5) 05/30/17 07:00 Attending/Attestation - Attestation I have personally seen and examined this patient.: Yes I have fully participated in the care of the patient.: Yes I have reviewed all pertinent clinical information, including history, physical exam and plan: Yes Notes (Text): I have seen and examined the patient at bedside. Agree with the progress note with the following additions/ exceptions: Briefly this is 41 year old female with history of Hep C (known and untreated)and polysubstance abuse who was admitted for evaluation of right buttock pain which was radiating to right leg with associated right inguinal mass which she noticed [address] chest abdomen and pelvis showed multiple necrotic masses in right thigh, pelvic and subhepatic area. She underwent CT-guided aspiration of right subhepatic abscess and now has drain in place. She also had I&D of right thigh abscess and 600 cc of pus was drained. Wound culture grew MRSA. Repeat CT revealed persistent fluid collections in right psoas and right piriformis muscle. Patient underwent IR drainage and 10 cc of purulent fluid was removed from gluteal abscess. Also has acute kidney injury. Will increase IVF. Patient was on vancomycin which is nephrotoxic which was discontinued. Plan for possible rehab although patient is refusing that. HIV negative. Continue iron for anemia. Upon discharge patient will follow up with PMD of choice. Dr Glenda Dangelo
--- NOTE | 2017-06-04 23:23 | US ---
EXAM: US Retroperitoneal Limited, Renal CLINICAL HISTORY: 41 years old, female; Abnormal findings; Abnormal lab test; Abnormal kidney function lab tests; Additional info: Intrisic renal failure; Gurwinder TECHNIQUE: Real-time ultrasound of the retroperitoneum (limited) with image documentation. COMPARISON: CT - CHEST,ABDOMEN,PELVIS W/O CONT 2017-06-02 07:43 FINDINGS: Right kidney: Increased in echogenicity. No mass. No calculi. No hydronephrosis. Left kidney: Increased in echogenicity. No mass. No calculi. No hydronephrosis. IMPRESSION: 1. Echogenic kidneys suggesting medical renal disease.
[2017-06-05 00:26] LABS: URINE BILIRUBIN NEGATIVE (NEGATIVE); URINE BLOOD TRACE-INTACT (NEGATIVE); URINE GLUCOSE (UA) NEGATIVE (NEGATIVE); URINE LEUKOCYTE ESTERASE TRACE Leu/uL (NEGATIVE); URINE NITRATE NEGATIVE (NEGATIVE); URINE PROTEIN NEGATIVE mg/dL (<30 mg/dL); URINE UROBILINOGEN 0.2 E.U./dL (<1 E.U./dL)
[2017-06-05 00:28] LABS: URINE APPEARANCE CLEAR (CLEAR); URINE COLOR YELLOW (YELLOW)
--- NOTE | 2017-06-05 00:47 | PN ---
DATE: 06/04/2017 SUBJECTIVE: The patient is seen in bed, in no acute distress, nontoxic. PHYSICAL EXAMINATION: VITAL SIGNS: Temperature is 98, blood pressure is 106/60, respiratory rate of 18, heart rate of 82. HEENT: Unremarkable. NECK: Supple. LUNGS: Have decreased breath sounds. HEART: Normal S1 and S2. ABDOMEN: Soft . LABORATORY DATA: Reveals the patient's white count is 17,000, sed rate is 115. Chemistries reveals the creatinine is 1.6 and urinalysis is noted. Random vancomycin level of 32 and RPR is negative. HIV is negative. Microbiology reveals MRSA from the body fluid and an MRSA also from another body fluid. The first one was obtained by Dr. Toro Alvarez, it was a CAT scan guided drainage of an abscess from the gluteal abscess aspiration. The patient's C-reactive protein is pending. ASSESSMENT AND PLAN: A 41-year-old female with a right inguinal necrotic mass in the iliac and iliopsoas muscle, status post incision and drainage, with methicillin-resistant Staphylococcus aureus in a patient with hepatitis C, with worsening renal function, increased vancomycin level. We will discontinue the vancomycin, start daptomycin. Awaiting for MRI of the spine. Also the blood cultures have been reported to be negative and the echocardiogram is reported to be negative, concerned about a deep-seated infection because the patient with elevated sed rate. In the echocardiogram, no obvious vegetations are noted. Will need prolonged antibiotic therapy with daptomycin pending MRI of the spine to rule out vertebral osteomyelitis. This case was discussed with Dr. Yaima Francisco. We will follow with you. Daniel Yancey MD
[2017-06-05 00:49] LABS: URINE BACTERIA RARE (NEG)
[2017-06-05] MEDS: Oxycodone/Acetaminophen 10/325 mg Tab PO PRN ×3 (01:16→20:18)
[2017-06-05] MEDS: HYDROmorphone 2 mg/ml ISec IVP PRN ×4 (03:50→17:47)
[2017-06-05] MEDS: Sodium Chloride 0.45% 1,000 ML IV SCH ×4 (06:59→23:00)
[2017-06-05] MEDS: Pantoprazole 40 mg EC Tab PO SCH (06:59)
[2017-06-05 08:03] LABS: BASO # 0.02 K/mm3 (0.0-2.0); BASO % 0.1 % (0.0-3.0); EOS # 0.2 (0.0-0.7); EOS % 1.1 % (1.5-5.0); GRAN # 14.32 (1.4-6.5); GRAN % 81.3 % (50.0-68.0); LYMPH # 2.1 (1.2-3.4); MEAN CELL VOLUME 83.3 fl (80.0-105.0); MEAN CORPUSCULAR HEMOGLOBIN 25.4 pg (25.0-35.0); MEAN CORPUSCULAR HGB CONC 30.5 g/dl (31.0-37.0); MEAN PLATELET VOLUME 8.9 fl (7.0-11.0); MONO % 5.5 % (1.0-6.0); RBC 2.99 10^6/uL (3.5-6.1); RED CELL DISTRIBUTION WIDTH 16.6 % (11.5-14.5); WHITE BLOOD COUNT 17.6 10^3/ul (4.5-11.0)
[2017-06-05 08:07] LABS: HEMOGLOBIN 7.6 g/dL (12.0-16.0)
[2017-06-05 08:24] LABS: ALB/GLOB RATIO 0.5 (1.1-1.8)
[2017-06-05] MEDS ORDERED: Menthol/Methyl Salicylate Ointment(1 oz) TOP PRN (11:24)
[2017-06-05] MEDS: POLYETHYLENE GLYCOL 3350 17 GM/Dose PACKET PO SCH (11:53)
--- NOTE | 2017-06-05 12:35 | CP.PCM.PN ---
<Yaima Francisco - Last Filed: 06/05/17 12:31> Subjective - Date & Time of Evaluation Date of Evaluation: 06/05/17 Time of Evaluation: 07:30 - Subjective Subjective: Yaima Francisco PGY1 IM Progress Note Patient was seen and examined at bedside. No acute events overnight. Patient is concerned about the MRI today. She reports loose bowel movements, but not watery , bloody, or mucoid. She denies any fevers, chills, abdominal pain, dysuria, nausea, vomiting. Objective - Vital Signs/Intake and Output Vital Signs (last 24 hours): Temp Pulse Resp BP Pulse Ox 98.0 F 82 20 121/85 98 06/05/17 08:00 06/05/17 08:00 06/05/17 08:00 06/05/17 08:00 06/05/17 08:00 Intake and Output: 06/05/17 06/05/17 06:59 18:59 Intake Total 1860 Output Total 750 Balance 1110 - Medications Medications: Current Medications Acetaminophen (Tylenol 325mg Tab) 650 mg PO Q4H PRN PRN Reason: Fever >100.5 F Last Admin: 06/02/17 22:55 Dose: 650 mg Ferrous Sulfate (Feosol) 324 mg PO TID [facility] Last Admin: 06/05/17 11:53 Dose: 324 mg Heparin Sodium (Porcine) (Heparin) 5,000 units SC Q12 [facility] PRN Reason: Protocol Last Admin: 06/05/17 11:53 Dose: 5,000 units Hydromorphone HCl (Dilaudid) 0.5 mg IVP Q4H PRN PRN Reason: Pain, severe (8-10) Last Admin: 06/05/17 08:42 Dose: 0.5 mg Daptomycin 350 mg/ Sodium (Chloride) 100 mls @ 200 mls/hr IV Q24H [facility] Stop: 06/09/17 11:46 Last Admin: 06/04/17 15:25 Dose: 200 mls/hr Sodium Chloride (Sodium Chloride 0.45%) 1,000 mls @ 175 mls/hr IV .Q5H43M [facility] Last Admin: 06/05/17 11:56 Dose: 175 mls/hr Mupirocin (Bactroban Ointment) 1 gm NS BID [facility] Stop: 06/06/17 10:01 Last Admin: 06/05/17 11:53 Dose: 1 applic Ondansetron HCl (Zofran Inj) 4 mg IVP Q4H PRN PRN Reason: Nausea/Vomiting Oxycodone/Acetaminophen (Percocet 10/325 Mg Tab) 1 tab PO Q6H PRN PRN Reason: Pain, moderate (4-7) Last Admin: 06/05/17 06:58 Dose: 1 tab Pantoprazole Sodium (Protonix Ec Tab) 40 mg PO ACB [facility] Last Admin: 06/05/17 06:59 Dose: 40 mg Polyethylene Glycol (Miralax) 17 gm PO DAILY [facility] Last Admin: 06/05/17 11:53 Dose: 17 gm - Labs Labs: 06/05/17 07:00 06/05/17 07:00 PT 16.2 SECONDS (9.4-12.5) H 05/30/17 07:00 INR 1.40 (0.93-1.08) H 05/30/17 07:00 APTT 28.8 Seconds (25.1-36.5) 05/30/17 07:00 - Constitutional Appears: Non-toxic, No Acute Distress - Head Exam Head Exam: ATRAUMATIC, NORMOCEPHALIC - Eye Exam Eye Exam: EOMI, Normal appearance, PERRL - ENT Exam ENT Exam: Mucous Membranes Moist, Normal Exam - Respiratory Exam Respiratory Exam: Clear to Ausculation Bilateral, NORMAL BREATHING PATTERN - Cardiovascular Exam Cardiovascular Exam: RRR, +S1, +S2 - GI/Abdominal Exam GI & Abdominal Exam: Soft, Normal Bowel Sounds. absent: Tenderness - Extremities Exam Extremities Exam: absent: Calf Tenderness, Pedal Edema Additional comments: Dressing in place over right groin, appears clean, dry and intact. Marked atrophy in bilateral legs. - Back Exam Additional comments: Dressing in place in right back, with bag with small amount of purulent fluid - Neurological Exam Neurological Exam: Alert, Awake, Oriented x3 - Psychiatric Exam Psychiatric exam: Normal Affect, Normal Mood - Skin Skin Exam: Dry, Intact, Normal Color Assessment and Plan - Assessment and Plan (Free Text) Assessment: 41 year old female with a past medical history significant for Hepatitis C and polysubstance abuse who presents with a constant sharp pain in the right buttock radiating to the right leg that started suddenly 8 weeks ago with no inciting event with associated right inguinal mass. Patient being treated for sepsis due to multiple loculated abscesses Plan: 1. Sepsis 2/2 multiple loculated abscesses - No longer meets SIRS criteria - Multiple abscesses drained by IR and surgery; all growing MRSA - Persistent leukocytosis; no fever, tachycardia, tachypnea, or hypotension - MRSA noted in Nares as well - Continue IV Zosyn and Daptomycin 6mg/kg Q24HR per ID - ESR and CRP markedly elevated - MRI of spine pending, to r/o epidural abscess per discussion with ID - Tylenol PRN for fever; Zofran PRN for N/V - Pain regimen - ID consulted, all recommendations appreciated 2. Anemia - H&H stable; no signs of active bleeding; no indicate to transfuse at this time - Continue PO Iron - Peripheral smear pending - Monitor with daily CBC's 3. ASAD - Unchanged - IVF changed for procedure yesterday, decreased to NS @80cc/hr - increased today to 175cc/hr - Patient also received several doses of toradol on the day of surgery, prior to the elevation in serum Cr - Urine studies show FENa 3.5% - likely intrarenal pathology; possibly ATN 2/2 NSAIDs and/or vancomycin - Random vanc level yesterday was elevated; likely worsening ASAD - Repeat UA shows no casts - Renal US shows increased echogenecity, no obstruction, mass, cyst, or abscess noted - Continue to monitor with daily CMP 4. Thrombocytosis - Likely reactive; improving - Peripheral smear pending - DVT Prophylaxis 5. Back pain and leg weakness - Pain likely 2/2 abscesses - Weakness likely 2/2 deconditioning - MRI pending to r/o discitis and epidural abscess - Ordered PT eval/treat GI Prophylaxis: Protonix DVT Prophylaxis: Heparin and SCD's Patient was seen, examined and discussed with attending, Dr. Dangelo <Glenda Dangelo - Last Filed: 06/06/17 14:51> Objective - Vital Signs/Intake and Output Vital Signs (last 24 hours): Temp Pulse Resp BP Pulse Ox 98.2 F 85 20 120/80 98 06/06/17 08:14 06/06/17 08:14 06/06/17 08:14 06/06/17 08:14 06/06/17 08:14 Intake and Output: 06/06/17 06/06/17 06:59 18:59 Intake Total 860 Balance 860 - Medications Medications: Current Medications Acetaminophen (Tylenol 325mg Tab) 650 mg PO Q4H PRN PRN Reason: Fever >100.5 F Last Admin: 06/02/17 22:55 Dose: 650 mg Ferrous Sulfate (Feosol) 324 mg PO TID [facility] Last Admin: 06/06/17 13:51 Dose: 324 mg Heparin Sodium (Porcine) (Heparin) 5,000 units SC Q12 [facility] PRN Reason: Protocol Last Admin: 06/06/17 09:32 Dose: 5,000 units Hydromorphone HCl (Dilaudid) 0.5 mg IVP Q4H PRN PRN Reason: Pain, severe (8-10) Last Admin: 06/06/17 13:50 Dose: 0.5 mg Daptomycin 350 mg/ Sodium (Chloride) 100 mls @ 200 mls/hr IV Q24H [facility] Stop: 06/09/17 11:46 Last Admin: 06/06/17 12:57 Dose: 200 mls/hr Sodium Chloride (Sodium Chloride 0.45%) 1,000 mls @ 175 mls/hr IV .Q5H43M [facility] Last Admin: 06/06/17 02:30 Dose: 175 mls/hr Multi-Ingredient Cream (Hydrocerin Cream) 0 ea TOP DAILY PRN PRN Reason: DRY SKIN Ondansetron HCl (Zofran Inj) 4 mg IVP Q4H PRN PRN Reason: Nausea/Vomiting Oxycodone/Acetaminophen (Percocet 10/325 Mg Tab) 1 tab PO Q6H PRN PRN Reason: Pain, moderate (4-7) Last Admin: 06/06/17 08:20 Dose: 1 tab Pantoprazole Sodium (Protonix Ec Tab) 40 mg PO ACB [facility] Last Admin: 06/06/17 08:14 Dose: 40 mg Polyethylene Glycol (Miralax) 17 gm PO DAILY [facility] Last Admin: 06/06/17 09:33 Dose: 17 gm Potassium Chloride (K-Dur 20 Meq Er Tab) 20 meq PO BRK [facility] Last Admin: 06/06/17 13:51 Dose: 20 meq - Labs Labs: 06/06/17 05:45 06/06/17 05:45 PT 16.2 SECONDS (9.4-12.5) H 05/30/17 07:00 INR 1.40 (0.93-1.08) H 05/30/17 07:00 APTT 28.8 Seconds (25.1-36.5) 05/30/17 07:00 Attending/Attestation - Attestation I have personally seen and examined this patient.: Yes I have fully participated in the care of the patient.: Yes I have reviewed all pertinent clinical information, including history, physical exam and plan: Yes Notes (Text): I have seen and examined the patient at bedside. Agree with the progress note with the following additions/ exceptions: Briefly this is 41 year old female with history of Hep C (known and untreated)and polysubstance abuse who was admitted for evaluation of right buttock pain which was radiating to right leg with associated right inguinal mass which she noticed [address] chest abdomen and pelvis showed multiple necrotic masses in right thigh, pelvic and subhepatic area. She underwent CT-guided aspiration of right subhepatic abscess and now has drain in place. She also had I&D of right thigh abscess and 600 cc of pus was drained. Wound culture grew MRSA. Repeat CT revealed persistent fluid collections in right psoas and right piriformis muscle. Patient underwent IR drainage and 10 cc of purulent fluid was removed from gluteal abscess. Also has acute kidney injury. Will continue IVF. Patient was on vancomycin which was discontinued. She was started on zosyn and daptomycin. MRI spine pending to rule out epidural abscess. Plan for possible rehab although patient is refusing that. HIV negative. Continue iron for anemia. Upon discharge patient will follow up with PMD of choice. Dr Glenda Dangelo
--- NOTE | 2017-06-05 12:36 | MRI ---
PROCEDURE: MR LUMBAR SPINE WITHOUT CONTRAST HISTORY: r/o abscess/osteo COMPARISON: CT of the chest abdomen and pelvis 06/02/2017 TECHNIQUE: Multiecho multiplanar sequences were performed through the lumbar spine without the use of intravenous contrast. FINDINGS: Normal lumbar lordosis. Vertebral body heights are preserved. There is some marrow edema in the L3 vertebral body surrounding the area of the basivertebral vein. This could represent early osteomyelitis. There are no prior MRI studies for comparison. There is no evidence of disc space infection Conus medullaris unremarkable at the level of L1 Paraspinal soft tissues are unremarkable. T12-L1: No disc herniation, spinal canal stenosis or neural foraminal narrowing. L1-2: No disc herniation, spinal canal stenosis or neural foraminal narrowing. L2-3: No disc herniation, spinal canal stenosis or neural foraminal narrowing. L3-4: No disc herniation, spinal canal stenosis or neural foraminal narrowing. L4-5: No disc herniation, spinal canal stenosis or neural foraminal narrowing. L5-S1: No disc herniation, spinal canal stenosis or neural foraminal narrowing. OTHER FINDINGS: Multiple fluid collections can be seen in the erector muscles of the spine as well as the right psoas muscle. These are consistent with the clinical history of multiple abscesses. IMPRESSION: Multiple fluid collections can be seen in the erector muscles of the spine as well as the right psoas muscle. These are consistent with the clinical history of multiple abscesses. There is some marrow edema in the L3 vertebral body surrounding the area of the basivertebral vein. This could represent early osteomyelitis. No evidence of disc space infection or epidural abscess
--- NOTE | 2017-06-05 13:03 | CP.PCM.PN ---
Subjective - Date & Time of Evaluation Date of Evaluation: 06/05/17 Time of Evaluation: 07:20 - Subjective Subjective: Patient seen and examined this AM. No adverse events overnight. Attempted IR- guided drainage/aspiration of pelvic collection by sciatic notch and psoas muscle collection yesterday was unsuccessful. Patient reports continued lower back pain but less drainage from the thigh abscess I&D. Patient denies fevers, nausea, vomiting, or any other symptoms. Objective - Vital Signs/Intake and Output Vital Signs (last 24 hours): Temp Pulse Resp BP Pulse Ox 98.0 F 82 20 121/85 98 06/05/17 08:00 06/05/17 08:00 06/05/17 08:00 06/05/17 08:00 06/05/17 08:00 Intake and Output: 06/05/17 06/05/17 06:59 18:59 Intake Total 1860 Output Total 750 Balance 1110 - Medications Medications: Current Medications Acetaminophen (Tylenol 325mg Tab) 650 mg PO Q4H PRN PRN Reason: Fever >100.5 F Last Admin: 06/02/17 22:55 Dose: 650 mg Ferrous Sulfate (Feosol) 324 mg PO TID [facility] Last Admin: 06/05/17 11:53 Dose: 324 mg Heparin Sodium (Porcine) (Heparin) 5,000 units SC Q12 [facility] PRN Reason: Protocol Last Admin: 06/05/17 11:53 Dose: 5,000 units Hydromorphone HCl (Dilaudid) 0.5 mg IVP Q4H PRN PRN Reason: Pain, severe (8-10) Last Admin: 06/05/17 08:42 Dose: 0.5 mg Daptomycin 350 mg/ Sodium (Chloride) 100 mls @ 200 mls/hr IV Q24H [facility] Stop: 06/09/17 11:46 Last Admin: 06/04/17 15:25 Dose: 200 mls/hr Sodium Chloride (Sodium Chloride 0.45%) 1,000 mls @ 175 mls/hr IV .Q5H43M [facility] Last Admin: 06/05/17 11:56 Dose: 175 mls/hr Mupirocin (Bactroban Ointment) 1 gm NS BID [facility] Stop: 06/06/17 10:01 Last Admin: 06/05/17 11:53 Dose: 1 applic Ondansetron HCl (Zofran Inj) 4 mg IVP Q4H PRN PRN Reason: Nausea/Vomiting Oxycodone/Acetaminophen (Percocet 10/325 Mg Tab) 1 tab PO Q6H PRN PRN Reason: Pain, moderate (4-7) Last Admin: 06/05/17 06:58 Dose: 1 tab Pantoprazole Sodium (Protonix Ec Tab) 40 mg PO ACB [facility] Last Admin: 06/05/17 06:59 Dose: 40 mg Polyethylene Glycol (Miralax) 17 gm PO DAILY [facility] Last Admin: 06/05/17 11:53 Dose: 17 gm - Labs Labs: 06/05/17 07:00 06/05/17 07:00 PT 16.2 SECONDS (9.4-12.5) H 05/30/17 07:00 INR 1.40 (0.93-1.08) H 05/30/17 07:00 APTT 28.8 Seconds (25.1-36.5) 05/30/17 07:00 - Constitutional Appears: Well, Non-toxic, No Acute Distress - Head Exam Head Exam: ATRAUMATIC, NORMOCEPHALIC - Eye Exam Eye Exam: EOMI, Normal appearance - ENT Exam ENT Exam: Mucous Membranes Moist - Respiratory Exam Respiratory Exam: Accessory Muscle Use, Respiratory Distress, NORMAL BREATHING PATTERN - GI/Abdominal Exam GI & Abdominal Exam: Soft. absent: Distended, Tenderness - Extremities Exam Additional comments: right thigh incision with moderate amount of sero-purulent drainage, no surrounding erythema or bleeding - Back Exam Additional comments: Dressing from IR abscess drainage is intact with moderate amount of sero- sanguinous saturation. IR drain with scant amount of purulent fluid drainage - Neurological Exam Neurological Exam: Alert, Awake, Oriented x3 - Skin Skin Exam: Dry, Intact (except as noted above), Normal Color, Warm Assessment and Plan - Assessment and Plan (Free Text) Assessment: 41yo F s/p R groin I&D of large loculated abscess on 05/31/17. POD3 Plan: - Pain management - Abx as per ID - f/u wound culture - F/U MRI of the spine for possible abscess as ordered by primary - No further surgical intervention necessary at this time - Encourage OOBTC Seen and discussed with Dr. Rajinder Danielle, PGY2
--- NOTE | 2017-06-05 17:17 | CP.PCM.PN ---
Subjective - Date & Time of Evaluation Date of Evaluation: 06/05/17 Time of Evaluation: 12:40 - Subjective Subjective: Comfortable in bed, no fevers. Objective - Vital Signs/Intake and Output Vital Signs (last 24 hours): Temp Pulse Resp BP Pulse Ox 98.0 F 82 20 121/85 98 06/05/17 08:00 06/05/17 08:00 06/05/17 08:00 06/05/17 08:00 06/05/17 08:00 Intake and Output: 06/05/17 06/05/17 06:59 18:59 Intake Total 1860 Output Total 750 Balance 1110 - Medications Medications: Current Medications Acetaminophen (Tylenol 325mg Tab) 650 mg PO Q4H PRN PRN Reason: Fever >100.5 F Last Admin: 06/02/17 22:55 Dose: 650 mg Ferrous Sulfate (Feosol) 324 mg PO TID [facility] Last Admin: 06/04/17 17:53 Dose: 324 mg Heparin Sodium (Porcine) (Heparin) 5,000 units SC Q12 [facility] PRN Reason: Protocol Last Admin: 06/04/17 21:23 Dose: 5,000 units Hydromorphone HCl (Dilaudid) 0.5 mg IVP Q4H PRN PRN Reason: Pain, severe (8-10) Last Admin: 06/05/17 08:42 Dose: 0.5 mg Daptomycin 350 mg/ Sodium (Chloride) 100 mls @ 200 mls/hr IV Q24H [facility] Stop: 06/09/17 11:46 Last Admin: 06/04/17 15:25 Dose: 200 mls/hr Sodium Chloride (Sodium Chloride 0.45%) 1,000 mls @ 175 mls/hr IV .Q5H43M [facility] Mupirocin (Bactroban Ointment) 1 gm NS BID [facility] Stop: 06/06/17 10:01 Last Admin: 06/04/17 17:51 Dose: 1 applic Ondansetron HCl (Zofran Inj) 4 mg IVP Q4H PRN PRN Reason: Nausea/Vomiting Oxycodone/Acetaminophen (Percocet 10/325 Mg Tab) 1 tab PO Q6H PRN PRN Reason: Pain, moderate (4-7) Last Admin: 06/05/17 06:58 Dose: 1 tab Pantoprazole Sodium (Protonix Ec Tab) 40 mg PO ACB [facility] Last Admin: 06/05/17 06:59 Dose: 40 mg Polyethylene Glycol (Miralax) 17 gm PO DAILY [facility] Last Admin: 06/04/17 10:10 Dose: Not Given - Labs Labs: 06/05/17 07:00 06/05/17 07:00 PT 16.2 SECONDS (9.4-12.5) H 05/30/17 07:00 INR 1.40 (0.93-1.08) H 05/30/17 07:00 APTT 28.8 Seconds (25.1-36.5) 05/30/17 07:00 - Constitutional Appears: Non-toxic, Chronically Ill - Head Exam Head Exam: NORMAL INSPECTION - ENT Exam ENT Exam: Mucous Membranes Moist - Neck Exam Neck Exam: absent: Meningismus - Respiratory Exam Respiratory Exam: Decreased Breath Sounds - Cardiovascular Exam Cardiovascular Exam: +S1, +S2 - GI/Abdominal Exam GI & Abdominal Exam: Soft. absent: Tenderness Assessment and Plan - Assessment and Plan (Free Text) Plan: Assessment right inguinal mass with necrotic masses also found in the iliacus and ilipsoas muscles, S/P I and D and evacuation of pus growing MRSA Hepatitis C polysubstance abuse S/P breast augmentation surgery Plan continue Daptomycin - will need prolonged antibiotics - follow up lumbar MRI Hepatitis C should be addressed as an outpatient
--- NOTE | 2017-06-05 18:09 | PN ---
DATE: SUBJECTIVE: Sharla Sawyer is seen this morning. She is walking around a little bit better. Probably, the medical team has ordered an MRI. Yesterday, Dr. Alvarez drained the abscess on the sciatic nerve by the sciatic notch. The wounds are better. The drainage is slowing down. In general, I think she is improving. Needs to be on long-term antibiotics as there are multiple loculated abscesses. For now, I think we are doing fine. Tj Calvillo MD
[2017-06-06] MEDS: Oxycodone/Acetaminophen 10/325 mg Tab PO PRN ×4 (01:20→23:21)
[2017-06-06] MEDS: Sodium Chloride 0.45% 1,000 ML IV SCH (02:30)
[2017-06-06 06:28] LABS: BASO # 0.02 K/mm3 (0.0-2.0); BASO % 0.1 % (0.0-3.0); EOS # 0.2 (0.0-0.7); EOS % 1.5 % (1.5-5.0); GRAN # 11.53 (1.4-6.5); GRAN % 76.5 % (50.0-68.0); LYMPH # 2.4 (1.2-3.4); LYMPH % 16.1 % (22.0-35.0); MEAN CELL VOLUME 82.9 fl (80.0-105.0); MEAN CORPUSCULAR HEMOGLOBIN 25.7 pg (25.0-35.0); MEAN CORPUSCULAR HGB CONC 30.9 g/dl (31.0-37.0); MEAN PLATELET VOLUME 8.7 fl (7.0-11.0); MONO # 0.9 (0.1-0.6); MONO % 5.8 % (1.0-6.0); RBC 2.69 10^6/uL (3.5-6.1); RED CELL DISTRIBUTION WIDTH 16.9 % (11.5-14.5); WHITE BLOOD COUNT 15.1 10^3/ul (4.5-11.0)
[2017-06-06 06:43] LABS: HEMOGLOBIN 6.9 g/dL (12.0-16.0)
[2017-06-06 06:44] LABS: ALB/GLOB RATIO 0.5 (1.1-1.8); ALBUMIN 1.9 g/dL (3.0-4.8); CALCIUM 8.8 mg/dL (8.4-10.5)
--- NOTE | 2017-06-06 08:02 | CP.PCM.PN ---
Subjective - Date & Time of Evaluation Date of Evaluation: 06/06/17 Time of Evaluation: 07:05 - Subjective Subjective: General Surgery Progress Note for Dr. Calvillo Patient seen and examined at bedside. Patient denies fever, nausea, vomiting, lnew or worsening lower extremity weakness, chills, and reports pain is well controlled. Patient admits to increased ROM to the right lower extremity. Nurse reports no events overnight. Objective - Vital Signs/Intake and Output Vital Signs (last 24 hours): Temp Pulse Resp BP Pulse Ox 97.8 F 94 H 20 113/65 97 06/06/17 00:00 06/06/17 00:00 06/06/17 00:00 06/06/17 00:00 06/06/17 00:00 Intake and Output: 06/06/17 06/06/17 06:59 18:59 Intake Total 860 Balance 860 - Medications Medications: Current Medications Acetaminophen (Tylenol 325mg Tab) 650 mg PO Q4H PRN PRN Reason: Fever >100.5 F Last Admin: 06/02/17 22:55 Dose: 650 mg Ferrous Sulfate (Feosol) 324 mg PO TID [facility] Last Admin: 06/05/17 17:49 Dose: Not Given Heparin Sodium (Porcine) (Heparin) 5,000 units SC Q12 [facility] PRN Reason: Protocol Last Admin: 06/05/17 21:14 Dose: 5,000 units Hydromorphone HCl (Dilaudid) 0.5 mg IVP Q4H PRN PRN Reason: Pain, severe (8-10) Last Admin: 06/06/17 05:55 Dose: 0.5 mg Daptomycin 350 mg/ Sodium (Chloride) 100 mls @ 200 mls/hr IV Q24H [facility] Stop: 06/09/17 11:46 Last Admin: 06/05/17 13:42 Dose: 200 mls/hr Sodium Chloride (Sodium Chloride 0.45%) 1,000 mls @ 175 mls/hr IV .Q5H43M [facility] Last Admin: 06/06/17 02:30 Dose: 175 mls/hr Mupirocin (Bactroban Ointment) 1 gm NS BID [facility] Stop: 06/06/17 10:01 Last Admin: 06/05/17 18:32 Dose: 1 applic Ondansetron HCl (Zofran Inj) 4 mg IVP Q4H PRN PRN Reason: Nausea/Vomiting Oxycodone/Acetaminophen (Percocet 10/325 Mg Tab) 1 tab PO Q6H PRN PRN Reason: Pain, moderate (4-7) Last Admin: 06/06/17 01:20 Dose: 1 tab Pantoprazole Sodium (Protonix Ec Tab) 40 mg PO ACB [facility] Last Admin: 06/05/17 06:59 Dose: 40 mg Polyethylene Glycol (Miralax) 17 gm PO DAILY [facility] Last Admin: 06/05/17 11:53 Dose: 17 gm - Labs Labs: 06/06/17 05:45 06/06/17 05:45 PT 16.2 SECONDS (9.4-12.5) H 05/30/17 07:00 INR 1.40 (0.93-1.08) H 05/30/17 07:00 APTT 28.8 Seconds (25.1-36.5) 05/30/17 07:00 - Constitutional Appears: Non-toxic, No Acute Distress, Older Than Stated Age - Head Exam Head Exam: ATRAUMATIC, NORMOCEPHALIC - Eye Exam Eye Exam: EOMI, Normal appearance - ENT Exam ENT Exam: Mucous Membranes Moist, Normal Oropharynx - Neck Exam Neck Exam: Normal Inspection - Respiratory Exam Respiratory Exam: NORMAL BREATHING PATTERN. absent: Accessory Muscle Use - Cardiovascular Exam Cardiovascular Exam: absent: Tachycardia - GI/Abdominal Exam GI & Abdominal Exam: Soft, Normal Bowel Sounds. absent: Rebound - Extremities Exam Additional comments: right thigh incision with moderate amount of sero-purulent drainage, no surrounding erythema or bleeding - Back Exam Additional comments: Dressing from IR abscess drainage is intact with moderate amount of sero- sanguinous saturation. IR drain with scant amount of purulent fluid drainage. - Neurological Exam Neurological Exam: Alert, Awake, Oriented x3 - Psychiatric Exam Psychiatric exam: Normal Affect, Normal Mood - Skin Skin Exam: Dry, Intact, Normal Color, Warm Assessment and Plan - Assessment and Plan (Free Text) Assessment: 41 year old female s/p R groin I&D of large loculated abscess on 05/31/17. Plan: - Wound dressing changed this morning. - Pain management - Antibiotics as per ID: Daptomycin - Preliminary body fluid cultures taken on 06/03/17 are growing gram positive cocci - MRI impression reads as multiple fluid collections can be seen in the erector muscles of the spine as well as the right psoas muscle. These are consistent with the clinical history of multiple abscesses. There is some marrow edema in the L3 vertebral body surrounding the area of the basivertebral vein. This could represent early osteomyelitis. No evidence of disc space infection or epidural abscess - No further surgical intervention necessary at this time - Encourage OOB to chair - Recommend Physical Therapy Seen and discussed with Dr. Calvillo
[2017-06-06] MEDS: Pantoprazole 40 mg EC Tab PO SCH (08:14)
[2017-06-06] MEDS: POLYETHYLENE GLYCOL 3350 17 GM/Dose PACKET PO SCH (09:33)
[2017-06-06] MEDS ORDERED: Hydrocerin(120 gm) TOP PRN (09:59)
--- NOTE | 2017-06-06 10:07 | CP.PCM.PN ---
<Yaima Francisco - Last Filed: 06/06/17 15:23> Subjective - Date & Time of Evaluation Date of Evaluation: 06/06/17 Time of Evaluation: 07:30 - Subjective Subjective: Yaima Francisco PGY1 IM Progress Note Patient was seen and examined at bedside. No acute events overnight. Patient is concerned about the results of her MRI. She reports slight improvement in her pain and mobility. She denies any fevers, chills, abdominal pain, dysuria, nausea, vomiting. Objective - Vital Signs/Intake and Output Vital Signs (last 24 hours): Temp Pulse Resp BP Pulse Ox 98.2 F 85 20 120/80 98 06/06/17 08:14 06/06/17 08:14 06/06/17 08:14 06/06/17 08:14 06/06/17 08:14 Intake and Output: 06/06/17 06/06/17 06:59 18:59 Intake Total 860 Balance 860 - Medications Medications: Current Medications Acetaminophen (Tylenol 325mg Tab) 650 mg PO Q4H PRN PRN Reason: Fever >100.5 F Last Admin: 06/02/17 22:55 Dose: 650 mg Ferrous Sulfate (Feosol) 324 mg PO TID [facility] Last Admin: 06/06/17 09:32 Dose: 324 mg Heparin Sodium (Porcine) (Heparin) 5,000 units SC Q12 [facility] PRN Reason: Protocol Last Admin: 06/06/17 09:32 Dose: 5,000 units Hydromorphone HCl (Dilaudid) 0.5 mg IVP Q4H PRN PRN Reason: Pain, severe (8-10) Last Admin: 06/06/17 09:42 Dose: 0.5 mg Daptomycin 350 mg/ Sodium (Chloride) 100 mls @ 200 mls/hr IV Q24H [facility] Stop: 06/09/17 11:46 Last Admin: 06/05/17 13:42 Dose: 200 mls/hr Sodium Chloride (Sodium Chloride 0.45%) 1,000 mls @ 175 mls/hr IV .Q5H43M [facility] Last Admin: 06/06/17 02:30 Dose: 175 mls/hr Multi-Ingredient Cream (Hydrocerin Cream) 1 ea TOP PRN PRN PRN Reason: Dry skin Ondansetron HCl (Zofran Inj) 4 mg IVP Q4H PRN PRN Reason: Nausea/Vomiting Oxycodone/Acetaminophen (Percocet 10/325 Mg Tab) 1 tab PO Q6H PRN PRN Reason: Pain, moderate (4-7) Last Admin: 06/06/17 08:20 Dose: 1 tab Pantoprazole Sodium (Protonix Ec Tab) 40 mg PO ACB [facility] Last Admin: 06/06/17 08:14 Dose: 40 mg Polyethylene Glycol (Miralax) 17 gm PO DAILY [facility] Last Admin: 06/06/17 09:33 Dose: 17 gm - Labs Labs: 06/06/17 05:45 06/06/17 05:45 PT 16.2 SECONDS (9.4-12.5) H 05/30/17 07:00 INR 1.40 (0.93-1.08) H 05/30/17 07:00 APTT 28.8 Seconds (25.1-36.5) 05/30/17 07:00 - Constitutional Appears: Non-toxic, No Acute Distress - Head Exam Head Exam: ATRAUMATIC, NORMOCEPHALIC - Eye Exam Eye Exam: EOMI, Normal appearance, PERRL - ENT Exam ENT Exam: Mucous Membranes Moist - Neck Exam Neck Exam: Normal Inspection - Respiratory Exam Respiratory Exam: Clear to Ausculation Bilateral, NORMAL BREATHING PATTERN - Cardiovascular Exam Cardiovascular Exam: RRR, +S1, +S2 - GI/Abdominal Exam GI & Abdominal Exam: Soft, Normal Bowel Sounds. absent: Tenderness - Extremities Exam Extremities Exam: absent: Calf Tenderness, Pedal Edema Additional comments: Right groin with [address] Drainage significant decreased. Mild erythema Marked atrophy in bilateral legs. - Back Exam Additional comments: Dressing in place in right back, with bag with small amount of purulent fluid - Neurological Exam Neurological Exam: Alert, Awake, Oriented x3 - Psychiatric Exam Psychiatric exam: Normal Affect, Normal Mood - Skin Skin Exam: Dry, Intact, Normal Color Assessment and Plan - Assessment and Plan (Free Text) Assessment: 41 year old female with a past medical history significant for Hepatitis C and polysubstance abuse who presents with a constant sharp pain in the right buttock radiating to the right leg that started suddenly 8 weeks ago with no inciting event with associated right inguinal mass. Patient being treated for sepsis due to multiple loculated abscesses Plan: 1. Sepsis 2/2 multiple loculated abscesses - No longer meets SIRS criteria - Multiple abscesses drained by IR and surgery; all growing MRSA - Persistent leukocytosis; no fever, tachycardia, tachypnea, or hypotension - MRSA noted in Nares as well - Continue IV Zosyn and Daptomycin 6mg/kg Q24HR per ID - ESR and CRP markedly elevated - MRI of spine significant for signs of early osteomyelitis in L3, multiple small fluid collections in paraspinal musculature - Tylenol PRN for fever; Zofran PRN for N/V - Pain regimen - ID consulted, all recommendations appreciated 2. Anemia - Hgb dropped to 6.9 today; will transfuse one unit and recheck CBC - Continue PO Iron - Peripheral smear pending - Monitor with daily CBC's 3. ASAD - Unchanged - FENa 3.5% - likely intrarenal pathology; possibly ATN 2/2 NSAIDs and/or vancomycin - Continue NS @ 175cc/hr - Renal US shows increased echogenecity, no obstruction, mass, cyst, or abscess noted - Continue to monitor with daily CMP - Nephro consult requested - appreciate recs 4. Thrombocytosis - Likely reactive; improving - Peripheral smear pending - DVT Prophylaxis 5. Back pain and leg weakness - Pain likely 2/2 abscesses and osteomyelitis - Weakness likely 2/2 deconditioning - MRI shows signs of early osteomyelitis in L3, multiple small fluid collections in paraspinal musculature - Ordered PT eval/treat GI Prophylaxis: Protonix DVT Prophylaxis: Heparin and SCD's Patient was seen, examined and discussed with attending, Dr. Dangelo <Glenda Dangelo - Last Filed: 06/06/17 17:01> Objective - Vital Signs/Intake and Output Vital Signs (last 24 hours): Temp Pulse Resp BP Pulse Ox 98.5 F 87 14 137/89 98 06/06/17 15:29 06/06/17 15:29 06/06/17 15:29 06/06/17 15:29 06/06/17 08:14 Intake and Output: 06/06/17 06/06/17 06:59 18:59 Intake Total 860 860 Balance 860 860 - Medications Medications: Current Medications Acetaminophen (Tylenol 325mg Tab) 650 mg PO Q4H PRN PRN Reason: Fever >100.5 F Last Admin: 06/02/17 22:55 Dose: 650 mg Ferrous Sulfate (Feosol) 324 mg PO TID [facility] Last Admin: 06/06/17 13:51 Dose: 324 mg Heparin Sodium (Porcine) (Heparin) 5,000 units SC Q12 [facility] PRN Reason: Protocol Last Admin: 06/06/17 09:32 Dose: 5,000 units Hydromorphone HCl (Dilaudid) 0.5 mg IVP Q4H PRN PRN Reason: Pain, severe (8-10) Last Admin: 06/06/17 13:50 Dose: 0.5 mg Daptomycin 350 mg/ Sodium (Chloride) 100 mls @ 200 mls/hr IV Q24H [facility] Stop: 06/09/17 11:46 Last Admin: 06/06/17 12:57 Dose: 200 mls/hr Sodium Chloride (Sodium Chloride 0.45%) 1,000 mls @ 175 mls/hr IV .Q5H43M [facility] Last Admin: 06/06/17 02:30 Dose: 175 mls/hr Multi-Ingredient Cream (Hydrocerin Cream) 0 ea TOP DAILY PRN PRN Reason: DRY SKIN Ondansetron HCl (Zofran Inj) 4 mg IVP Q4H PRN PRN Reason: Nausea/Vomiting Oxycodone/Acetaminophen (Percocet 10/325 Mg Tab) 1 tab PO Q6H PRN PRN Reason: Pain, moderate (4-7) Last Admin: 06/06/17 16:00 Dose: 1 tab Pantoprazole Sodium (Protonix Ec Tab) 40 mg PO ACB [facility] Last Admin: 06/06/17 08:14 Dose: 40 mg Polyethylene Glycol (Miralax) 17 gm PO DAILY [facility] Last Admin: 06/06/17 09:33 Dose: 17 gm Potassium Chloride (K-Dur 20 Meq Er Tab) 20 meq PO BRK [facility] Last Admin: 06/06/17 13:51 Dose: 20 meq - Labs Labs: 06/06/17 05:45 06/06/17 05:45 PT 16.2 SECONDS (9.4-12.5) H 05/30/17 07:00 INR 1.40 (0.93-1.08) H 05/30/17 07:00 APTT 28.8 Seconds (25.1-36.5) 01/26/18 07:00 Attending/Attestation - Attestation I have personally seen and examined this patient.: Yes I have fully participated in the care of the patient.: Yes I have reviewed all pertinent clinical information, including history, physical exam and plan: Yes Notes (Text): I have seen and examined the patient at bedside. Agree with the progress note with the following additions/ exceptions: Briefly this is 41 year old female with history of Hep C (known and untreated), breast augmentation surgery and polysubstance abuse who was admitted for evaluation of right buttock pain which was radiating to right leg with associated right inguinal mass which she noticed [address] chest abdomen and pelvis showed multiple necrotic masses in right thigh, pelvic and subhepatic area. She underwent CT-guided aspiration of right subhepatic abscess and now has drain in place. She also had I&D of right thigh abscess and 600 cc of pus was drained. Wound culture grew MRSA. Repeat CT revealed persistent fluid collections in right psoas and right piriformis muscle. Patient underwent IR drainage and 10 cc of purulent fluid was removed from gluteal abscess. Discussed with surgery team. There is no further plan for aspiration. Also has acute kidney injury. Will continue IVF. Patient was on vancomycin which was discontinued. She was also given few doses of toradol prior to surgery. She was started on zosyn and daptomycin. MRI spine revealed probable early osteomyelitis of L3. Plan to continue atleast 6 weeks of daptomycin. Plan for possible rehab although patient is refusing that. HIV negative. Continue iron for anemia. Upon discharge patient will follow up with PMD of choice. Dr Glenda Dangelo
[2017-06-06] MEDS: Potassium Chloride 20 mEq ER Tab PO SCH (13:51)
--- NOTE | 2017-06-06 14:59 | CP.PCM.PN ---
Subjective - Date & Time of Evaluation Date of Evaluation: 06/06/17 Time of Evaluation: 13:10 - Subjective Subjective: Resting comfortably in bed, no fevers, not in distress. Objective - Vital Signs/Intake and Output Vital Signs (last 24 hours): Temp Pulse Resp BP Pulse Ox 98.2 F 85 20 120/80 98 06/06/17 08:14 06/06/17 08:14 06/06/17 08:14 06/06/17 08:14 06/06/17 08:14 Intake and Output: 06/06/17 06/06/17 06:59 18:59 Intake Total 860 Balance 860 - Medications Medications: Current Medications Acetaminophen (Tylenol 325mg Tab) 650 mg PO Q4H PRN PRN Reason: Fever >100.5 F Last Admin: 06/02/17 22:55 Dose: 650 mg Ferrous Sulfate (Feosol) 324 mg PO TID [facility] Last Admin: 06/06/17 09:32 Dose: 324 mg Heparin Sodium (Porcine) (Heparin) 5,000 units SC Q12 [facility] PRN Reason: Protocol Last Admin: 06/06/17 09:32 Dose: 5,000 units Hydromorphone HCl (Dilaudid) 0.5 mg IVP Q4H PRN PRN Reason: Pain, severe (8-10) Last Admin: 06/06/17 09:42 Dose: 0.5 mg Daptomycin 350 mg/ Sodium (Chloride) 100 mls @ 200 mls/hr IV Q24H [facility] Stop: 06/09/17 11:46 Last Admin: 06/05/17 13:42 Dose: 200 mls/hr Sodium Chloride (Sodium Chloride 0.45%) 1,000 mls @ 175 mls/hr IV .Q5H43M [facility] Last Admin: 06/06/17 02:30 Dose: 175 mls/hr Multi-Ingredient Cream (Hydrocerin Cream) 0 ea TOP DAILY PRN PRN Reason: DRY SKIN Ondansetron HCl (Zofran Inj) 4 mg IVP Q4H PRN PRN Reason: Nausea/Vomiting Oxycodone/Acetaminophen (Percocet 10/325 Mg Tab) 1 tab PO Q6H PRN PRN Reason: Pain, moderate (4-7) Last Admin: 06/06/17 08:20 Dose: 1 tab Pantoprazole Sodium (Protonix Ec Tab) 40 mg PO ACB [facility] Last Admin: 06/06/17 08:14 Dose: 40 mg Polyethylene Glycol (Miralax) 17 gm PO DAILY [facility] Last Admin: 06/06/17 09:33 Dose: 17 gm - Labs Labs: 06/06/17 05:45 06/06/17 05:45 PT 16.2 SECONDS (9.4-12.5) H 05/30/17 07:00 INR 1.40 (0.93-1.08) H 05/30/17 07:00 APTT 28.8 Seconds (25.1-36.5) 05/30/17 07:00 - Constitutional Appears: Chronically Ill - Head Exam Head Exam: NORMAL INSPECTION - Neck Exam Neck Exam: absent: Meningismus - Respiratory Exam Respiratory Exam: Decreased Breath Sounds - Cardiovascular Exam Cardiovascular Exam: +S1, +S2 - GI/Abdominal Exam GI & Abdominal Exam: Soft. absent: Tenderness Assessment and Plan - Assessment and Plan (Free Text) Plan: Assessment right inguinal mass with necrotic masses also found in the iliacus and ilipsoas muscles, S/P I and D and evacuation of pus growing MRSA - also now with probable L3 vertebral osteomyelitis Hepatitis C polysubstance abuse S/P breast augmentation surgery Plan continue Daptomycin - will need prolonged antibiotics (at least 6 weeks but maybe even more) with weekly ESR, CRP, CBC, CMP, CPK levels - lumbar MRI showing probable early osteomyelitis of the L3 vertebra Hepatitis C should be addressed as an outpatient
[2017-06-06 22:40] LABS: HEMOGLOBIN 8.2 g/dL (12.0-16.0); MEAN CORPUSCULAR HEMOGLOBIN 26.3 pg (25.0-35.0); MEAN CORPUSCULAR HGB CONC 31.7 g/dl (31.0-37.0); MEAN PLATELET VOLUME 8.8 fl (7.0-11.0); RBC 3.12 10^6/uL (3.5-6.1); RED CELL DISTRIBUTION WIDTH 16.3 % (11.5-14.5)
--- NOTE | 2017-06-07 00:47 | CON ---
DATE: 06/06/2017 REASON FOR CONSULTATION: Acute kidney injury. HISTORY OF PRESENTING ILLNESS: A 41-year-old young woman, previously unknown to me, was admitted on 05/29, with complaints of groin abscess, severe pain, increased size of the abscess for one month prior to presentation. Patient underwent I and D of the abscess. She was also found to have multiple abscesses. She was found to have an abscess in the right flank region all the way up to the right kidney. She was found to have a left-sided piriformis collection also. Fluid collection in the right psoas muscle. Patient underwent a CT-guided abscess drainage. Her creatinine at the time of presentation was 0.6. Subsequently, her creatinine elvin to 1.4; for the last several days, creatinine has been stable at 1.6. Consultation is requested for acute kidney injury. PAST MEDICAL AND SURGICAL HISTORY: Hepatitis C, polysubstance abuse, breast augmentation, deviated septum repair, history of cocaine use. FAMILY HISTORY: Noncontributory. SOCIAL HISTORY: Half pack per day smoking, social alcohol use, former cocaine and heroin use. ALLERGIES: NO KNOWN DRUG ALLERGIES. MEDICATIONS: Daptomycin 350 daily, Dilaudid, Feosol, heparin, MiraLax 17 g, Percocet, Protonix, half-normal saline at 175, Tylenol, and Zofran. REVIEW OF SYSTEMS: All systems are reviewed, pertinent positives as mentioned in the history of presenting illness, rest is unremarkable. PHYSICAL EXAMINATION: GENERAL: A thin young woman, lying in bed. VITAL SIGNS: Blood pressure 120/80, heart rate 85, respiratory rate 20, and temperature 98.2. HEENT: Normocephalic, atraumatic, positive pallor. NECK: Supple, no JVD. LUNGS: Bilateral equal air entry, no rales. CARDIAC: S1, S2; regular rate and rhythm; no murmur, no rub. ABDOMEN: Soft, nondistended, nontender, bowel sounds present. EXTREMITIES: No lower extremity edema, positive drain in the right groin, drain in the right upper back. INTAKE AND OUTPUT: Not charted. LABORATORY DATA: WBC 15, hemoglobin 6.9, hematocrit 22, platelets 470, MCV 82.9. Sodium 139, potassium 3.5, chloride 107, CO2 of 25. BUN 11, creatinine 1.6, glucose 78, calcium 8.8. AST 19, ALT 22, albumin 1.9. Corrected calcium is 10.2. Urinalysis: Yellow, clear, pH 6.0, specific less than 1.005, blood trace intact, leukocyte esterase trace. Urine sodium 94, urine creatinine 27. Urine positive for opiates. ASSESSMENT: 1. Acute kidney injury, suspect acute tubular necrosis in the setting of severe sepsis/multiple abscess formation. 2. Severe anemia. 3. Hepatitis C. 4. History of drug abuse. PLAN: 1. FENa is greater than 1, patient has ATN.. Timeline for recovery of ATN about 7 to 11 days. Expect to see renal recovery soon. 2. Severe anemia, low iron stores, elevated ferritin because of inflammation. Recommend IV Venofer if okay with ID. 3. Replace potassium. 4. Avoid nephrotoxins. Thank you for the courtesy of this consultation. We will follow this patient as needed. Smiley Sheffield MD
[2017-06-07] MEDS: Oxycodone/Acetaminophen 10/325 mg Tab PO PRN ×3 (05:25→22:46)
[2017-06-07 07:18] LABS: BASO # 0.04 K/mm3 (0.0-2.0); BASO % 0.2 % (0.0-3.0); EOS # 0.3 (0.0-0.7); EOS % 1.7 % (1.5-5.0); GRAN # 12.63 (1.4-6.5); GRAN % 76.2 % (50.0-68.0); HEMOGLOBIN 8.4 g/dL (12.0-16.0); LYMPH # 2.8 (1.2-3.4); LYMPH % 16.6 % (22.0-35.0); MEAN CELL VOLUME 83.8 fl (80.0-105.0); MEAN CORPUSCULAR HEMOGLOBIN 26.3 pg (25.0-35.0); MEAN CORPUSCULAR HGB CONC 31.3 g/dl (31.0-37.0); MEAN PLATELET VOLUME 8.9 fl (7.0-11.0); MONO # 0.9 (0.1-0.6); MONO % 5.3 % (1.0-6.0); RBC 3.2 10^6/uL (3.5-6.1); RED CELL DISTRIBUTION WIDTH 16.6 % (11.5-14.5); WHITE BLOOD COUNT 16.6 10^3/ul (4.5-11.0)
[2017-06-07 07:26] LABS: ALB/GLOB RATIO 0.6 (1.1-1.8); ALBUMIN 2.2 g/dL (3.0-4.8); CALCIUM 8.9 mg/dL (8.4-10.5)
[2017-06-07] MEDS: Pantoprazole 40 mg EC Tab PO SCH (08:27)
[2017-06-07] MEDS: Potassium Chloride 20 mEq ER Tab PO SCH (08:27)
[2017-06-07] MEDS: Sodium Chloride 0.45% 1,000 ML IV SCH ×3 (09:53→22:50)
[2017-06-07] MEDS: POLYETHYLENE GLYCOL 3350 17 GM/Dose PACKET PO SCH (09:54)
--- NOTE | 2017-06-07 11:39 | CP.PCM.PN ---
<Yaima Francisco - Last Filed: 06/07/17 17:52> Subjective - Date & Time of Evaluation Date of Evaluation: 06/07/17 Time of Evaluation: 07:30 - Subjective Subjective: Yaima Francisco DO PGY1 - IM Progress Note Patient seen and examined at bedside. No acute events overnight. Patient reports slight improvement overall, though now complaining of a shooting pain in her back, near the site of the drain. She reports slight improvement in her other pains. She is getting up and going to the bathroom on her own, though with difficulty. Patient has a walker at home, and will ask someone to bring to the hospital. She denies any chest pain, shortness of breath, fevers, chills, nausea, vomiting. No diarrhea or constipation. Objective - Vital Signs/Intake and Output Vital Signs (last 24 hours): Temp Pulse Resp BP Pulse Ox 98.9 F 82 19 126/80 99 06/07/17 08:00 06/07/17 08:00 06/07/17 08:00 06/07/17 08:00 06/07/17 08:00 Intake and Output: 06/07/17 06/07/17 06:59 18:59 Intake Total 900 Balance 900 - Medications Medications: Current Medications Acetaminophen (Tylenol 325mg Tab) 650 mg PO Q4H PRN PRN Reason: Fever >100.5 F Last Admin: 06/02/17 22:55 Dose: 650 mg Ferrous Sulfate (Feosol) 324 mg PO TID [facility] Last Admin: 06/07/17 09:54 Dose: 324 mg Heparin Sodium (Porcine) (Heparin) 5,000 units SC Q12 [facility] PRN Reason: Protocol Last Admin: 06/07/17 09:54 Dose: Not Given Daptomycin 350 mg/ Sodium (Chloride) 100 mls @ 200 mls/hr IV Q24H [facility] Stop: 06/09/17 11:46 Last Admin: 06/06/17 12:57 Dose: 200 mls/hr Sodium Chloride (Sodium Chloride 0.45%) 1,000 mls @ 175 mls/hr IV .Q5H43M [facility] Last Admin: 06/07/17 09:53 Dose: 175 mls/hr Morphine Sulfate (Morphine) 2 mg IVP Q4H PRN PRN Reason: Pain, severe (8-10) Multi-Ingredient Cream (Hydrocerin Cream) 0 ea TOP DAILY PRN PRN Reason: DRY SKIN Ondansetron HCl (Zofran Inj) 4 mg IVP Q4H PRN PRN Reason: Nausea/Vomiting Oxycodone/Acetaminophen (Percocet 10/325 Mg Tab) 1 tab PO Q6H PRN PRN Reason: Pain, moderate (4-7) Last Admin: 06/07/17 05:25 Dose: 1 tab Pantoprazole Sodium (Protonix Ec Tab) 40 mg PO ACB [facility] Last Admin: 06/07/17 08:27 Dose: 40 mg Polyethylene Glycol (Miralax) 17 gm PO DAILY [facility] Last Admin: 06/07/17 09:54 Dose: 17 gm Potassium Chloride (K-Dur 20 Meq Er Tab) 20 meq PO BRK [facility] Last Admin: 06/07/17 08:27 Dose: 20 meq - Labs Labs: 06/07/17 06:30 06/07/17 06:30 PT 16.2 SECONDS (9.4-12.5) H 05/30/17 07:00 INR 1.40 (0.93-1.08) H 05/30/17 07:00 APTT 28.8 Seconds (25.1-36.5) 05/30/17 07:00 - Constitutional Appears: Non-toxic, No Acute Distress - Head Exam Head Exam: ATRAUMATIC, NORMOCEPHALIC - Eye Exam Eye Exam: EOMI, Normal appearance, PERRL - ENT Exam ENT Exam: Mucous Membranes Moist - Neck Exam Neck Exam: Normal Inspection - Respiratory Exam Respiratory Exam: Clear to Ausculation Bilateral, NORMAL BREATHING PATTERN - Cardiovascular Exam Cardiovascular Exam: RRR, +S1, +S2 - GI/Abdominal Exam GI & Abdominal Exam: Soft, Normal Bowel Sounds. absent: Tenderness - Extremities Exam Extremities Exam: absent: Calf Tenderness, Pedal Edema - Back Exam Additional comments: Drain in place; surrounding skin normal; mildly tender - Neurological Exam Neurological Exam: Alert, Awake, Oriented x3 - Psychiatric Exam Psychiatric exam: Normal Affect, Normal Mood - Skin Skin Exam: Dry, Intact, Normal Color Assessment and Plan - Assessment and Plan (Free Text) Assessment: 41 year old female with a past medical history significant for Hepatitis C and polysubstance abuse who presents with a constant sharp pain in the right buttock radiating to the right leg that started suddenly 8 weeks ago with no inciting event with associated right inguinal mass. Patient being treated for sepsis due to multiple loculated abscesses and L3 early osteomyelitis Plan: 1. Multiple loculated abscesses - Multiple abscesses drained by IR and surgery; all growing MRSA - MRI of spine significant for signs of early osteomyelitis in L3, multiple small fluid collections in paraspinal musculature - ESR and CRP markedly elevated - Persistent leukocytosis; no fever, tachycardia, tachypnea, or hypotension - MRSA noted in Nares as well - Continue IV Daptomycin 6mg/kg Q24HR per ID; Zosyn discontinued - Tylenol PRN for fever; Zofran PRN for N/V - Pain regimen; changed dilaudid to morphine - Patient will require prolonged course of IV antibiotics; patient cannot be discharged to home with indwelling IV access considering history of polysubstance abuse; will need to be sent to rehab facility for continue IV antibiotics as well as severe deconditioning and weakness - ID consulted, all recommendations appreciated 2. Anemia - s/p 1u PRBC with appropriate elevation in H&H. - Patient started on IV iron per nephro - Monitor with daily CBC's 3. ASAD - Unchanged - FENa 3.5% - Likely ATN, which has 7-11 day course before recovery; per nephro - Continue NS @ 175cc/hr - Continue to monitor with daily CMP - Nephro consult requested - appreciate recs 4. Thrombocytosis - Likely reactive; improving - DVT Prophylaxis 5. Back pain and leg weakness - Pain likely 2/2 abscesses and osteomyelitis - Weakness likely 2/2 deconditioning - Ordered PT eval/treat - Encouraged OOB to chair and ambulation - Patient has walker at home; will request family to bring water to the hospital GI Prophylaxis: Protonix DVT Prophylaxis: Heparin and SCD's Patient was seen, examined and discussed with attending, Dr. Dangelo <Glenda Dagnelo - Last Filed: 06/15/17 21:40> Objective - Vital Signs/Intake and Output Vital Signs (last 24 hours): Temp Pulse Resp BP Pulse Ox 98 F 80 18 124/81 99 06/11/17 15:56 06/11/17 15:56 06/11/17 15:56 06/11/17 15:56 06/11/17 15:56 - Labs Labs: 06/12/17 06:30 06/12/17 06:30 PT 16.2 SECONDS (9.4-12.5) H 05/30/17 07:00 INR 1.40 (0.93-1.08) H 05/30/17 07:00 APTT 28.8 Seconds (25.1-36.5) 05/30/17 07:00 Attending/Attestation - Attestation I have personally seen and examined this patient.: Yes I have fully participated in the care of the patient.: Yes I have reviewed all pertinent clinical information, including history, physical exam and plan: Yes Notes (Text): I have seen and examined the patient at bedside. Agree with the progress note with the following additions/ exceptions: Briefly this is 41 year old female with history of Hep C (known and untreated), breast augmentation surgery and polysubstance abuse who was admitted for evaluation of right buttock pain which was radiating to right leg with associated right inguinal mass which she noticed [address] chest abdomen and pelvis showed multiple necrotic masses in right thigh, pelvic and subhepatic area. She underwent CT-guided aspiration of right subhepatic abscess and now has drain in place. She also had I&D of right thigh abscess and 600 cc of pus was drained. Wound culture grew MRSA. Repeat CT revealed persistent fluid collections in right psoas and right piriformis muscle. Patient underwent IR drainage and 10 cc of purulent fluid was removed from gluteal abscess. Discussed with surgery team. There is no further plan for aspiration. Also has acute kidney injury. Will continue IVF. Patient was on vancomycin which was discontinued. She was also given few doses of toradol prior to surgery. Continue zosyn and daptomycin. MRI spine revealed probable early osteomyelitis of L3. Plan to continue atleast 6 weeks of daptomycin. Plan for rehab and now patient is agreeing to that. HIV negative. Continue iron for anemia. Upon discharge patient will follow up with PMD of choice. Dr Glenda Dangelo
[2017-06-07] MEDS: Morphine 5 MG/ML SYRINGE IVP PRN ×3 (13:13→21:08)
--- NOTE | 2017-06-07 13:54 | CP.PCM.PN ---
Subjective - Date & Time of Evaluation Date of Evaluation: 06/07/17 Time of Evaluation: 07:40 - Subjective Subjective: Surgery Progress note. Dr. Calvillo Pt seen and examined at bedside. No acute events overnight. No N/V/D. Tolerating diet. No F/C. Right lower leg pain improving. Is ambulating within room. No new complaints. Objective - Vital Signs/Intake and Output Vital Signs (last 24 hours): Temp Pulse Resp BP Pulse Ox 98.9 F 82 19 126/80 99 06/07/17 08:00 06/07/17 08:00 06/07/17 08:00 06/07/17 08:00 06/07/17 08:00 Intake and Output: 06/07/17 06/07/17 06:59 18:59 Intake Total 900 Balance 900 - Medications Medications: Current Medications Acetaminophen (Tylenol 325mg Tab) 650 mg PO Q4H PRN PRN Reason: Fever >100.5 F Last Admin: 06/02/17 22:55 Dose: 650 mg Ferrous Sulfate (Feosol) 324 mg PO TID [facility] Last Admin: 06/07/17 13:13 Dose: 324 mg Heparin Sodium (Porcine) (Heparin) 5,000 units SC Q12 [facility] PRN Reason: Protocol Last Admin: 06/07/17 09:54 Dose: Not Given Daptomycin 350 mg/ Sodium (Chloride) 100 mls @ 200 mls/hr IV Q24H [facility] Stop: 06/09/17 11:46 Last Admin: 06/07/17 13:44 Dose: 200 mls/hr Sodium Chloride (Sodium Chloride 0.45%) 1,000 mls @ 175 mls/hr IV .Q5H43M [facility] Last Admin: 06/07/17 09:53 Dose: 175 mls/hr Iron Sucrose 200 mg/ Sodium (Chloride) 110 mls @ 110 mls/hr IVPB DAILY [facility] Stop: 06/11/17 10:59 Last Admin: 06/07/17 13:45 Dose: 110 mls/hr Morphine Sulfate (Morphine) 2 mg IVP Q4H PRN PRN Reason: Pain, severe (8-10) Last Admin: 06/07/17 13:13 Dose: 2 mg Multi-Ingredient Cream (Hydrocerin Cream) 0 ea TOP DAILY PRN PRN Reason: DRY SKIN Ondansetron HCl (Zofran Inj) 4 mg IVP Q4H PRN PRN Reason: Nausea/Vomiting Oxycodone/Acetaminophen (Percocet 10/325 Mg Tab) 1 tab PO Q6H PRN PRN Reason: Pain, moderate (4-7) Last Admin: 06/07/17 05:25 Dose: 1 tab Pantoprazole Sodium (Protonix Ec Tab) 40 mg PO ACB [facility] Last Admin: 06/07/17 08:27 Dose: 40 mg Polyethylene Glycol (Miralax) 17 gm PO DAILY [facility] Last Admin: 06/07/17 09:54 Dose: 17 gm Potassium Chloride (K-Dur 20 Meq Er Tab) 20 meq PO BRK [facility] Last Admin: 06/07/17 08:27 Dose: 20 meq - Labs Labs: 06/07/17 06:30 06/07/17 06:30 PT 16.2 SECONDS (9.4-12.5) H 05/30/17 07:00 INR 1.40 (0.93-1.08) H 05/30/17 07:00 APTT 28.8 Seconds (25.1-36.5) 05/30/17 07:00 - Constitutional Appears: Non-toxic, No Acute Distress - Head Exam Head Exam: ATRAUMATIC, NORMAL INSPECTION, NORMOCEPHALIC - Eye Exam Eye Exam: EOMI, Normal appearance - ENT Exam ENT Exam: Mucous Membranes Moist - Respiratory Exam Respiratory Exam: NORMAL BREATHING PATTERN. absent: Accessory Muscle Use, Respiratory Distress - Cardiovascular Exam Cardiovascular Exam: absent: JVD - GI/Abdominal Exam GI & Abdominal Exam: Soft. absent: Distended, Firm, Guarding, Rigid, Tenderness , Rebound - Extremities Exam Additional comments: Right inguinal dressing clean, dry and intact. [place] x4 in place. - Neurological Exam Neurological Exam: Alert, Awake, Oriented x3 - Skin Skin Exam: Dry, Intact, Normal Color, Warm Assessment and Plan - Assessment and Plan (Free Text) Assessment: 41yo F s/p R groin I&D of large loculated abscess on 05/31/17. POD7 Wound Culture: MRSA MRI - Possible osteomyelitis Plan: - Pain management - Abx as per ID. Will need terminal system operator antibiotics - Encourage OOBTC. Encourage Ambulation. Recommend PT - Dressing changes as needed: Dry gauzes, ABD pads with tape. Do not remove gia drains x4. - No further surgical intervention at this time Further recs as per Dr. Rajinder Castle PGY1 surgery pager: [phone]
[2017-06-07] MEDS ORDERED: Morphine 2 mg/ml ISec IVP PRN (14:30)
--- NOTE | 2017-06-07 18:07 | PN ---
DATE: 06/07/2017 SUBJECTIVE: Patient is seen lying in bed. She seems to be sleeping comfortably. PHYSICAL EXAMINATION: GENERAL: Young woman lying in bed. VITAL SIGNS: Blood pressure 126/80, heart rate 82, respiratory rate 18, temperature 98.9. LUNGS: Bilateral equal air entry, no rales. EXTREMITIES: No lower extremity edema. INTAKE AND OUTPUT: 1340/not charted. LABORATORY DATA: WBC 16.6, hemoglobin 8.4, hematocrit 27, platelets 511. Sodium 137, potassium 3.9, chloride 106, CO2 of 25, BUN 9, creatinine 1.7, glucose 75, calcium 8.9, AST 15, ALT 23, albumin 2.2. CURRENT MEDICATIONS: Daptomycin 350 q. 24, Feosol, heparin, K-Dur, MiraLax, morphine, Protonix, half-normal saline, Tylenol. ASSESSMENT: 1. Acute kidney injury, acute tubular necrosis in the setting of severe sepsis/multiple abscesses. 2. Anemia, secondary to chronic infection, low iron stores. 3. History of intravenous drug abuse (?). 4. Dependent on pain medication. PLAN: 1. Continue IV fluids. 2. Avoid nephrotoxins. 3. Venofer 200 mg IV piggyback, total of 1 g. Smiley Sheffield MD
[2017-06-08] MEDS: Morphine 5 MG/ML SYRINGE IVP PRN ×6 (02:08→22:20)
[2017-06-08] MEDS: Oxycodone/Acetaminophen 10/325 mg Tab PO PRN ×3 (04:43→19:41)
[2017-06-08] MEDS: Sodium Chloride 0.45% 1,000 ML IV SCH (04:47)
--- NOTE | 2017-06-08 08:09 | PN ---
DATE: 06/07/2017 SUBJECTIVE: The patient is in bed, in no acute distress. PHYSICAL EXAMINATION: VITAL SIGNS: Temperature is 98, blood pressure is 126/80, respiratory rate of 19, heart rate of 82. HEENT: Examination is unremarkable. NECK: Supple. LUNGS: Have decreased breath sounds. HEART: Normal S1, S2. ABDOMEN: Soft. DATA: Laboratory examination reveals a white count of 16,000, hemoglobin of 8. BUN is 9, creatinine is 1.7. Procalcitonin is noted. The patient had an MRSA from body fluid that was drawn by Dr. Toro Alvarez MRSA. ASSESSMENT AND PLAN: This s a 41-year-old female, seen earlier today in room 570, bed 2, with right inguinal mass; necrotic mass, iliopsoas muscle, status post incision and drainage with L3 vertebral osteomyelitis in a patient with hepatitis C; polysubstance abuse; breast augmentation surgery. We will continue daptomycin. We will need at least 6 weeks, perhaps 8 weeks based on a weekly CBC, SMA-18, sedimentation rate, C-reactive protein, CPK, , currently on daptomycin and we will follow up with you. Daniel Yancey MD
--- NOTE | 2017-06-08 08:43 | CP.PCM.PN ---
Subjective - Date & Time of Evaluation Date of Evaluation: 06/08/17 Time of Evaluation: 07:05 - Subjective Subjective: Surgery Progress note. Dr. Calvillo Pt seen and examined at bedside. No acute events overnight. States that her pain is improving. Denies any N/V/D. No F/C. No new complaints. Objective - Vital Signs/Intake and Output Vital Signs (last 24 hours): Temp Pulse Resp BP Pulse Ox 98.6 F 86 20 125/76 96 06/08/17 00:00 06/08/17 00:00 06/08/17 00:00 06/08/17 00:00 06/08/17 00:00 Intake and Output: 06/08/17 06/08/17 06:59 18:59 Intake Total 3000 660 Output Total 700 3 Balance 2300 657 - Medications Medications: Current Medications Acetaminophen (Tylenol 325mg Tab) 650 mg PO Q4H PRN PRN Reason: Fever >100.5 F Last Admin: 06/02/17 22:55 Dose: 650 mg Ferrous Sulfate (Feosol) 324 mg PO TID [facility] Last Admin: 06/07/17 17:06 Dose: 324 mg Heparin Sodium (Porcine) (Heparin) 5,000 units SC Q12 [facility] PRN Reason: Protocol Last Admin: 06/07/17 21:28 Dose: 5,000 units Daptomycin 350 mg/ Sodium (Chloride) 100 mls @ 200 mls/hr IV Q24H [facility] Stop: 06/09/17 11:46 Last Admin: 06/07/17 13:44 Dose: 200 mls/hr Sodium Chloride (Sodium Chloride 0.45%) 1,000 mls @ 175 mls/hr IV .Q5H43M [facility] Last Admin: 06/08/17 04:47 Dose: 175 mls/hr Iron Sucrose 200 mg/ Sodium (Chloride) 110 mls @ 110 mls/hr IVPB DAILY [facility] Stop: 06/11/17 10:59 Last Admin: 06/07/17 13:45 Dose: 110 mls/hr Morphine Sulfate (Morphine) 2 mg IVP Q4H PRN PRN Reason: Pain, severe (8-10) Last Admin: 06/08/17 06:25 Dose: 2 mg Multi-Ingredient Cream (Hydrocerin Cream) 0 ea TOP DAILY PRN PRN Reason: DRY SKIN Ondansetron HCl (Zofran Inj) 4 mg IVP Q4H PRN PRN Reason: Nausea/Vomiting Oxycodone/Acetaminophen (Percocet 10/325 Mg Tab) 1 tab PO Q6H PRN PRN Reason: Pain, moderate (4-7) Last Admin: 06/08/17 04:43 Dose: 1 tab Pantoprazole Sodium (Protonix Ec Tab) 40 mg PO ACB [facility] Last Admin: 06/07/17 08:27 Dose: 40 mg Polyethylene Glycol (Miralax) 17 gm PO DAILY [facility] Last Admin: 06/07/17 09:54 Dose: 17 gm Potassium Chloride (K-Dur 20 Meq Er Tab) 20 meq PO BRK [facility] Last Admin: 06/07/17 08:27 Dose: 20 meq - Labs Labs: 06/07/17 06:30 06/07/17 06:30 PT 16.2 SECONDS (9.4-12.5) H 05/30/17 07:00 INR 1.40 (0.93-1.08) H 05/30/17 07:00 APTT 28.8 Seconds (25.1-36.5) 05/30/17 07:00 - Constitutional Appears: Well, Non-toxic, No Acute Distress - Head Exam Head Exam: ATRAUMATIC, NORMAL INSPECTION, NORMOCEPHALIC - Eye Exam Eye Exam: EOMI, Normal appearance - ENT Exam ENT Exam: Mucous Membranes Moist - Respiratory Exam Respiratory Exam: NORMAL BREATHING PATTERN. absent: Accessory Muscle Use, Respiratory Distress - GI/Abdominal Exam GI & Abdominal Exam: Soft. absent: Distended, Firm, Guarding, Rigid, Tenderness , Rebound - Extremities Exam Extremities Exam: absent: Calf Tenderness Additional comments: Right groin dressing replaced. [place] x4 in place. Drainage noted. Right back IR drain in place. - Neurological Exam Neurological Exam: Alert, Awake, Oriented x3 - Psychiatric Exam Psychiatric exam: Normal Affect, Normal Mood Assessment and Plan - Assessment and Plan (Free Text) Assessment: 41yo F s/p I&D of large loculated right groin abscess on 05/31/17. POD8 Wound Cx: MRSA MRI: possible osteo of L3 Plan: - Pain management - Abx as per ID. Will need intermediate frame tender antibiotics - Dressing changes as needed: Dry gauzes, ABD pads with tape. Do not remove gia drains x4. - Plan to remove one gia drain tomorrow at bedside by surgery team - No further surgical intervention at this time - Encourage OOBTC. Encourage Ambulation Further recs as per Dr. Rajinder Castle PGY1 surgery pager: [phone]
[2017-06-08] MEDS: Potassium Chloride 20 mEq ER Tab PO SCH (09:19)
[2017-06-08] MEDS: Pantoprazole 40 mg EC Tab PO SCH (09:19)
[2017-06-08] MEDS: POLYETHYLENE GLYCOL 3350 17 GM/Dose PACKET PO SCH ×2 (09:21→10:34)
[2017-06-08 10:19] LABS: ALB/GLOB RATIO 0.6 (1.1-1.8); ALBUMIN 2.1 g/dL (3.0-4.8); CALCIUM 8.8 mg/dL (8.4-10.5)
[2017-06-08 10:34] LABS: BASO # 0.02 K/mm3 (0.0-2.0); BASO % 0.1 % (0.0-3.0); EOS # 0.2 (0.0-0.7); EOS % 1.5 % (1.5-5.0); GRAN # 11.06 (1.4-6.5); GRAN % 80.1 % (50.0-68.0); LYMPH # 1.9 (1.2-3.4); LYMPH % 13.6 % (22.0-35.0); MEAN CELL VOLUME 84.6 fl (80.0-105.0); MEAN CORPUSCULAR HEMOGLOBIN 26.2 pg (25.0-35.0); MONO # 0.7 (0.1-0.6); MONO % 4.7 % (1.0-6.0); RBC 2.98 10^6/uL (3.5-6.1); RED CELL DISTRIBUTION WIDTH 17.3 % (11.5-14.5); WHITE BLOOD COUNT 13.8 10^3/ul (4.5-11.0)
[2017-06-08 10:40] LABS: HEMOGLOBIN 7.8 g/dL (12.0-16.0)
--- NOTE | 2017-06-08 14:13 | CP.PCM.PN ---
<NolnaDoroteomarivelgorge - Last Filed: 06/08/17 14:09> Subjective - Date & Time of Evaluation Date of Evaluation: 06/08/17 Time of Evaluation: 07:30 - Subjective Subjective: Yaima Francisco DO PGY1 - IM Progress Note Patient seen and examined at bedside. No acute events overnight. Patient was also seen ambulating around her room. She reports that pain is improving overall. She denies any chest pain, shortness of breath, abdominal pain, nausea , vomiting, diarrhea, constipation, fever, or chills. Objective - Vital Signs/Intake and Output Vital Signs (last 24 hours): Temp Pulse Resp BP Pulse Ox 98.0 F 80 18 132/87 97 06/08/17 08:00 06/08/17 08:00 06/08/17 08:00 06/08/17 08:00 06/08/17 08:00 Intake and Output: 06/08/17 06/08/17 06:59 18:59 Intake Total 3000 660 Output Total 700 3 Balance 2300 657 - Medications Medications: Current Medications Acetaminophen (Tylenol 325mg Tab) 650 mg PO Q4H PRN PRN Reason: Fever >100.5 F Last Admin: 06/02/17 22:55 Dose: 650 mg Ferrous Sulfate (Feosol) 324 mg PO TID [facility] Last Admin: 06/08/17 09:20 Dose: 324 mg Heparin Sodium (Porcine) (Heparin) 5,000 units SC Q12 NORY PRN Reason: Protocol Last Admin: 06/08/17 09:37 Dose: Not Given Daptomycin 350 mg/ Sodium (Chloride) 100 mls @ 200 mls/hr IV Q24H [facility] Stop: 07/02/17 12:01 Last Admin: 06/08/17 13:50 Dose: 200 mls/hr Iron Sucrose 200 mg/ Sodium (Chloride) 110 mls @ 110 mls/hr IVPB DAILY [facility] Stop: 06/11/17 10:59 Last Admin: 06/08/17 09:19 Dose: 110 mls/hr Sodium Chloride (Sodium Chloride 0.45%) 1,000 mls @ 100 mls/hr IV .Q10H [facility] Morphine Sulfate (Morphine) 2 mg IVP Q4H PRN PRN Reason: Pain, severe (8-10) Last Admin: 06/08/17 10:34 Dose: 2 mg Multi-Ingredient Cream (Hydrocerin Cream) 0 ea TOP DAILY PRN PRN Reason: DRY SKIN Ondansetron HCl (Zofran Inj) 4 mg IVP Q4H PRN PRN Reason: Nausea/Vomiting Oxycodone/Acetaminophen (Percocet 10/325 Mg Tab) 1 tab PO Q6H PRN PRN Reason: Pain, moderate (4-7) Last Admin: 06/08/17 10:46 Dose: 1 tab Pantoprazole Sodium (Protonix Ec Tab) 40 mg PO ACB [facility] Last Admin: 06/08/17 09:19 Dose: 40 mg Polyethylene Glycol (Miralax) 17 gm PO DAILY [facility] Last Admin: 06/08/17 10:34 Dose: Not Given Potassium Chloride (K-Dur 20 Meq Er Tab) 20 meq PO BRK [facility] Last Admin: 06/08/17 09:19 Dose: 20 meq - Labs Labs: 06/08/17 09:30 06/08/17 09:30 PT 16.2 SECONDS (9.4-12.5) H 05/30/17 07:00 INR 1.40 (0.93-1.08) H 05/30/17 07:00 APTT 28.8 Seconds (25.1-36.5) 05/30/17 07:00 - Constitutional Appears: Non-toxic, No Acute Distress - Head Exam Head Exam: ATRAUMATIC, NORMOCEPHALIC - Eye Exam Eye Exam: EOMI, Normal appearance, PERRL - ENT Exam ENT Exam: Mucous Membranes Moist - Neck Exam Neck Exam: Normal Inspection - Respiratory Exam Respiratory Exam: Clear to Ausculation Bilateral, NORMAL BREATHING PATTERN - Cardiovascular Exam Cardiovascular Exam: RRR, +S1, +S2 - GI/Abdominal Exam GI & Abdominal Exam: Soft, Normal Bowel Sounds. absent: Tenderness - Extremities Exam Extremities Exam: absent: Calf Tenderness, Pedal Edema Additional comments: Right groin with gia drains x4, scant drainage noted - Back Exam Additional comments: Drain in place, with more purulent fluid noted than yesterday - Neurological Exam Neurological Exam: Alert, Awake, Oriented x3 - Psychiatric Exam Psychiatric exam: Normal Affect, Normal Mood - Skin Skin Exam: Dry, Intact, Normal Color Assessment and Plan - Assessment and Plan (Free Text) Assessment: 41 year old female with a past medical history significant for Hepatitis C and polysubstance abuse who presents with a constant sharp pain in the right buttock radiating to the right leg that started suddenly 8 weeks ago with no inciting event with associated right inguinal mass. Patient being treated for sepsis due to multiple loculated abscesses and L3 early osteomyelitis Plan: 1. Multiple loculated abscesses - Multiple abscesses drained by IR and surgery; all growing MRSA - MRI of L-spine significant for signs of early osteomyelitis in L3, multiple small fluid collections in paraspinal musculature - ESR and CRP markedly elevated; will recheck tomorrow - Persistent leukocytosis; no fever, tachycardia, tachypnea, or hypotension - Continue IV Daptomycin 6mg/kg Q24HR per ID - Tylenol PRN for fever; Zofran PRN for N/V - Continue Morphine 2mg IV Q4H PRN and Percocet 10/325 Q6H PRN for pain - Patient will require prolonged course of IV antibiotics; patient cannot be discharged to home with indwelling IV access considering history of polysubstance abuse; will need to be sent to rehab facility for continue IV antibiotics as well as severe deconditioning and weakness - ID consulted, all recommendations appreciated 2. Anemia - Stable - Patient started on IV iron per nephro - Monitor with daily CBC's 3. ASAD - Unchanged - FENa 3.5% - Likely ATN, which has 7-11 day course before recovery; per nephro - Continue NS @ 100cc/hr - Continue to monitor with daily CMP - Nephro consult requested - appreciate recs 4. Thrombocytosis - Likely reactive; improving - DVT Prophylaxis 5. Back pain and leg weakness - Pain likely 2/2 abscesses and osteomyelitis - Weakness likely 2/2 deconditioning - Ordered PT eval/treat - Encouraged OOB to chair and ambulation - Patient has walker at home; will request family to bring walker to the hospital GI Prophylaxis: Protonix DVT Prophylaxis: Heparin and SCD's Patient was seen, examined and discussed with attending, Dr. Dangelo <Glenda Dangelo - Last Filed: 06/15/17 21:44> Objective - Vital Signs/Intake and Output Vital Signs (last 24 hours): Temp Pulse Resp BP Pulse Ox 98 F 80 18 124/81 99 06/11/17 15:56 06/11/17 15:56 06/11/17 15:56 06/11/17 15:56 06/11/17 15:56 - Labs Labs: 06/12/17 06:30 06/12/17 06:30 PT 16.2 SECONDS (9.4-12.5) H 05/30/17 07:00 INR 1.40 (0.93-1.08) H 05/30/17 07:00 APTT 28.8 Seconds (25.1-36.5) 05/30/17 07:00 Attending/Attestation - Attestation I have personally seen and examined this patient.: Yes I have fully participated in the care of the patient.: Yes I have reviewed all pertinent clinical information, including history, physical exam and plan: Yes Notes (Text): I have seen and examined the patient at bedside. Agree with the progress note with the following additions/ exceptions: Briefly this is 41 year old female with history of Hep C (known and untreated), breast augmentation surgery and polysubstance abuse who was admitted for evaluation of right buttock pain which was radiating to right leg with associated right inguinal mass which she noticed [address] chest abdomen and pelvis showed multiple necrotic masses in right thigh, pelvic and subhepatic area. She underwent CT-guided aspiration of right subhepatic abscess and now has drain in place. She also had I&D of right thigh abscess and 600 cc of pus was drained. Wound culture grew MRSA. Repeat CT revealed persistent fluid collections in right psoas and right piriformis muscle. Patient underwent IR drainage and 10 cc of purulent fluid was removed from gluteal abscess. Discussed with surgery team. There is no further plan for aspiration. Also has acute kidney injury. Will continue IVF. Patient was on vancomycin which was discontinued. She was also given few doses of toradol prior to surgery. Continue zosyn and daptomycin. MRI spine revealed probable early osteomyelitis of L3. Plan to continue atleast 6 weeks of daptomycin. Plan for rehab and now patient is agreeing to that. Awaiting placement. Blood work will be done weekly.HIV negative. Continue iron for anemia. Upon discharge patient will follow up with PMD of choice. Dr Glenda Dangelo
--- NOTE | 2017-06-08 23:39 | PN ---
DATE: 06/08/2017 SUBJECTIVE: The patient is seen in room 570, bed 2. No fevers and no chills. PHYSICAL EXAMINATION: VITAL SIGNS: Temperature is 98, blood pressure is 130/80, respiratory rate of 18, heart rate of 80. HEENT: Unremarkable. NECK: Supple. LUNGS: Decreased breath sounds. HEART: Normal S1 and S2. ABDOMEN: Soft. LABORATORY EXAMINATION: Reveals white count of 13,800, hemoglobin of 7, platelets of 438. Chemistries revealed the patient has BUN of 8, creatinine of 1.5, and C-reactive protein is 15, sed rate is 115. Urinalysis is noted. Toxicology is noted. Serology is reviewed. ASSESSMENT AND PLAN: This is a 41-year-old female who was seen earlier today with Dr. Cline with a right inguinal necrotic mass in the iliopsoas muscle status post incision and drainage, now with L3 vertebral osteomyelitis in a patient with hepatitis C, currently on daptomycin, we will need six to eight weeks of daptomycin with a weekly CBC, SMA-18, sedimentation rate, C-reactive protein, and creatine phosphokinase once weekly for vertebral osteomyelitis of L3 in addition to multiple collections with methicillin-resistant Staphylococcus aureus in a patient with renal failure, unable to take vancomycin. Daniel Yancey MD
[2017-06-09] MEDS: Sodium Chloride 0.45% 1,000 ML IV SCH ×2 (01:11→13:19)
[2017-06-09] MEDS: Morphine 5 MG/ML SYRINGE IVP PRN ×3 (02:05→09:47)
[2017-06-09] MEDS: Oxycodone/Acetaminophen 10/325 mg Tab PO PRN ×3 (04:14→18:37)
[2017-06-09 06:48] LABS: BASO # 0.01 K/mm3 (0.0-2.0); BASO % 0.1 % (0.0-3.0); EOS # 0.2 (0.0-0.7); EOS % 1.2 % (1.5-5.0); GRAN # 10.11 (1.4-6.5); GRAN % 78.6 % (50.0-68.0); LYMPH # 1.8 (1.2-3.4); LYMPH % 14.2 % (22.0-35.0); MEAN CELL VOLUME 84.7 fl (80.0-105.0); MEAN CORPUSCULAR HEMOGLOBIN 26.5 pg (25.0-35.0); MEAN CORPUSCULAR HGB CONC 31.3 g/dl (31.0-37.0); MEAN PLATELET VOLUME 8.7 fl (7.0-11.0); MONO # 0.8 (0.1-0.6); MONO % 5.9 % (1.0-6.0); RBC 2.75 10^6/uL (3.5-6.1); RED CELL DISTRIBUTION WIDTH 17.5 % (11.5-14.5); WHITE BLOOD COUNT 12.9 10^3/ul (4.5-11.0)
[2017-06-09 07:13] LABS: ALB/GLOB RATIO 0.6 (1.1-1.8); ALBUMIN 2.1 g/dL (3.0-4.8)
[2017-06-09 07:40] LABS: HEMOGLOBIN 7.3 g/dL (12.0-16.0)
[2017-06-09] MEDS: Pantoprazole 40 mg EC Tab PO SCH (08:29)
[2017-06-09] MEDS: Potassium Chloride 20 mEq ER Tab PO SCH (08:29)
[2017-06-09] MEDS ORDERED: Potassium Chloride 20 mEq ER Tab PO ONE (08:54)
--- NOTE | 2017-06-09 09:02 | CP.PCM.PN ---
Subjective - Date & Time of Evaluation Date of Evaluation: 06/09/17 Time of Evaluation: 08:58 - Subjective Subjective: GENERAL SURGERY CONSULT PROGRESS REPORT FOR DR. CUELLAR. Pt seen and examined at bedside. No acute events overnight. Her pain is controlled. Denies any N/V/D. No F/C. No new complaints. Objective - Vital Signs/Intake and Output Vital Signs (last 24 hours): Temp Pulse Resp BP Pulse Ox 98.5 F 78 20 125/82 97 06/09/17 06:00 06/09/17 06:00 06/09/17 06:00 06/09/17 06:00 06/09/17 06:00 Intake and Output: 06/09/17 06/09/17 06:59 18:59 Intake Total 1200 Output Total 70 Balance 1130 - Medications Medications: Current Medications Acetaminophen (Tylenol 325mg Tab) 650 mg PO Q4H PRN PRN Reason: Fever >100.5 F Last Admin: 06/02/17 22:55 Dose: 650 mg Ferrous Sulfate (Feosol) 324 mg PO TID [facility] Last Admin: 06/08/17 18:24 Dose: 324 mg Heparin Sodium (Porcine) (Heparin) 5,000 units SC Q12 NORY PRN Reason: Protocol Last Admin: 06/08/17 21:50 Dose: Not Given Daptomycin 350 mg/ Sodium (Chloride) 100 mls @ 200 mls/hr IV Q24H [facility] Stop: 07/02/17 12:01 Last Admin: 06/08/17 13:50 Dose: 200 mls/hr Iron Sucrose 200 mg/ Sodium (Chloride) 110 mls @ 110 mls/hr IVPB DAILY [facility] Stop: 06/11/17 10:59 Last Admin: 06/08/17 09:19 Dose: 110 mls/hr Sodium Chloride (Sodium Chloride 0.45%) 1,000 mls @ 100 mls/hr IV .Q10H [facility] Last Admin: 06/09/17 01:11 Dose: 100 mls/hr Morphine Sulfate (Morphine) 2 mg IVP Q4H PRN PRN Reason: Pain, severe (8-10) Last Admin: 06/09/17 06:09 Dose: 2 mg Multi-Ingredient Cream (Hydrocerin Cream) 0 ea TOP DAILY PRN PRN Reason: DRY SKIN Ondansetron HCl (Zofran Inj) 4 mg IVP Q4H PRN PRN Reason: Nausea/Vomiting Oxycodone/Acetaminophen (Percocet 10/325 Mg Tab) 1 tab PO Q6H PRN PRN Reason: Pain, moderate (4-7) Last Admin: 06/09/17 04:14 Dose: 1 tab Pantoprazole Sodium (Protonix Ec Tab) 40 mg PO ACB [facility] Last Admin: 06/09/17 08:29 Dose: 40 mg Polyethylene Glycol (Miralax) 17 gm PO DAILY [facility] Last Admin: 06/08/17 10:34 Dose: Not Given Potassium Chloride (K-Dur 20 Meq Er Tab) 20 meq PO BRK [facility] Last Admin: 06/09/17 08:29 Dose: 20 meq Potassium Chloride (K-Dur 20 Meq Er Tab) 20 meq PO ONCE ONE Stop: 06/09/17 08:55 - Labs Labs: 06/09/17 06:30 06/09/17 06:30 PT 16.2 SECONDS (9.4-12.5) H 05/30/17 07:00 INR 1.40 (0.93-1.08) H 05/30/17 07:00 APTT 28.8 Seconds (25.1-36.5) 05/30/17 07:00 - Additional Findings Additional findings: - Constitutional Appears: Well, Non-toxic, No Acute Distress - Head Exam Head Exam: ATRAUMATIC, NORMAL INSPECTION, NORMOCEPHALIC - Eye Exam Eye Exam: EOMI, Normal appearance - ENT Exam ENT Exam: Mucous Membranes Moist - Respiratory Exam Respiratory Exam: NORMAL BREATHING PATTERN. absent: Accessory Muscle Use, Respiratory Distress - GI/Abdominal Exam GI & Abdominal Exam: Soft. absent: Distended, Firm, Guarding, Rigid, Tenderness , Rebound - Extremities Exam Extremities Exam: absent: Calf Tenderness Additional comments: Right back IR drain in place. - Neurological Exam Neurological Exam: Alert, Awake, Oriented x3 - Psychiatric Exam Psychiatric exam: Normal Affect, Normal Mood Assessment and Plan - Assessment and Plan (Free Text) Assessment: 41yo F s/p I&D of large loculated right groin abscess on 05/31/17. POD8 Wound Cx: MRSA MRI: possible osteo of L3 Plan: - [facility] Drains Removed. - Pain management - Abx as per ID. Will need manager long term care IV antibiotics - Dressing changes as needed: Dry gauzes, ABD pads with tape. Do not remove gia drains x4. - No further surgical intervention at this time - Encourage OOBTC. - Encourage Ambulation Further recs as per Dr. Rajinder Garg PGY1 surgery pager: [phone]
[2017-06-09] MEDS: POLYETHYLENE GLYCOL 3350 17 GM/Dose PACKET PO SCH ×2 (09:40→09:55)
[2017-06-09] MEDS ORDERED: Morphine 5 MG/ML SYRINGE IVP PRN ×2 (11:21→14:08)
--- NOTE | 2017-06-09 11:38 | CP.PCM.PN ---
<Yaima Francisco - Last Filed: 06/09/17 16:41> Subjective - Date & Time of Evaluation Date of Evaluation: 06/09/17 Time of Evaluation: 07:30 - Subjective Subjective: Yaima Nolan DO PGY1 - IM Progress Note Patient seen and examined at bedside. No acute events overnight. Patient was seen resting comfortably in bed. She continues to have improvement in her pain; requiring less pain medications. She denies any chest pain, shortness of breath , abdominal pain, nausea, vomiting, diarrhea, constipation, fever, or chills. Objective - Vital Signs/Intake and Output Vital Signs (last 24 hours): Temp Pulse Resp BP Pulse Ox 98.5 F 78 20 125/82 97 06/09/17 06:00 06/09/17 06:00 06/09/17 06:00 06/09/17 06:00 06/09/17 06:00 Intake and Output: 06/09/17 06/09/17 06:59 18:59 Intake Total 1200 Output Total 70 Balance 1130 - Medications Medications: Current Medications Acetaminophen (Tylenol 325mg Tab) 650 mg PO Q4H PRN PRN Reason: Fever >100.5 F Last Admin: 06/02/17 22:55 Dose: 650 mg Ferrous Sulfate (Feosol) 324 mg PO TID [facility] Last Admin: 06/09/17 09:39 Dose: 324 mg Heparin Sodium (Porcine) (Heparin) 5,000 units SC Q12 NORY PRN Reason: Protocol Last Admin: 06/09/17 09:43 Dose: Not Given Daptomycin 350 mg/ Sodium (Chloride) 100 mls @ 200 mls/hr IV Q24H [facility] Stop: 07/02/17 12:01 Last Admin: 06/08/17 13:50 Dose: 200 mls/hr Iron Sucrose 200 mg/ Sodium (Chloride) 110 mls @ 110 mls/hr IVPB DAILY [facility] Stop: 06/11/17 10:59 Last Admin: 06/09/17 09:40 Dose: 110 mls/hr Sodium Chloride (Sodium Chloride 0.45%) 1,000 mls @ 100 mls/hr IV .Q10H [facility] Last Admin: 06/09/17 01:11 Dose: 100 mls/hr Morphine Sulfate (Morphine) 2 mg IVP Q6H PRN PRN Reason: Pain, severe (8-10) Multi-Ingredient Cream (Hydrocerin Cream) 0 ea TOP DAILY PRN PRN Reason: DRY SKIN Ondansetron HCl (Zofran Inj) 4 mg IVP Q4H PRN PRN Reason: Nausea/Vomiting Oxycodone/Acetaminophen (Percocet 10/325 Mg Tab) 1 tab PO Q6H PRN PRN Reason: Pain, moderate (4-7) Last Admin: 06/09/17 04:14 Dose: 1 tab Pantoprazole Sodium (Protonix Ec Tab) 40 mg PO ACB [facility] Last Admin: 06/09/17 08:29 Dose: 40 mg Polyethylene Glycol (Miralax) 17 gm PO DAILY [facility] Last Admin: 06/09/17 09:55 Dose: Not Given Potassium Chloride (K-Dur 20 Meq Er Tab) 20 meq PO BRK [facility] Last Admin: 06/09/17 08:29 Dose: 20 meq - Labs Labs: 06/09/17 06:30 06/09/17 06:30 PT 16.2 SECONDS (9.4-12.5) H 05/30/17 07:00 INR 1.40 (0.93-1.08) H 05/30/17 07:00 APTT 28.8 Seconds (25.1-36.5) 05/30/17 07:00 - Constitutional Appears: Non-toxic, No Acute Distress - Head Exam Head Exam: ATRAUMATIC, NORMOCEPHALIC - Eye Exam Eye Exam: EOMI, Normal appearance, PERRL - ENT Exam ENT Exam: Mucous Membranes Moist - Neck Exam Neck Exam: Normal Inspection - Respiratory Exam Respiratory Exam: Clear to Ausculation Bilateral, NORMAL BREATHING PATTERN - Cardiovascular Exam Cardiovascular Exam: RRR, +S1, +S2 - GI/Abdominal Exam GI & Abdominal Exam: Soft, Normal Bowel Sounds. absent: Tenderness - Extremities Exam Extremities Exam: absent: Calf Tenderness, Pedal Edema Additional comments: Right groin with gia drains x4, scant drainage noted - Back Exam Additional comments: Drain in place, recently emptied, continues to drain - Neurological Exam Neurological Exam: Alert, Awake, Oriented x3 - Psychiatric Exam Psychiatric exam: Normal Affect, Normal Mood - Skin Skin Exam: Dry, Intact, Normal Color Assessment and Plan - Assessment and Plan (Free Text) Assessment: 41 year old female with a past medical history significant for Hepatitis C and polysubstance abuse who presents with a constant sharp pain in the right buttock radiating to the right leg that started suddenly 8 weeks ago with no inciting event with associated right inguinal mass. Patient being treated for sepsis due to multiple loculated abscesses and L3 early osteomyelitis Plan: 1. Disseminated MRSA - Multiple abscesses drained by IR and surgery; all growing MRSA - MRI of L-spine significant for signs of early osteomyelitis in L3, multiple small fluid collections in paraspinal musculature - Repeat ESR and CRP again markedly elevated - Persistent leukocytosis; no fever, tachycardia, tachypnea, or hypotension - Continue IV Daptomycin 6mg/kg Q24HR per ID - Tylenol PRN for fever; Zofran PRN for N/V - Continue Morphine 2mg IV decreased to Q6H PRN and Percocet 10/325 Q6H PRN for pain - Patient will require prolonged course of IV antibiotics; patient cannot be discharged to home with indwelling IV access considering history of polysubstance abuse; will need to be sent to rehab facility for continue IV antibiotics as well as severe deconditioning and weakness; pending placement - ID consulted, all recommendations appreciated 2. Anemia - H&H downtrending - Likely hemodilutional component - Continue IV iron per nephro - Monitor with daily CBC's 3. ASAD - Unchanged - FENa 3.5% - Likely ATN, which has 7-11 day course before recovery; per nephro - Continue NS @ 50cc/hr - decreased, as above - Continue to monitor with daily CMP - Nephro consult requested - appreciate recs 4. Thrombocytosis - Likely reactive; improving - DVT Prophylaxis 5. Back pain and leg weakness - Pain likely 2/2 abscesses and osteomyelitis - Weakness likely 2/2 deconditioning - Ordered PT eval/treat - Encouraged OOB to chair and ambulation - Patient has walker at home; will request family to bring walker to the hospital GI Prophylaxis: Protonix DVT Prophylaxis: Heparin and SCD's Patient was seen, examined and discussed with attending, Dr. Hilton <Cliff Hilton - Last Filed: 06/09/17 17:09> Objective - Vital Signs/Intake and Output Vital Signs (last 24 hours): Temp Pulse Resp BP Pulse Ox 98.5 F 78 20 125/82 97 06/09/17 06:00 06/09/17 06:00 06/09/17 06:00 06/09/17 06:00 06/09/17 06:00 Intake and Output: 06/09/17 06/09/17 06:59 18:59 Intake Total 1200 Output Total 70 Balance 1130 - Medications Medications: Current Medications Acetaminophen (Tylenol 325mg Tab) 650 mg PO Q4H PRN PRN Reason: Fever >100.5 F Last Admin: 06/02/17 22:55 Dose: 650 mg Ferrous Sulfate (Feosol) 324 mg PO TID [facility] Last Admin: 06/09/17 13:18 Dose: 324 mg Heparin Sodium (Porcine) (Heparin) 5,000 units SC Q12 N[facility] PRN Reason: Protocol Last Admin: 06/09/17 09:43 Dose: Not Given Daptomycin 350 mg/ Sodium (Chloride) 100 mls @ 200 mls/hr IV Q24H [facility] Stop: 07/02/17 12:01 Last Admin: 06/09/17 12:27 Dose: 200 mls/hr Iron Sucrose 200 mg/ Sodium (Chloride) 110 mls @ 110 mls/hr IVPB DAILY [facility] Stop: 06/11/17 10:59 Last Admin: 06/09/17 09:40 Dose: 110 mls/hr Sodium Chloride (Sodium Chloride 0.9%) 1,000 mls @ 50 mls/hr IV .Q20H [facility] Morphine Sulfate (Morphine) 2 mg IVP Q6H PRN PRN Reason: Pain, severe (8-10) Multi-Ingredient Cream (Hydrocerin Cream) 0 ea TOP DAILY PRN PRN Reason: DRY SKIN Last Admin: 06/09/17 12:30 Dose: 1 applic Ondansetron HCl (Zofran Inj) 4 mg IVP Q4H PRN PRN Reason: Nausea/Vomiting Oxycodone/Acetaminophen (Percocet 10/325 Mg Tab) 1 tab PO Q6H PRN PRN Reason: Pain, moderate (4-7) Last Admin: 06/09/17 12:29 Dose: 1 tab Pantoprazole Sodium (Protonix Ec Tab) 40 mg PO ACB [facility] Last Admin: 06/09/17 08:29 Dose: 40 mg Polyethylene Glycol (Miralax) 17 gm PO DAILY [facility] Last Admin: 06/09/17 09:55 Dose: Not Given Potassium Chloride (K-Dur 20 Meq Er Tab) 20 meq PO BRK [facility] Last Admin: 06/09/17 08:29 Dose: 20 meq - Labs Labs: 06/09/17 06:30 06/09/17 06:30 PT 16.2 SECONDS (9.4-12.5) H 05/30/17 07:00 INR 1.40 (0.93-1.08) H 05/30/17 07:00 APTT 28.8 Seconds (25.1-36.5) 05/30/17 07:00 Attending/Attestation - Attestation I have personally seen and examined this patient.: Yes I have fully participated in the care of the patient.: Yes I have reviewed all pertinent clinical information, including history, physical exam and plan: Yes Notes (Text): 06/09/17 17:05 Attending note; Patient seen and examined with the resident. Patient is a 41 year old female with history of Hep C (known and untreated), breast augmentation surgery and polysubstance abuse who was admitted for evaluation of right buttock pain which was radiating to right leg with associated right inguinal mass which she noticed [address] chest abdomen and pelvis showed multiple necrotic masses in right thigh, pelvic and subhepatic area. She underwent CT-guided aspiration of right subhepatic abscess and now has drain in place. She also had I&D of right thigh abscess and 600 cc of pus was drained. Wound culture grew MRSA. Repeat CT revealed persistent fluid collections in right psoas and right piriformis muscle. Patient underwent IR drainage and 10 cc of purulent fluid was removed from gluteal abscess. Acute renal failure ; multifactorial. Possible etiologies include sepsis, ATN, medication induced .currently on IV daptomycin . Case discussed with supervisor case loading in detail for discharge planning . Patient needs subacute rehabilitation . Needs to complete 6 weeks of IV anti- biotics therapy for MRSA abscess /L3 vertebral osteomyelitis 3 . Continue IV iron for anemia. Upon discharge patient will follow up with PMD of choice.
--- NOTE | 2017-06-09 14:19 | CP.PCM.PN ---
Subjective - Date & Time of Evaluation Date of Evaluation: 06/09/17 Time of Evaluation: 13:00 - Subjective Subjective: No fevers, not in distress. Objective - Vital Signs/Intake and Output Vital Signs (last 24 hours): Temp Pulse Resp BP Pulse Ox 98.5 F 78 20 125/82 97 06/09/17 06:00 06/09/17 06:00 06/09/17 06:00 06/09/17 06:00 06/09/17 06:00 Intake and Output: 06/09/17 06/09/17 06:59 18:59 Intake Total 1200 Output Total 70 Balance 1130 - Medications Medications: Current Medications Acetaminophen (Tylenol 325mg Tab) 650 mg PO Q4H PRN PRN Reason: Fever >100.5 F Last Admin: 06/02/17 22:55 Dose: 650 mg Ferrous Sulfate (Feosol) 324 mg PO TID [facility] Last Admin: 06/09/17 09:39 Dose: 324 mg Heparin Sodium (Porcine) (Heparin) 5,000 units SC Q12 [facility] PRN Reason: Protocol Last Admin: 06/09/17 09:43 Dose: Not Given Daptomycin 350 mg/ Sodium (Chloride) 100 mls @ 200 mls/hr IV Q24H [facility] Stop: 07/02/17 12:01 Last Admin: 06/08/17 13:50 Dose: 200 mls/hr Iron Sucrose 200 mg/ Sodium (Chloride) 110 mls @ 110 mls/hr IVPB DAILY [facility] Stop: 06/11/17 10:59 Last Admin: 06/09/17 09:40 Dose: 110 mls/hr Sodium Chloride (Sodium Chloride 0.45%) 1,000 mls @ 100 mls/hr IV .Q10H [facility] Last Admin: 06/09/17 01:11 Dose: 100 mls/hr Morphine Sulfate (Morphine) 2 mg IVP Q4H PRN PRN Reason: Pain, severe (8-10) Last Admin: 06/09/17 09:47 Dose: 2 mg Multi-Ingredient Cream (Hydrocerin Cream) 0 ea TOP DAILY PRN PRN Reason: DRY SKIN Ondansetron HCl (Zofran Inj) 4 mg IVP Q4H PRN PRN Reason: Nausea/Vomiting Oxycodone/Acetaminophen (Percocet 10/325 Mg Tab) 1 tab PO Q6H PRN PRN Reason: Pain, moderate (4-7) Last Admin: 06/09/17 04:14 Dose: 1 tab Pantoprazole Sodium (Protonix Ec Tab) 40 mg PO ACB [facility] Last Admin: 06/09/17 08:29 Dose: 40 mg Polyethylene Glycol (Miralax) 17 gm PO DAILY [facility] Last Admin: 06/09/17 09:55 Dose: Not Given Potassium Chloride (K-Dur 20 Meq Er Tab) 20 meq PO BRK [facility] Last Admin: 06/09/17 08:29 Dose: 20 meq - Labs Labs: 06/09/17 06:30 06/09/17 06:30 PT 16.2 SECONDS (9.4-12.5) H 05/30/17 07:00 INR 1.40 (0.93-1.08) H 05/30/17 07:00 APTT 28.8 Seconds (25.1-36.5) 05/30/17 07:00 - Constitutional Appears: Non-toxic, Chronically Ill - Head Exam Head Exam: NORMAL INSPECTION - Neck Exam Neck Exam: absent: Meningismus - Respiratory Exam Respiratory Exam: Decreased Breath Sounds - Cardiovascular Exam Cardiovascular Exam: +S1, +S2 - GI/Abdominal Exam GI & Abdominal Exam: Soft. absent: Tenderness Assessment and Plan - Assessment and Plan (Free Text) Plan: Assessment right inguinal mass with necrotic masses also found in the iliacus and ilipsoas muscles, S/P I and D and evacuation of pus growing MRSA - also now with L3 vertebral osteomyelitis Hepatitis C polysubstance abuse S/P breast augmentation surgery Plan continue Daptomycin - will need prolonged antibiotics (at least 6 weeks but maybe even more) with weekly ESR, CRP, CBC, CMP, CPK levels - lumbar MRI showing probable early osteomyelitis of the L3 vertebra Hepatitis C should be addressed as an outpatient
[2017-06-09] MEDS ORDERED: Magnesium Sulfate 2 GM in Sodium Chloride 0.9% 100 ML IVPB ONE (14:25)
[2017-06-09] MEDS: Sodium Chloride 0.9% 1,000 ML IV SCH (18:37)
[2017-06-09] MEDS: Morphine 2 mg/ml ISec IVP PRN (20:13)
--- NOTE | 2017-06-09 21:17 | PN ---
DATE: 06/09/2017 SUBJECTIVE: The patient is seen lying in bed. She is awake, she is alert. She is comfortable. PHYSICAL EXAMINATION: GENERAL: Young woman, lying in bed. VITAL SIGNS: Blood pressure 125/82, heart rate 78, respiratory rate 20, temperature 98.5. HEENT: Normocephalic, atraumatic. NECK: Supple, no JVD. LUNGS: Bilateral equal air entry, no rales. CARDIAC: S1,S2, regular rate and rhythm, no murmur, no rub. ABDOMEN: Soft, nondistended, nontender, bowel sounds present. EXTREMITIES: No lower extremity edema, positive drain from the right groin and the right side of the back. LABORATORY DATA: WBC 12.9, hemoglobin 7.3, hematocrit 33, platelets 411. Sodium 141, potassium 3.2, chloride 107, CO2 of 25, BUN 7, creatinine 1.4, glucose 75, calcium 9.0, magnesium 1.6. CURRENT MEDICATIONS: Daptomycin 350 daily, Feosol, heparin, Venofer, potassium 20 mEq daily, MiraLax, morphine, Protonix, Tylenol, Zofran. ASSESSMENT: 1. Acute kidney injury, acute tubular necrosis in the setting of severe sepsis, resolving slowly. 2. Hypokalemia. 3. Hypomagnesemia. 4. Multiple abscesses. 5. History of drug abuse. PLAN: 1. Replace potassium and magnesium. 2. Avoid nephrotoxins. 3. Antibiotics as per ID recommendations. 4. Monitor labs. Smiley Sheffield MD
[2017-06-10] MEDS: Oxycodone/Acetaminophen 10/325 mg Tab PO PRN ×4 (00:16→22:34)
[2017-06-10] MEDS: Morphine 2 mg/ml ISec IVP PRN ×4 (02:18→21:01)
[2017-06-10 06:38] LABS: BASO # 0.01 K/mm3 (0.0-2.0); BASO % 0.1 % (0.0-3.0); EOS # 0.2 (0.0-0.7); EOS % 1.6 % (1.5-5.0); GRAN # 8.17 (1.4-6.5); LYMPH # 1.5 (1.2-3.4); LYMPH % 14.6 % (22.0-35.0); MEAN CELL VOLUME 85.1 fl (80.0-105.0); MEAN CORPUSCULAR HEMOGLOBIN 26.2 pg (25.0-35.0); MEAN CORPUSCULAR HGB CONC 30.8 g/dl (31.0-37.0); MEAN PLATELET VOLUME 8.7 fl (7.0-11.0); MONO # 0.6 (0.1-0.6); MONO % 5.7 % (1.0-6.0); RBC 2.75 10^6/uL (3.5-6.1); WHITE BLOOD COUNT 10.5 10^3/ul (4.5-11.0)
[2017-06-10 07:06] LABS: ALB/GLOB RATIO 0.6 (1.1-1.8); ALBUMIN 2.2 g/dL (3.0-4.8); CALCIUM 9.2 mg/dL (8.4-10.5); MAGNESIUM 1.9 mg/dL (1.7-2.2)
[2017-06-10 07:49] LABS: HEMOGLOBIN 7.2 g/dL (12.0-16.0)
--- NOTE | 2017-06-10 09:03 | CP.PCM.PN ---
Subjective - Date & Time of Evaluation Date of Evaluation: 06/10/17 Time of Evaluation: 08:58 - Subjective Subjective: GENERAL SURGERY CONSULT PROGRESS REPORT FOR DR. CUELLAR. Pt seen and examined at bedside. No acute events overnight. Complains of right leg soreness. Denies any N/V/D. No F/C. No additional new complaints. IR drain drained 25 cc of purulent fluid over 12 hours. Objective - Vital Signs/Intake and Output Vital Signs (last 24 hours): Temp Pulse Resp BP Pulse Ox 98.2 F 83 20 126/84 100 06/10/17 06:00 06/10/17 06:00 06/10/17 06:00 06/10/17 06:00 06/10/17 06:00 - Medications Medications: Current Medications Acetaminophen (Tylenol 325mg Tab) 650 mg PO Q4H PRN PRN Reason: Fever >100.5 F Last Admin: 06/02/17 22:55 Dose: 650 mg Ferrous Sulfate (Feosol) 324 mg PO TID [facility] Last Admin: 06/09/17 18:36 Dose: 324 mg Heparin Sodium (Porcine) (Heparin) 5,000 units SC Q12 [facility] PRN Reason: Protocol Last Admin: 06/09/17 21:38 Dose: 5,000 units Daptomycin 350 mg/ Sodium (Chloride) 100 mls @ 200 mls/hr IV Q24H [facility] Stop: 07/02/17 12:01 Last Admin: 06/09/17 12:27 Dose: 200 mls/hr Iron Sucrose 200 mg/ Sodium (Chloride) 110 mls @ 110 mls/hr IVPB DAILY [facility] Stop: 06/11/17 10:59 Last Admin: 06/09/17 09:40 Dose: 110 mls/hr Sodium Chloride (Sodium Chloride 0.9%) 1,000 mls @ 50 mls/hr IV .Q20H [facility] Last Admin: 06/09/17 18:37 Dose: 50 mls/hr Morphine Sulfate (Morphine) 2 mg IVP Q6H PRN PRN Reason: Pain, severe (8-10) Last Admin: 06/10/17 08:20 Dose: 2 mg Multi-Ingredient Cream (Hydrocerin Cream) 0 ea TOP DAILY PRN PRN Reason: DRY SKIN Last Admin: 06/09/17 12:30 Dose: 1 applic Ondansetron HCl (Zofran Inj) 4 mg IVP Q4H PRN PRN Reason: Nausea/Vomiting Oxycodone/Acetaminophen (Percocet 10/325 Mg Tab) 1 tab PO Q6H PRN PRN Reason: Pain, moderate (4-7) Last Admin: 06/10/17 06:21 Dose: 1 tab Pantoprazole Sodium (Protonix Ec Tab) 40 mg PO ACB [facility] Last Admin: 06/09/17 08:29 Dose: 40 mg Polyethylene Glycol (Miralax) 17 gm PO DAILY [facility] Last Admin: 06/09/17 09:55 Dose: Not Given Potassium Chloride (K-Dur 20 Meq Er Tab) 20 meq PO BRK [facility] Last Admin: 06/09/17 08:29 Dose: 20 meq - Labs Labs: 06/10/17 06:20 06/10/17 06:20 PT 16.2 SECONDS (9.4-12.5) H 05/30/17 07:00 INR 1.40 (0.93-1.08) H 05/30/17 07:00 APTT 28.8 Seconds (25.1-36.5) 05/30/17 07:00 - Additional Findings Additional findings: - Constitutional Appears: Well, Non-toxic, No Acute Distress - Head Exam Head Exam: ATRAUMATIC, NORMAL INSPECTION, NORMOCEPHALIC - Eye Exam Eye Exam: EOMI, Normal appearance - ENT Exam ENT Exam: Mucous Membranes Moist - Respiratory Exam Respiratory Exam: NORMAL BREATHING PATTERN. absent: Accessory Muscle Use, Respiratory Distress - GI/Abdominal Exam GI & Abdominal Exam: Soft. absent: Distended, Firm, Guarding, Rigid, Tenderness , Rebound - Extremities Exam Extremities Exam: absent: Calf Tenderness Additional comments: Right back IR drain in place. [facility] Drain x [address] - Neurological Exam Neurological Exam: Alert, Awake, Oriented x3 - Psychiatric Exam Psychiatric exam: Normal Affect, Normal Mood Assessment and Plan - Assessment and Plan (Free Text) Assessment: 41yo F s/p I&D of large loculated right groin abscess on 05/31/17. POD8 Wound Cx: MRSA MRI: possible osteo of L3 Cr-1.4 Hypokalemia at 3.1 Hgb 7.2 IR Drain - 25cc's of purulent fluid Plan: - 2 out of 4 [facility] Drains Removed. - CT Abd/Pelvis and Right Lower Extremity Ordered. Follow Up. - Pain management - Abx as per ID. Will need cylinder loader IV antibiotics - Dressing changes as needed: Dry gauzes, ABD pads with tape. Do not remove IR drains Dressing changed this AM. - Encourage OOBTC. - Encourage Ambulation - PT. Patient is okay to ambulate with PT as long as HgB is above 7.0, there is no tachycardia, and there is no hypotension. - No further surgical intervention at this time. Please feel free to contact us with any questions or concerns. Further recs as per Dr. Rajinder Garg PGY1 surgery pager: [phone]
[2017-06-10] MEDS ORDERED: Potassium Chloride 40 mEq/30 ml LIQ UD PO ONE (10:15)
[2017-06-10] MEDS: POLYETHYLENE GLYCOL 3350 17 GM/Dose PACKET PO SCH (10:46)
[2017-06-10] MEDS: Pantoprazole 40 mg EC Tab PO SCH (10:47)
[2017-06-10] MEDS: Potassium Chloride 20 mEq ER Tab PO SCH ×2 (10:47→11:02)
--- NOTE | 2017-06-10 13:25 | PN ---
DATE: Sharla Sawyer is seen on the floor. Two drains were left in the groin, the one drained superiorly and the one drained posteriorly. The IR drain has drained a total of 130 over 3 days. It is still purulent. We will leave it in place for now. LABORATORY DATA: White count is down to 10 and hemoglobin 7.2. IMPRESSION: This is improving. The abdomen is soft and nontender. She still requires a high amount of pain medicine, but this is consistent with . CAT scan will be repeated and order written for follow p. I do not think she is able to be discharged with an IV in place. Tj Calvillo MD
--- NOTE | 2017-06-10 14:12 | CP.PCM.PN ---
<Michelet Castle - Last Filed: 06/10/17 15:24> Subjective - Date & Time of Evaluation Date of Evaluation: 06/10/17 Time of Evaluation: 07:25 - Subjective Subjective: Medicine Progress note. Dr. Hilton Pt seen and examined at bedside. No acute events overnight. No N/V/D. Tolerating diet. Pain controlled on current regimen. Still having drainage from Right Groin I&D site. No F/C. No new complaints. Objective - Vital Signs/Intake and Output Vital Signs (last 24 hours): Temp Pulse Resp BP Pulse Ox 98.2 F 83 20 126/84 100 06/10/17 06:00 06/10/17 06:00 06/10/17 06:00 06/10/17 06:00 06/10/17 06:00 Intake and Output: 06/10/17 06/10/17 06:59 18:59 Output Total 25 Balance -25 - Medications Medications: Current Medications Acetaminophen (Tylenol 325mg Tab) 650 mg PO Q4H PRN PRN Reason: Fever >100.5 F Last Admin: 06/02/17 22:55 Dose: 650 mg Ferrous Sulfate (Feosol) 324 mg PO TID [facility] Last Admin: 06/10/17 10:47 Dose: 324 mg Heparin Sodium (Porcine) (Heparin) 5,000 units SC Q12 [facility] PRN Reason: Protocol Last Admin: 06/10/17 10:47 Dose: 5,000 units Daptomycin 350 mg/ Sodium (Chloride) 100 mls @ 200 mls/hr IV Q24H [facility] Stop: 07/02/17 12:01 Last Admin: 06/09/17 12:27 Dose: 200 mls/hr Iron Sucrose 200 mg/ Sodium (Chloride) 110 mls @ 110 mls/hr IVPB DAILY [facility] Stop: 06/11/17 10:59 Last Admin: 06/10/17 10:45 Dose: 110 mls/hr Sodium Chloride (Sodium Chloride 0.9%) 1,000 mls @ 50 mls/hr IV .Q20H [facility] Last Admin: 06/09/17 18:37 Dose: 50 mls/hr Morphine Sulfate (Morphine) 2 mg IVP Q6H PRN PRN Reason: Pain, severe (8-10) Last Admin: 06/10/17 08:20 Dose: 2 mg Multi-Ingredient Cream (Hydrocerin Cream) 0 ea TOP DAILY PRN PRN Reason: DRY SKIN Last Admin: 06/09/17 12:30 Dose: 1 applic Ondansetron HCl (Zofran Inj) 4 mg IVP Q4H PRN PRN Reason: Nausea/Vomiting Oxycodone/Acetaminophen (Percocet 10/325 Mg Tab) 1 tab PO Q6H PRN PRN Reason: Pain, moderate (4-7) Last Admin: 06/10/17 06:21 Dose: 1 tab Pantoprazole Sodium (Protonix Ec Tab) 40 mg PO ACB [facility] Last Admin: 06/10/17 10:47 Dose: 40 mg Polyethylene Glycol (Miralax) 17 gm PO DAILY [facility] Last Admin: 06/10/17 10:46 Dose: 17 gm Potassium Chloride (K-Dur 20 Meq Er Tab) 20 meq PO BRK [facility] Last Admin: 06/10/17 11:02 Dose: Not Given - Labs Labs: 06/10/17 06:20 06/10/17 06:20 PT 16.2 SECONDS (9.4-12.5) H 05/30/17 07:00 INR 1.40 (0.93-1.08) H 05/30/17 07:00 APTT 28.8 Seconds (25.1-36.5) 05/30/17 07:00 - Constitutional Appears: Non-toxic, No Acute Distress - Head Exam Head Exam: ATRAUMATIC, NORMAL INSPECTION, NORMOCEPHALIC - Eye Exam Eye Exam: EOMI, Normal appearance - ENT Exam ENT Exam: Mucous Membranes Moist - Cardiovascular Exam Cardiovascular Exam: absent: JVD - GI/Abdominal Exam GI & Abdominal Exam: Soft. absent: Distended, Firm, Guarding, Rigid, Tenderness - Extremities Exam Additional comments: Right groin dressing clean, dry and intact. Jignesh x2 in place. right back IR drain in place. - Neurological Exam Neurological Exam: Alert, Awake, Oriented x3 Assessment and Plan - Assessment and Plan (Free Text) Assessment: 41yo F with PMHx of IVDA, Polysubstance Abuse, Hep C here s/p I&D of large loculated abscesses right groin, right posterior hepatic; Possible Early Osteomyelitis at L3. 1. Disseminated MRSA w/ loculated abscesses - IR drain in place - Surgery I&D of Right groin with Jignesh x4 placed. Now with 2 jignesh removed - ID following - MRI of L Spine with possible early Osteo at L3 - Patient will need at least 6 weeks of IV Abx: - Zyvox 600mg IV q12h x 6 weeks. (Switched today, 06/10/17) - Weekly labs: CBC, CMP, ESR, CRP. (watch for thrombocytopenia in particular) - Follow up with ID, Dr. Yancey, Call for appointment: [phone] - Pain management - Tylenol prn fever - SW assisting with placement to [facility] 2. Anemia - H&H stable - Continue IV iron per nephro - Monitor with daily CBC's 3. ASAD - FENa 3.5% - Likely ATN, which has 7-11 day course before recovery; per nephro - Continue NS @ 50cc/hr - Nephro consult requested - appreciate recs 4. Back pain and leg weakness - Pain likely 2/2 abscesses and osteomyelitis - Weakness likely 2/2 deconditioning - PT eval/treat - Encouraged OOB to chair and ambulation 5. PPx - Protonix - Heparin SC - SCD's Further recs as per Dr. Yobani Castle PGY1 <Cliff Hilton - Last Filed: 06/10/17 16:08> Objective - Vital Signs/Intake and Output Vital Signs (last 24 hours): Temp Pulse Resp BP Pulse Ox 98.2 F 83 20 126/84 100 06/10/17 06:00 06/10/17 06:00 06/10/17 06:00 06/10/17 06:00 06/10/17 06:00 Intake and Output: 06/10/17 06/10/17 06:59 18:59 Output Total 25 Balance -25 - Medications Medications: Current Medications Acetaminophen (Tylenol 325mg Tab) 650 mg PO Q4H PRN PRN Reason: Fever >100.5 F Last Admin: 06/02/17 22:55 Dose: 650 mg Ferrous Sulfate (Feosol) 324 mg PO TID [facility] Last Admin: 06/10/17 15:11 Dose: 324 mg Heparin Sodium (Porcine) (Heparin) 5,000 units SC Q12 [facility] PRN Reason: Protocol Last Admin: 06/10/17 10:47 Dose: 5,000 units Iron Sucrose 200 mg/ Sodium (Chloride) 110 mls @ 110 mls/hr IVPB DAILY [facility] Stop: 06/11/17 10:59 Last Admin: 06/10/17 10:45 Dose: 110 mls/hr Sodium Chloride (Sodium Chloride 0.9%) 1,000 mls @ 50 mls/hr IV .Q20H [facility] Last Admin: 06/09/17 18:37 Dose: 50 mls/hr Linezolid (Zyvox 600mg/300ml D5w) 600 mg in 300 mls @ 200 mls/hr IVPB Q12 [facility] PRN Reason: Protocol Stop: 07/22/17 22:01 Morphine Sulfate (Morphine) 2 mg IVP Q6H PRN PRN Reason: Pain, severe (8-10) Last Admin: 06/10/17 15:11 Dose: 2 mg Multi-Ingredient Cream (Hydrocerin Cream) 0 ea TOP DAILY PRN PRN Reason: DRY SKIN Last Admin: 06/09/17 12:30 Dose: 1 applic Ondansetron HCl (Zofran Inj) 4 mg IVP Q4H PRN PRN Reason: Nausea/Vomiting Oxycodone/Acetaminophen (Percocet 10/325 Mg Tab) 1 tab PO Q6H PRN PRN Reason: Pain, moderate (4-7) Last Admin: 06/10/17 06:21 Dose: 1 tab Pantoprazole Sodium (Protonix Ec Tab) 40 mg PO ACB [facility] Last Admin: 06/10/17 10:47 Dose: 40 mg Polyethylene Glycol (Miralax) 17 gm PO DAILY [facility] Last Admin: 06/10/17 10:46 Dose: 17 gm Potassium Chloride (K-Dur 20 Meq Er Tab) 20 meq PO BRK [facility] Last Admin: 06/10/17 11:02 Dose: Not Given - Labs Labs: 06/10/17 06:20 06/10/17 06:20 PT 16.2 SECONDS (9.4-12.5) H 05/30/17 07:00 INR 1.40 (0.93-1.08) H 05/30/17 07:00 APTT 28.8 Seconds (25.1-36.5) 05/30/17 07:00 Attending/Attestation - Attestation I have personally seen and examined this patient.: Yes I have fully participated in the care of the patient.: Yes I have reviewed all pertinent clinical information, including history, physical exam and plan: Yes Notes (Text): 06/10/17 15:59 Attending note; Patient seen and examined with the resident. Patient is a 41 year old female with history of Hep C (known and untreated), breast augmentation surgery and polysubstance abuse who was admitted for evaluation of right buttock pain which was radiating to right leg with associated right inguinal mass which she noticed [address] chest abdomen and pelvis showed multiple necrotic masses in right thigh, pelvic and subhepatic area. She underwent CT-guided aspiration of right subhepatic abscess and now has drain in place. She also had I&D of right thigh abscess and 600 cc of pus was drained. Wound culture grew MRSA. Repeat CT revealed persistent fluid collections in right psoas and right piriformis muscle. Patient underwent IR drainage and 10 cc of purulent fluid was removed from gluteal abscess. Currently on IV Zyvox. Case discussed with ID in detail. Acute renal failure ; multifactorial. Possible etiologies include sepsis, ATN, medication induced. creatinine improved to 1.4. Case discussed with outpatient case manager in detail for discharge planning . Patient needs subacute rehabilitation . Needs to complete 6 weeks of IV anti- biotics therapy for MRSA abscess /L3 vertebral osteomyelitis 3. anemia; getting IV iron transfusion. Monitor closely. patient is hemodynamically stable. No need for blood transfusion now. Upon discharge patient will follow up with PMD of choice.
--- NOTE | 2017-06-10 14:44 | CT ---
PROCEDURE: CT Abdomen and Pelvis without intravenous contrast HISTORY: Evaluate Abscess COMPARISON: CT 06/02/2017 TECHNIQUE: Without contrast.. Contrast Dose: Radiation dose: Total exam DLP = 507 mGy-cm. This CT exam was performed using one or more of the following dose reduction techniques: Automated exposure control, adjustment of the mA and/or kV according to patient size, and/or use of iterative reconstruction technique. FINDINGS: LOWER THORAX: Small bilateral pleural effusions and bibasilar consolidation LIVER: Unremarkable. No gross lesion or ductal dilatation. GALLBLADDER AND BILE DUCTS: Unremarkable. PANCREAS: Unremarkable. No gross lesion or ductal dilatation. SPLEEN: Unremarkable. ADRENALS: Unremarkable. No mass. KIDNEYS AND URETERS: Unremarkable. No hydronephrosis. No solid mass. VASCULATURE: Unremarkable. No aortic aneurysm. BOWEL: Unremarkable. No obstruction. No gross mural thickening. APPENDIX: Unremarkable. Normal appendix. PERITONEUM: There is a drainage catheter in the right flank adjacent to the right kidney. The fluid collection has completely resolved with no residual. Persistent fluid collections are seen in the right psoas muscle measuring 2 cm in diameter and in the right piriformis muscle measuring 2.2 x 3.3 cm. These findings are unchanged LYMPH NODES: Unremarkable. No enlarged lymph nodes. BLADDER: Unremarkable. REPRODUCTIVE: Unremarkable. BONES: No acute fracture. OTHER FINDINGS: None. IMPRESSION: There is a drainage catheter in the right flank adjacent to the right kidney. The fluid collection has completely resolved with no residual. Persistent fluid collections are seen in the right psoas muscle measuring 2 cm in diameter and in the right piriformis muscle measuring 2.2 x 3.3 cm. These findings are unchanged
--- NOTE | 2017-06-10 17:19 | CP.PCM.PN ---
Subjective - Date & Time of Evaluation Date of Evaluation: 06/10/17 Time of Evaluation: 12:30 - Subjective Subjective: Still with some abdominal and back pain, no fevers. Objective - Vital Signs/Intake and Output Vital Signs (last 24 hours): Temp Pulse Resp BP Pulse Ox 98.2 F 83 20 126/84 100 06/10/17 06:00 06/10/17 06:00 06/10/17 06:00 06/10/17 06:00 06/10/17 06:00 Intake and Output: 06/10/17 06/10/17 06:59 18:59 Output Total 25 Balance -25 - Medications Medications: Current Medications Acetaminophen (Tylenol 325mg Tab) 650 mg PO Q4H PRN PRN Reason: Fever >100.5 F Last Admin: 06/02/17 22:55 Dose: 650 mg Ferrous Sulfate (Feosol) 324 mg PO TID [facility] Last Admin: 06/09/17 18:36 Dose: 324 mg Heparin Sodium (Porcine) (Heparin) 5,000 units SC Q12 [facility] PRN Reason: Protocol Last Admin: 06/09/17 21:38 Dose: 5,000 units Daptomycin 350 mg/ Sodium (Chloride) 100 mls @ 200 mls/hr IV Q24H [facility] Stop: 07/02/17 12:01 Last Admin: 06/09/17 12:27 Dose: 200 mls/hr Iron Sucrose 200 mg/ Sodium (Chloride) 110 mls @ 110 mls/hr IVPB DAILY [facility] Stop: 06/11/17 10:59 Last Admin: 06/09/17 09:40 Dose: 110 mls/hr Sodium Chloride (Sodium Chloride 0.9%) 1,000 mls @ 50 mls/hr IV .Q20H [facility] Last Admin: 06/09/17 18:37 Dose: 50 mls/hr Morphine Sulfate (Morphine) 2 mg IVP Q6H PRN PRN Reason: Pain, severe (8-10) Last Admin: 06/10/17 08:20 Dose: 2 mg Multi-Ingredient Cream (Hydrocerin Cream) 0 ea TOP DAILY PRN PRN Reason: DRY SKIN Last Admin: 06/09/17 12:30 Dose: 1 applic Ondansetron HCl (Zofran Inj) 4 mg IVP Q4H PRN PRN Reason: Nausea/Vomiting Oxycodone/Acetaminophen (Percocet 10/325 Mg Tab) 1 tab PO Q6H PRN PRN Reason: Pain, moderate (4-7) Last Admin: 06/10/17 06:21 Dose: 1 tab Pantoprazole Sodium (Protonix Ec Tab) 40 mg PO ACB [facility] Last Admin: 06/09/17 08:29 Dose: 40 mg Polyethylene Glycol (Miralax) 17 gm PO DAILY [facility] Last Admin: 06/09/17 09:55 Dose: Not Given Potassium Chloride (K-Dur 20 Meq Er Tab) 20 meq PO BRK [facility] Last Admin: 06/09/17 08:29 Dose: 20 meq - Labs Labs: 06/10/17 06:20 06/10/17 06:20 PT 16.2 SECONDS (9.4-12.5) H 05/30/17 07:00 INR 1.40 (0.93-1.08) H 05/30/17 07:00 APTT 28.8 Seconds (25.1-36.5) 05/30/17 07:00 - Constitutional Appears: Chronically Ill - Head Exam Head Exam: NORMAL INSPECTION - Neck Exam Neck Exam: absent: Meningismus - Respiratory Exam Respiratory Exam: Decreased Breath Sounds - Cardiovascular Exam Cardiovascular Exam: +S1, +S2 - GI/Abdominal Exam GI & Abdominal Exam: Soft. absent: Tenderness Assessment and Plan - Assessment and Plan (Free Text) Plan: Assessment right inguinal mass with necrotic masses also found in the iliacus and ilipsoas muscles, S/P I and D and evacuation of pus growing MRSA - also now with L3 vertebral osteomyelitis Hepatitis C polysubstance abuse S/P breast augmentation surgery Plan continue Daptomycin - will need prolonged antibiotics (at least 6 weeks but maybe even more) with weekly ESR, CRP, CBC, CMP, CPK levels - lumbar MRI showing probable early osteomyelitis of the L3 vertebra - may be able to use Zyvox with close attention to platelet count follow up repeat CT A/P Hepatitis C should be addressed as an outpatient
[2017-06-10] MEDS: Linezolid 600 mg in D5W 300 ml 600 MG/300 ML BAG IVPB SCH (22:36)
[2017-06-11] MEDS: Sodium Chloride 0.9% 1,000 ML IV SCH (03:30)
[2017-06-11] MEDS: Morphine 2 mg/ml ISec IVP PRN ×4 (03:37→22:01)
[2017-06-11] MEDS: Oxycodone/Acetaminophen 10/325 mg Tab PO PRN ×3 (07:27→20:06)
[2017-06-11] MEDS: Pantoprazole 40 mg EC Tab PO SCH (07:39)
[2017-06-11 07:46] LABS: BASO # 0.01 K/mm3 (0.0-2.0); BASO % 0.1 % (0.0-3.0); EOS # 0.1 (0.0-0.7); EOS % 1.4 % (1.5-5.0); GRAN # 7.36 (1.4-6.5); GRAN % 76.5 % (50.0-68.0); LYMPH # 1.4 (1.2-3.4); MEAN CELL VOLUME 85.6 fl (80.0-105.0); MEAN CORPUSCULAR HGB CONC 30.4 g/dl (31.0-37.0); MEAN PLATELET VOLUME 8.5 fl (7.0-11.0); MONO # 0.7 (0.1-0.6); RBC 2.77 10^6/uL (3.5-6.1); RED CELL DISTRIBUTION WIDTH 18.3 % (11.5-14.5); WHITE BLOOD COUNT 9.6 10^3/ul (4.5-11.0)
[2017-06-11 07:54] LABS: ALB/GLOB RATIO 0.6 (1.1-1.8); ALBUMIN 2.3 g/dL (3.0-4.8); CALCIUM 9.3 mg/dL (8.4-10.5)
[2017-06-11 07:57] LABS: HEMOGLOBIN 7.2 g/dL (12.0-16.0)
[2017-06-11 08:13] VITALS: RESP 18; O2SAT 99
[2017-06-11] MEDS ORDERED: Potassium Chloride 40 mEq/30 ml LIQ UD PO ONE (08:52)
[2017-06-11] MEDS: POLYETHYLENE GLYCOL 3350 17 GM/Dose PACKET PO SCH (09:52)
[2017-06-11] MEDS: Potassium Chloride 20 mEq ER Tab PO SCH (09:53)
[2017-06-11] MEDS: Linezolid 600 mg in D5W 300 ml 600 MG/300 ML BAG IVPB SCH ×2 (11:12→22:04)
--- NOTE | 2017-06-11 12:35 | CP.PCM.PN ---
Subjective - Date & Time of Evaluation Date of Evaluation: 06/11/17 Time of Evaluation: 12:05 - Subjective Subjective: Comfortable, no fevers. Objective - Vital Signs/Intake and Output Vital Signs (last 24 hours): Temp Pulse Resp BP Pulse Ox 98.5 F 78 18 131/88 99 06/11/17 08:05 06/11/17 08:05 06/11/17 08:05 06/11/17 08:05 06/11/17 08:05 Intake and Output: 06/11/17 06/11/17 06:59 18:59 Intake Total 840 Output Total 25 Balance 815 - Medications Medications: Current Medications Acetaminophen (Tylenol 325mg Tab) 650 mg PO Q4H PRN PRN Reason: Fever >100.5 F Last Admin: 06/02/17 22:55 Dose: 650 mg Ferrous Sulfate (Feosol) 324 mg PO TID [facility] Last Admin: 06/11/17 09:52 Dose: 324 mg Heparin Sodium (Porcine) (Heparin) 5,000 units SC Q12 NORY PRN Reason: Protocol Last Admin: 06/11/17 09:52 Dose: 5,000 units Iron Sucrose 200 mg/ Sodium (Chloride) 110 mls @ 110 mls/hr IVPB DAILY [facility] Stop: 06/11/17 10:59 Last Admin: 06/11/17 09:51 Dose: 110 mls/hr Sodium Chloride (Sodium Chloride 0.9%) 1,000 mls @ 50 mls/hr IV .Q20H [facility] Last Admin: 06/11/17 03:30 Dose: 50 mls/hr Linezolid (Zyvox 600mg/300ml D5w) 600 mg in 300 mls @ 200 mls/hr IVPB Q12 NORY PRN Reason: Protocol Stop: 07/22/17 22:01 Last Admin: 06/10/17 22:36 Dose: 200 mls/hr Morphine Sulfate (Morphine) 2 mg IVP Q6H PRN PRN Reason: Pain, severe (8-10) Last Admin: 06/11/17 09:53 Dose: 2 mg Multi-Ingredient Cream (Hydrocerin Cream) 0 ea TOP DAILY PRN PRN Reason: DRY SKIN Last Admin: 06/09/17 12:30 Dose: 1 applic Ondansetron HCl (Zofran Inj) 4 mg IVP Q4H PRN PRN Reason: Nausea/Vomiting Oxycodone/Acetaminophen (Percocet 10/325 Mg Tab) 1 tab PO Q6H PRN PRN Reason: Pain, moderate (4-7) Last Admin: 06/11/17 07:27 Dose: 1 tab Pantoprazole Sodium (Protonix Ec Tab) 40 mg PO ACB NORY Last Admin: 06/11/17 07:39 Dose: 40 mg Polyethylene Glycol (Miralax) 17 gm PO DAILY [facility] Last Admin: 06/11/17 09:52 Dose: 17 gm Potassium Chloride (K-Dur 20 Meq Er Tab) 20 meq PO BRK NORY Last Admin: 06/11/17 09:53 Dose: Not Given - Labs Labs: 06/11/17 07:35 06/11/17 07:35 PT 16.2 SECONDS (9.4-12.5) H 05/30/17 07:00 INR 1.40 (0.93-1.08) H 05/30/17 07:00 APTT 28.8 Seconds (25.1-36.5) 05/30/17 07:00 - Constitutional Appears: Chronically Ill - Head Exam Head Exam: NORMAL INSPECTION - Neck Exam Neck Exam: absent: Meningismus - Respiratory Exam Respiratory Exam: Decreased Breath Sounds - Cardiovascular Exam Cardiovascular Exam: +S1, +S2 - GI/Abdominal Exam GI & Abdominal Exam: Soft. absent: Tenderness Assessment and Plan - Assessment and Plan (Free Text) Plan: Assessment right inguinal mass with necrotic masses also found in the iliacus and ilipsoas muscles, S/P I and D and evacuation of pus growing MRSA - also now with L3 vertebral osteomyelitis Hepatitis C polysubstance abuse S/P breast augmentation surgery Plan continue Daptomycin - will need prolonged antibiotics (at the very least 6 weeks but it could even be more) with weekly ESR, CRP, CBC, CMP, CPK levels - lumbar MRI showing probable early osteomyelitis of the L3 vertebra - may be able to use Zyvox with close attention to platelet count repeat CT A/P still shows right psoas muscle collections - ideally should be drained Hepatitis C should be addressed as an outpatient
--- NOTE | 2017-06-11 14:45 | CP.PCM.DIS ---
Provider - Provider Date of Admission: 05/29/17 15:53 Attending physician: Cliff Hilton MD Hospital Course - Lab Results Lab Results: Micro Results 05/30/17 17:15 Abscess - Other-Put In Comments Anaerobic Culture - Final NO ANAEROBES ISOLATED. 05/30/17 17:15 Abscess - Other-Put In Comments Fungal Culture - Preliminary NO FUNGUS GROWTH IN 1 WEEK. 05/30/17 17:15 Other: Please Indicate Mycobacterial Culture - Preliminary 06/03/17 17:56 Body Fluid - Other-Put In Comments Body Fluid Culture - Final Methicillin Resistant S Aureus 06/03/17 17:58 Abscess - Other-Put In Comments Anaerobic Culture - Final NO ANAEROBES ISOLATED. 06/03/17 17:58 Abscess - Other-Put In Comments Fungal Culture - Preliminary 05/31/17 11:01 Other: Please Indicate Gram Stain - Final 05/31/17 11:01 Other: Please Indicate Anaerobic Culture - Final NO ANAEROBES ISOLATED. 05/31/17 11:01 Other: Please Indicate Wound Culture - Final Methicillin Resistant S Aureus 05/30/17 17:14 Body Fluid - Other-Put In Comments Body Fluid Culture - Final Methicillin Resistant S Aureus 05/30/17 22:00 Naris MRSA Culture (Admit) - Final MRSA DETECTED 05/30/17 09:34 Urine Urine Culture - Final No Growth (<1,000 CFU/ML) Most Recent Lab Values WBC 9.6 10^3/ul (4.5-11.0) 06/11/17 07:35 RBC 2.77 10^6/uL (3.5-6.1) L 06/11/17 07:35 Hgb 7.2 g/dL (12.0-16.0) L 06/11/17 07:35 Hct 23.7 % (36.0-48.0) L 06/11/17 07:35 MCV 85.6 fl (80.0-105.0) 06/11/17 07:35 MCH 26.0 pg (25.0-35.0) 06/11/17 07:35 MCHC 30.4 g/dl (31.0-37.0) L 06/11/17 07:35 RDW 18.3 % (11.5-14.5) H 06/11/17 07:35 Plt Count 437 10^3/uL (120.0-450.0) 06/11/17 07:35 MPV 8.5 fl (7.0-11.0) 06/11/17 07:35 Gran % 76.5 % (50.0-68.0) H 06/11/17 07:35 Lymph % (Auto) 15.0 % (22.0-35.0) L 06/11/17 07:35 [place] % (Auto) 7.0 % (1.0-6.0) H 06/11/17 07:35 Eos % (Auto) 1.4 % (1.5-5.0) L 06/11/17 07:35 Baso % (Auto) 0.1 % (0.0-3.0) 06/11/17 07:35 Gran # 7.36 (1.4-6.5) H 06/11/17 07:35 Lymph # (Auto) 1.4 (1.2-3.4) 06/11/17 07:35 [place] # (Auto) 0.7 (0.1-0.6) H 06/11/17 07:35 Eos # (Auto) 0.1 (0.0-0.7) 06/11/17 07:35 Baso # (Auto) 0.01 K/mm3 (0.0-2.0) 06/11/17 07:35 Neutrophils % (Manual) 69 % (50.0-70.0) 05/29/17 13:53 Band Neutrophils % 13 % (0-2) H* 05/29/17 13:53 Lymphocytes % (Manual) 12 % (22.0-35.0) L 05/29/17 13:53 Monocytes % (Manual) 5 % (1.0-6.0) 05/29/17 13:53 Myelocytes % 1 % 05/29/17 13:53 Platelet Evaluation High (NORMAL) 05/29/17 13:53 Retic Count 2.88 % (0.5-1.5) H 05/29/17 19:00 ESR 146 mm/hr (0.0-20.0) H 06/09/17 06:30 Haptoglobin 352 mg/dL (43-212) H 05/31/17 08:00 PT 16.2 SECONDS (9.4-12.5) H 05/30/17 07:00 INR 1.40 (0.93-1.08) H 05/30/17 07:00 APTT 28.8 Seconds (25.1-36.5) 05/30/17 07:00 pO2 30 mm/Hg (30-55) 05/29/17 19:19 VBG pH 7.43 (7.32-7.43) 05/29/17 19:19 VBG pCO2 50.0 (40-60) 05/29/17 19:19 VBG HCO3 33.2 mmol/l (21-28) H 05/29/17 19:19 VBG Total CO2 34.7 mmol.L (22-28) H 05/29/17 19:19 VBG O2 Sat (Calc) 62.1 % (40-65) 05/29/17 19:19 VBG Base Excess 7.5 mmol/L (0.0-2.0) H 05/29/17 19:19 VBG Potassium 3.5 mmol/L (3.6-5.2) L 05/29/17 19:19 Sodium 135.0 mmol/L (132-148) 05/29/17 19:19 Chloride 103.0 mmol/L (98-107) 05/29/17 19:19 Glucose 92 mg/dl (65-105) 05/29/17 19:19 Lactate 1.0 mmol/L (0.7-2.1) 05/29/17 19:19 FiO2 21.0 % 05/29/17 19:19 Sodium 141 mmol/L (132-148) 06/11/17 07:35 Potassium 3.3 mmol/L (3.6-5.0) L 06/11/17 07:35 Chloride 106 mmol/L (98-107) 06/11/17 07:35 Carbon Dioxide 28 mmol/L (21-33) 06/11/17 07:35 Anion Gap 11 (10-20) 06/11/17 07:35 BUN 8 mg/dL (7-21) 06/11/17 07:35 Creatinine 1.3 mg/dl (0.7-1.2) H 06/11/17 07:35 Est GFR ( Amer) 54 06/11/17 07:35 Est GFR (Non-Af Amer) 45 06/11/17 07:35 Random Glucose 75 mg/dL (70-110) 06/11/17 07:35 Hemoglobin A1c 5.9 % (4.2-6.5) 05/30/17 07:00 Serum Osmolality 287 mosm/kg (272-300) 06/03/17 06:30 Calcium 9.3 mg/dL (8.4-10.5) 06/11/17 07:35 Phosphorus 4.5 mg/dL (2.5-4.5) 06/03/17 06:30 Iron 14 ug/dL (45-180) L 05/31/17 08:00 TIBC 119 ug/dL (265-497) L 05/31/17 08:00 % Saturation 12 % (20-55) L 05/31/17 08:00 Magnesium 1.9 mg/dL (1.7-2.2) 06/10/17 06:20 Ferritin 509.0 ng/mL 05/31/17 08:00 Total Bilirubin 0.2 mg/dL (0.2-1.3) 06/11/17 07:35 AST 18 U/L (14-36) 06/11/17 07:35 ALT 17 U/L (7-56) 06/11/17 07:35 Alkaline Phosphatase 68 U/L (38-126) 06/11/17 07:35 Lactate Dehydrogenase 227 U/L (333-699) L 05/31/17 08:00 Total Creatine Kinase < 20 U/L (35-230) L 06/06/17 05:45 C-React Prot High Sens > 15.00 mg/L (1.00-3.00) H 06/09/17 06:30 Total Protein 6.3 g/dL (5.8-8.3) 06/11/17 07:35 Albumin 2.3 g/dL (3.0-4.8) L 06/11/17 07:35 Globulin 4.0 gm/dL 06/11/17 07:35 Albumin/Globulin Ratio 0.6 (1.1-1.8) L 06/11/17 07:35 Vitamin B12 555 pg/mL (239-931) 05/31/17 08:00 Folate 4.8 ng/mL 05/31/17 08:00 Procalcitonin 0.22 NG/ML (0.19-0.49) 05/29/17 14:30 TSH 3rd Generation 1.32 mIU/mL (0.46-4.68) 05/30/17 07:00 Venous Blood Potassium 3.5 mmol/L (3.6-5.2) L 05/29/17 19:19 Urine Color Yellow (YELLOW) 06/04/17 23:15 Urine Appearance Clear (CLEAR) 06/04/17 23:15 Urine pH 6.0 (4.7-8.0) 06/04/17 23:15 Ur Specific [place] <= 1.005 (1.005-1.035) 06/04/17 23:15 Urine Protein Negative mg/dL (<30 mg/dL) 06/04/17 23:15 Urine Glucose (UA) Negative mg/dL (NEGATIVE) 06/04/17 23:15 Urine Ketones Negative mg/dL (NEGATIVE) 06/04/17 23:15 Urine Blood Trace-intact (NEGATIVE) H 06/04/17 23:15 Urine Nitrate Negative (NEGATIVE) 06/04/17 23:15 Urine Bilirubin Negative (NEGATIVE) 06/04/17 23:15 Urine Urobilinogen 0.2 E.U./dL (<1 E.U./dL) 06/04/17 23:15 Ur Leukocyte Esterase Trace Cristal/uL (NEGATIVE) H 06/04/17 23:15 Urine RBC 1 - 3 /hpf (0-2) 06/04/17 23:15 Urine WBC 1 - 3 /hpf (0-6) 06/04/17 23:15 Ur Epithelial Cells 3 - 4 /hpf (0-5) 06/04/17 23:15 Urine Bacteria Rare (NEG) 06/04/17 23:15 Urine Other Uyeast 06/04/17 23:15 Ur Random Creatinine 27 mg/dL 06/03/17 20:45 Ur Random Sodium 94 meq/L 06/03/17 20:45 Ur Random Potassium 25.0 meq/L 06/03/17 20:45 Random Vancomycin 32.8 ug/mL (20.0-40.0) 06/04/17 13:10 Urine Opiates Screen Positive (NEGATIVE) H 05/30/17 09:34 Urine Methadone Screen Negative (NEGATIVE) 05/30/17 09:34 Ur Barbiturates Screen Negative (NEGATIVE) 05/30/17 09:34 Ur Phencyclidine Scrn Negative (NEGATIVE) 05/30/17 09:34 Ur Amphetamines Screen Negative (NEGATIVE) 05/30/17 09:34 U Benzodiazepines Scrn Negative (NEGATIVE) 05/30/17 09:34 U Oth Cocaine Metabols Negative (NEGATIVE) 05/30/17 09:34 U Cannabinoids Screen Negative (NEGATIVE) 05/30/17 09:34 RPR Nonreactive (NONREACTIVE) 05/31/17 08:00 C.trachomatis RNA (TMA) Not detected (Not Detected) 06/04/17 23:15 Hepatitis A IgM Ab Negative (NEGATIVE) 05/30/17 07:00 Hep Bs Antigen Negative (NEGATIVE) 05/30/17 07:00 Hep B Core IgM Ab Negative (NEGATIVE) 05/30/17 07:00 Hepatitis C Antibody Reactive (NEGATIVE) 05/30/17 07:00 HIV 1&2 Ag/Ab, 4th Gen Nonreactive (Nonreactive) 05/29/17 14:30 N.gonorrhoeae RNA (TMA) Not detected (Not Detected) 06/04/17 23:15 TB Test (QFT) Nil 0.05 IU/mL 05/31/17 08:00 TB Test Mitogen - Nil 0.31 IU/mL 05/31/17 08:00 TB Test TB - Nil 0.00 IU/mL 05/31/17 08:00 TB Test (QFT) Indeterminate (Negative) H 05/31/17 08:00 Blood Type O POSITIVE 06/06/17 08:30 Blood Type Confirm O POSITIVE 05/31/17 16:19 Antibody Screen Negative 06/06/17 08:30 Crossmatch See Detail 06/06/17 08:30 BBK History Checked Patient has bt 06/06/17 08:30 Discharge Exam - Head Exam Head Exam: NORMAL INSPECTION Discharge Plan - Follow Up Plan Condition: GUARDED Disposition: REHAB FACILITY/REHAB UNIT
[2017-06-11 16:00] VITALS: BP 124/81; PULSE 80; TEMP 98
--- NOTE | 2017-06-11 18:28 | CP.PCM.PN ---
<CorrineMichelet - Last Filed: 06/11/17 18:25> Subjective - Date & Time of Evaluation Date of Evaluation: 06/11/17 Time of Evaluation: 07:20 - Subjective Subjective: Medicine Progress note. Dr. Hilton Pt seen and examined at bedside. No acute events overnight. No Fevers, chills. No Nausea, no vomiting. No Diarrhea. No new complaints. Right groin dressing still draining. Patient is pending placement to [facility] Objective - Vital Signs/Intake and Output Vital Signs (last 24 hours): Temp Pulse Resp BP Pulse Ox 98 F 80 18 124/81 99 06/11/17 15:56 06/11/17 15:56 06/11/17 15:56 06/11/17 15:56 06/11/17 15:56 Intake and Output: 06/11/17 06/11/17 06:59 18:59 Intake Total 840 300 Output Total 25 Balance 815 300 - Medications Medications: Current Medications Acetaminophen (Tylenol 325mg Tab) 650 mg PO Q4H PRN PRN Reason: Fever >100.5 F Last Admin: 06/02/17 22:55 Dose: 650 mg Ascorbic Acid (Vitamin C 500 Mg Tab) 500 mg PO DAILY [facility] Last Admin: 06/11/17 11:15 Dose: 500 mg Ferrous Sulfate (Feosol) 324 mg PO TID [facility] Last Admin: 06/11/17 16:08 Dose: 324 mg Heparin Sodium (Porcine) (Heparin) 5,000 units SC Q12 N[facility] PRN Reason: Protocol Last Admin: 06/11/17 09:52 Dose: 5,000 units Sodium Chloride (Sodium Chloride 0.9%) 1,000 mls @ 50 mls/hr IV .Q20H [facility] Last Admin: 06/11/17 03:30 Dose: 50 mls/hr Linezolid (Zyvox 600mg/300ml D5w) 600 mg in 300 mls @ 200 mls/hr IVPB Q12 [facility] PRN Reason: Protocol Stop: 07/22/17 22:01 Last Admin: 06/11/17 11:12 Dose: 200 mls/hr Morphine Sulfate (Morphine) 2 mg IVP Q6H PRN PRN Reason: Pain, severe (8-10) Last Admin: 06/11/17 16:08 Dose: 2 mg Multi-Ingredient Cream (Hydrocerin Cream) 0 ea TOP DAILY PRN PRN Reason: DRY SKIN Last Admin: 06/09/17 12:30 Dose: 1 applic Ondansetron HCl (Zofran Inj) 4 mg IVP Q4H PRN PRN Reason: Nausea/Vomiting Oxycodone/Acetaminophen (Percocet 10/325 Mg Tab) 1 tab PO Q6H PRN PRN Reason: Pain, moderate (4-7) Last Admin: 06/11/17 13:45 Dose: 1 tab Pantoprazole Sodium (Protonix Ec Tab) 40 mg PO ACB [facility] Last Admin: 06/11/17 07:39 Dose: 40 mg Polyethylene Glycol (Miralax) 17 gm PO DAILY [facility] Last Admin: 06/11/17 09:52 Dose: 17 gm Potassium Chloride (K-Dur 20 Meq Er Tab) 20 meq PO BRK [facility] Last Admin: 06/11/17 09:53 Dose: Not Given Zinc Sulfate (Zinc Sulfate 220 Mg Cap) 220 mg PO DAILY [facility] Last Admin: 06/11/17 11:15 Dose: 220 mg - Labs Labs: 06/11/17 07:35 06/11/17 07:35 PT 16.2 SECONDS (9.4-12.5) H 05/30/17 07:00 INR 1.40 (0.93-1.08) H 05/30/17 07:00 APTT 28.8 Seconds (25.1-36.5) 05/30/17 07:00 - Constitutional Appears: Non-toxic, No Acute Distress - Head Exam Head Exam: ATRAUMATIC, NORMAL INSPECTION, NORMOCEPHALIC - Eye Exam Eye Exam: EOMI, Normal appearance. absent: Scleral icterus - ENT Exam ENT Exam: Mucous Membranes Moist - Respiratory Exam Respiratory Exam: NORMAL BREATHING PATTERN. absent: Accessory Muscle Use, Respiratory Distress - Cardiovascular Exam Cardiovascular Exam: RRR. absent: JVD - GI/Abdominal Exam GI & Abdominal Exam: Soft. absent: Distended, Firm, Guarding, Rigid, Tenderness - Extremities Exam Extremities Exam: absent: Calf Tenderness Additional comments: right groin dressing in place. Armstrong x2 in place. - Neurological Exam Neurological Exam: Alert, Awake, Oriented x3 - Skin Skin Exam: Dry, Intact, Normal Color, Warm Assessment and Plan - Assessment and Plan (Free Text) Assessment: 41yo F with PMHx of IVDA, Polysubstance Abuse, Hep C here s/p I&D of large loculated abscesses right groin, right posterior hepatic; Possible Early Osteomyelitis at L3. 1. Disseminated MRSA w/ loculated abscesses - IR drain in place - Surgery I&D of Right groin with Jignesh x4 placed. Now with 2 jignesh drains removed - ID following - MRI of L Spine with possible early Osteo at L3 - Patient will need at least 6 weeks of IV Abx: - Zyvox 600mg IV q12h x 6 weeks. (Started on 06/10/17) - Weekly labs: CBC, CMP, ESR, CRP. (watch for thrombocytopenia in particular) - Follow up with ID, Dr. Yancey, Call for appointment: [phone] - Pain management - Tylenol prn fever - SW assisting with placement to [facility] 2. Anemia - H&H stable - Continue IV iron per nephro - Monitor with daily CBC's 3. ASAD - FENa 3.5% - Likely ATN - Continue NS @ 50cc/hr - Nephro following- appreciate recs 4. Back pain and leg weakness - Pain likely 2/2 abscesses and osteomyelitis - Weakness likely 2/2 deconditioning - PT eval/treat - Encouraged OOB to chair and ambulation 5. PPx - Protonix - Heparin SC - SCD's Dispo: Pending placement to [facility] Further recs as per Dr. Yobani Castle PGY1 <Cliff Hilton - Last Filed: 06/12/17 16:22> Objective - Vital Signs/Intake and Output Vital Signs (last 24 hours): Temp Pulse Resp BP Pulse Ox 98 F 80 18 124/81 99 06/11/17 15:56 06/11/17 15:56 06/11/17 15:56 06/11/17 15:56 06/11/17 15:56 Intake and Output: 06/12/17 06/12/17 06:59 18:59 Intake Total 2100 Output Total 25 Balance 2074 - Medications Medications: Current Medications Acetaminophen (Tylenol 325mg Tab) 650 mg PO Q4H PRN PRN Reason: Fever >100.5 F Last Admin: 06/02/17 22:55 Dose: 650 mg Ascorbic Acid (Vitamin C 500 Mg Tab) 500 mg PO DAILY [facility] Last Admin: 06/12/17 10:06 Dose: 500 mg Ferrous Sulfate (Feosol) 324 mg PO TID [facility] Last Admin: 06/12/17 13:23 Dose: 324 mg Heparin Sodium (Porcine) (Heparin) 5,000 units SC Q12 [facility] PRN Reason: Protocol Last Admin: 06/12/17 12:33 Dose: Not Given Sodium Chloride (Sodium Chloride 0.9%) 1,000 mls @ 50 mls/hr IV .Q20H [facility] Last Admin: 06/12/17 05:16 Dose: Not Given Linezolid (Zyvox 600mg/300ml D5w) 600 mg in 300 mls @ 200 mls/hr IVPB Q12 [facility] PRN Reason: Protocol Stop: 07/22/17 22:01 Last Admin: 06/12/17 10:05 Dose: 200 mls/hr Morphine Sulfate (Morphine) 2 mg IVP Q6H PRN PRN Reason: Pain, severe (8-10) Last Admin: 06/12/17 16:04 Dose: 2 mg Multi-Ingredient Cream (Hydrocerin Cream) 0 ea TOP DAILY PRN PRN Reason: DRY SKIN Last Admin: 06/09/17 12:30 Dose: 1 applic Ondansetron HCl (Zofran Inj) 4 mg IVP Q4H PRN PRN Reason: Nausea/Vomiting Oxycodone/Acetaminophen (Percocet 10/325 Mg Tab) 1 tab PO Q6H PRN PRN Reason: Pain, moderate (4-7) Last Admin: 06/12/17 13:23 Dose: 1 tab Pantoprazole Sodium (Protonix Ec Tab) 40 mg PO ACB [facility] Last Admin: 06/12/17 10:05 Dose: 40 mg Polyethylene Glycol (Miralax) 17 gm PO DAILY [facility] Last Admin: 06/12/17 10:06 Dose: Not Given Potassium Chloride (K-Dur 20 Meq Er Tab) 20 meq PO BRK [facility] Last Admin: 06/12/17 10:06 Dose: 20 meq Zinc Sulfate (Zinc Sulfate 220 Mg Cap) 220 mg PO DAILY [facility] Last Admin: 06/12/17 10:05 Dose: 220 mg - Labs Labs: 06/12/17 06:30 06/12/17 06:30 PT 16.2 SECONDS (9.4-12.5) H 05/30/17 07:00 INR 1.40 (0.93-1.08) H 05/30/17 07:00 APTT 28.8 Seconds (25.1-36.5) 05/30/17 07:00 Attending/Attestation - Attestation I have personally seen and examined this patient.: Yes I have fully participated in the care of the patient.: Yes I have reviewed all pertinent clinical information, including history, physical exam and plan: Yes Notes (Text): 06/12/17 16:20 Attending note; Patient seen and examined with the resident. Patient is a 41 year old female with history of Hep C (known and untreated), breast augmentation surgery and polysubstance abuse who was admitted for evaluation of right buttock pain which was radiating to right leg with associated right inguinal mass which she noticed [address] chest abdomen and pelvis showed multiple necrotic masses in right thigh, pelvic and subhepatic area. She underwent CT-guided aspiration of right subhepatic abscess and now has drain in place. She also had I&D of right thigh abscess and 600 cc of pus was drained. Wound culture grew MRSA. Repeat CT revealed small fluid collections in right psoas and right piriformis muscle. Patient underwent IR drainage and 10 cc of purulent fluid was removed from gluteal abscess. Currently on IV Zyvox. Case discussed with ID in detail. Acute renal failure ; resolved. multifactorial. Possible etiologies include sepsis, ATN, medication induced. creatinine improved to 1.2. Case discussed with telehealth case manager in detail for discharge planning . anemia; getting IV iron transfusion. Monitor closely. patient is hemodynamically stable. No need for blood transfusion now. Physical therapy evaluation appreciated. Upon discharge patient will follow up with PMD of choice.
[2017-06-12] MEDS: Morphine 2 mg/ml ISec IVP PRN ×3 (04:24→16:04)
[2017-06-12] MEDS: Sodium Chloride 0.9% 1,000 ML IV SCH (05:16)
[2017-06-12] MEDS: Oxycodone/Acetaminophen 10/325 mg Tab PO PRN ×2 (06:33→13:23)
[2017-06-12 07:16] LABS: ALB/GLOB RATIO 0.6 (1.1-1.8); ALBUMIN 2.5 g/dL (3.0-4.8); CALCIUM 9.4 mg/dL (8.4-10.5)
[2017-06-12 07:21] LABS: BASO # 0.01 K/mm3 (0.0-2.0); BASO % 0.1 % (0.0-3.0); EOS # 0.1 (0.0-0.7); EOS % 0.4 % (1.5-5.0); GRAN # 9.72 (1.4-6.5); GRAN % 81.3 % (50.0-68.0); LYMPH # 1.7 (1.2-3.4); LYMPH % 13.9 % (22.0-35.0); MEAN CELL VOLUME 85.4 fl (80.0-105.0); MEAN CORPUSCULAR HEMOGLOBIN 26.3 pg (25.0-35.0); MEAN CORPUSCULAR HGB CONC 30.8 g/dl (31.0-37.0); MEAN PLATELET VOLUME 9.1 fl (7.0-11.0); MONO # 0.5 (0.1-0.6); MONO % 4.3 % (1.0-6.0); RBC 2.81 10^6/uL (3.5-6.1); RED CELL DISTRIBUTION WIDTH 18.2 % (11.5-14.5)
[2017-06-12 08:22] LABS: HEMOGLOBIN 7.4 g/dL (12.0-16.0)
[2017-06-12] MEDS: Pantoprazole 40 mg EC Tab PO SCH (10:05)
[2017-06-12] MEDS: Linezolid 600 mg in D5W 300 ml 600 MG/300 ML BAG IVPB SCH (10:05)
[2017-06-12] MEDS: POLYETHYLENE GLYCOL 3350 17 GM/Dose PACKET PO SCH (10:06)
[2017-06-12] MEDS: Potassium Chloride 20 mEq ER Tab PO SCH (10:06)
--- NOTE | 2017-06-12 12:59 | PN ---
DATE: SUBJECTIVE: Sharla Sawyer is seen and the CAT scan is reviewed. There are 2 small foci, one on the psoas and one on the piriformis, but the wounds on the groin almost completely drained as was the one by Dr. Alvarez's drain. I discussed with him and probably remove that. I know she is going to an LT[facility] for antibiotics. I can remove the drain there. Tj Calvillo MD
--- NOTE | 2017-06-12 17:58 | CP.PCM.PN ---
Subjective - Date & Time of Evaluation Date of Evaluation: 06/12/17 Time of Evaluation: 12:05 - Subjective Subjective: Comfortable, no fevers. Objective - Vital Signs/Intake and Output Vital Signs (last 24 hours): Temp Pulse Resp BP Pulse Ox 98 F 80 18 124/81 99 06/11/17 15:56 06/11/17 15:56 06/11/17 15:56 06/11/17 15:56 06/11/17 15:56 Intake and Output: 06/12/17 06/12/17 06:59 18:59 Intake Total 2100 Output Total 25 Balance 2074 - Medications Medications: Current Medications Acetaminophen (Tylenol 325mg Tab) 650 mg PO Q4H PRN PRN Reason: Fever >100.5 F Last Admin: 06/02/17 22:55 Dose: 650 mg Ascorbic Acid (Vitamin C 500 Mg Tab) 500 mg PO DAILY [facility] Last Admin: 06/11/17 11:15 Dose: 500 mg Ferrous Sulfate (Feosol) 324 mg PO TID [facility] Last Admin: 06/11/17 22:06 Dose: 324 mg Heparin Sodium (Porcine) (Heparin) 5,000 units SC Q12 [facility] PRN Reason: Protocol Last Admin: 06/11/17 22:04 Dose: 5,000 units Sodium Chloride (Sodium Chloride 0.9%) 1,000 mls @ 50 mls/hr IV .Q20H [facility] Last Admin: 06/12/17 05:16 Dose: Not Given Linezolid (Zyvox 600mg/300ml D5w) 600 mg in 300 mls @ 200 mls/hr IVPB Q12 [facility] PRN Reason: Protocol Stop: 07/22/17 22:01 Last Admin: 06/11/17 22:04 Dose: 200 mls/hr Morphine Sulfate (Morphine) 2 mg IVP Q6H PRN PRN Reason: Pain, severe (8-10) Last Admin: 06/12/17 04:24 Dose: 2 mg Multi-Ingredient Cream (Hydrocerin Cream) 0 ea TOP DAILY PRN PRN Reason: DRY SKIN Last Admin: 06/09/17 12:30 Dose: 1 applic Ondansetron HCl (Zofran Inj) 4 mg IVP Q4H PRN PRN Reason: Nausea/Vomiting Oxycodone/Acetaminophen (Percocet 10/325 Mg Tab) 1 tab PO Q6H PRN PRN Reason: Pain, moderate (4-7) Last Admin: 06/12/17 06:33 Dose: 1 tab Pantoprazole Sodium (Protonix Ec Tab) 40 mg PO ACB [facility] Last Admin: 06/11/17 07:39 Dose: 40 mg Polyethylene Glycol (Miralax) 17 gm PO DAILY NORY Last Admin: 06/11/17 09:52 Dose: 17 gm Potassium Chloride (K-Dur 20 Meq Er Tab) 20 meq PO BRK NORY Last Admin: 06/11/17 09:53 Dose: Not Given Zinc Sulfate (Zinc Sulfate 220 Mg Cap) 220 mg PO DAILY NORY Last Admin: 06/11/17 11:15 Dose: 220 mg - Labs Labs: 06/12/17 06:30 06/12/17 06:30 PT 16.2 SECONDS (9.4-12.5) H 05/30/17 07:00 INR 1.40 (0.93-1.08) H 05/30/17 07:00 APTT 28.8 Seconds (25.1-36.5) 05/30/17 07:00 - Constitutional Appears: Non-toxic - Head Exam Head Exam: NORMAL INSPECTION - ENT Exam ENT Exam: Mucous Membranes Moist - Neck Exam Neck Exam: absent: Meningismus - Respiratory Exam Respiratory Exam: Decreased Breath Sounds - Cardiovascular Exam Cardiovascular Exam: +S1, +S2 - GI/Abdominal Exam GI & Abdominal Exam: Soft. absent: Tenderness Assessment and Plan - Assessment and Plan (Free Text) Plan: Assessment right inguinal mass with necrotic masses also found in the iliacus and ilipsoas muscles, S/P I and D and evacuation of pus growing MRSA - also now with L3 vertebral osteomyelitis Hepatitis C polysubstance abuse S/P breast augmentation surgery Plan continue Daptomycin - will need prolonged antibiotics (at the very least 6 weeks but it could even be more) with weekly ESR, CRP, CBC, CMP, CPK levels - lumbar MRI showing probable early osteomyelitis of the L3 vertebra - may be able to use Zyvox with close attention to platelet count repeat CT A/P still shows right psoas muscle collections - ideally should be drained Hepatitis C should be addressed as an outpatient discussed with Dr. Hilton
--- NOTE | 2017-06-12 21:30 | CP.PCM.DIS ---
<Yaima Francisco - Last Filed: 06/12/17 21:30> Provider - Provider Date of Admission: 05/29/17 15:53 Attending physician: Cliff Hilton MD Consults: ID: [email or web address] Surgery: Rajinder Nephro: Yohannes Time Spent in preparation of Discharge (in minutes): 65 Diagnosis - Discharge Diagnosis (1) MRSA (methicillin resistant staph aureus) culture positive Status: Acute (2) Osteomyelitis Status: Acute (3) Abdominal abscess Status: Acute Hospital Course - Lab Results Lab Results: Micro Results 05/30/17 17:15 Abscess - Other-Put In Comments Anaerobic Culture - Final NO ANAEROBES ISOLATED. 05/30/17 17:15 Abscess - Other-Put In Comments Fungal Culture - Preliminary NO FUNGUS GROWTH IN 1 WEEK. 05/30/17 17:15 Other: Please Indicate Mycobacterial Culture - Preliminary 06/03/17 17:56 Body Fluid - Other-Put In Comments Body Fluid Culture - Final Methicillin Resistant S Aureus 06/03/17 17:58 Abscess - Other-Put In Comments Anaerobic Culture - Final NO ANAEROBES ISOLATED. 06/03/17 17:58 Abscess - Other-Put In Comments Fungal Culture - Preliminary 05/31/17 11:01 Other: Please Indicate Gram Stain - Final 05/31/17 11:01 Other: Please Indicate Anaerobic Culture - Final NO ANAEROBES ISOLATED. 05/31/17 11:01 Other: Please Indicate Wound Culture - Final Methicillin Resistant S Aureus 05/30/17 17:14 Body Fluid - Other-Put In Comments Body Fluid Culture - Final Methicillin Resistant S Aureus 05/30/17 22:00 Naris MRSA Culture (Admit) - Final MRSA DETECTED 05/30/17 09:34 Urine Urine Culture - Final No Growth (<1,000 CFU/ML) Most Recent Lab Values WBC 12.0 10^3/ul (4.5-11.0) H D 06/12/17 06:30 RBC 2.81 10^6/uL (3.5-6.1) L 06/12/17 06:30 Hgb 7.4 g/dL (12.0-16.0) L 06/12/17 06:30 Hct 24.0 % (36.0-48.0) L 06/12/17 06:30 MCV 85.4 fl (80.0-105.0) 06/12/17 06:30 MCH 26.3 pg (25.0-35.0) 06/12/17 06:30 MCHC 30.8 g/dl (31.0-37.0) L 06/12/17 06:30 RDW 18.2 % (11.5-14.5) H 06/12/17 06:30 Plt Count 487 10^3/uL (120.0-450.0) H 06/12/17 06:30 MPV 9.1 fl (7.0-11.0) 06/12/17 06:30 Gran % 81.3 % (50.0-68.0) H 06/12/17 06:30 Lymph % (Auto) 13.9 % (22.0-35.0) L 06/12/17 06:30 [place] % (Auto) 4.3 % (1.0-6.0) 06/12/17 06:30 Eos % (Auto) 0.4 % (1.5-5.0) L 06/12/17 06:30 Baso % (Auto) 0.1 % (0.0-3.0) 06/12/17 06:30 Gran # 9.72 (1.4-6.5) H 06/12/17 06:30 Lymph # (Auto) 1.7 (1.2-3.4) 06/12/17 06:30 [place] # (Auto) 0.5 (0.1-0.6) 06/12/17 06:30 Eos # (Auto) 0.1 (0.0-0.7) 06/12/17 06:30 Baso # (Auto) 0.01 K/mm3 (0.0-2.0) 06/12/17 06:30 Neutrophils % (Manual) 69 % (50.0-70.0) 05/29/17 13:53 Band Neutrophils % 13 % (0-2) H* 05/29/17 13:53 Lymphocytes % (Manual) 12 % (22.0-35.0) L 05/29/17 13:53 Monocytes % (Manual) 5 % (1.0-6.0) 05/29/17 13:53 Myelocytes % 1 % 05/29/17 13:53 Platelet Evaluation High (NORMAL) 05/29/17 13:53 Retic Count 2.88 % (0.5-1.5) H 05/29/17 19:00 ESR 146 mm/hr (0.0-20.0) H 06/09/17 06:30 Haptoglobin 352 mg/dL (43-212) H 05/31/17 08:00 PT 16.2 SECONDS (9.4-12.5) H 05/30/17 07:00 INR 1.40 (0.93-1.08) H 05/30/17 07:00 APTT 28.8 Seconds (25.1-36.5) 05/30/17 07:00 pO2 30 mm/Hg (30-55) 05/29/17 19:19 VBG pH 7.43 (7.32-7.43) 05/29/17 19:19 VBG pCO2 50.0 (40-60) 05/29/17 19:19 VBG HCO3 33.2 mmol/l (21-28) H 05/29/17 19:19 VBG Total CO2 34.7 mmol.L (22-28) H 05/29/17 19:19 VBG O2 Sat (Calc) 62.1 % (40-65) 05/29/17 19:19 VBG Base Excess 7.5 mmol/L (0.0-2.0) H 05/29/17 19:19 VBG Potassium 3.5 mmol/L (3.6-5.2) L 05/29/17 19:19 Sodium 135.0 mmol/L (132-148) 05/29/17 19:19 Chloride 103.0 mmol/L (98-107) 05/29/17 19:19 Glucose 92 mg/dl (65-105) 05/29/17 19:19 Lactate 1.0 mmol/L (0.7-2.1) 05/29/17 19:19 FiO2 21.0 % 05/29/17 19:19 Sodium 137 mmol/L (132-148) 06/12/17 06:30 Potassium 3.5 mmol/L (3.6-5.0) L 06/12/17 06:30 Chloride 103 mmol/L (98-107) 06/12/17 06:30 Carbon Dioxide 29 mmol/L (21-33) 06/12/17 06:30 Anion Gap 9 (10-20) L 06/12/17 06:30 BUN 8 mg/dL (7-21) 06/12/17 06:30 Creatinine 1.2 mg/dl (0.7-1.2) 06/12/17 06:30 Est GFR ( Amer) 59 06/12/17 06:30 Est GFR (Non-Af Amer) 49 06/12/17 06:30 Random Glucose 92 mg/dL (70-110) 06/12/17 06:30 Hemoglobin A1c 5.9 % (4.2-6.5) 05/30/17 07:00 Serum Osmolality 287 mosm/kg (272-300) 06/03/17 06:30 Calcium 9.4 mg/dL (8.4-10.5) 06/12/17 06:30 Phosphorus 4.5 mg/dL (2.5-4.5) 06/03/17 06:30 Iron 14 ug/dL (45-180) L 05/31/17 08:00 TIBC 119 ug/dL (265-497) L 05/31/17 08:00 % Saturation 12 % (20-55) L 05/31/17 08:00 Magnesium 1.9 mg/dL (1.7-2.2) 06/10/17 06:20 Ferritin 509.0 ng/mL 05/31/17 08:00 Total Bilirubin 0.2 mg/dL (0.2-1.3) 06/12/17 06:30 AST 23 U/L (14-36) 06/12/17 06:30 ALT 16 U/L (7-56) 06/12/17 06:30 Alkaline Phosphatase 67 U/L (38-126) 06/12/17 06:30 Lactate Dehydrogenase 227 U/L (333-699) L 05/31/17 08:00 Total Creatine Kinase < 20 U/L (35-230) L 06/06/17 05:45 C-React Prot High Sens > 15.00 mg/L (1.00-3.00) H 06/09/17 06:30 Total Protein 6.6 g/dL (5.8-8.3) 06/12/17 06:30 Albumin 2.5 g/dL (3.0-4.8) L 06/12/17 06:30 Globulin 4.1 gm/dL 06/12/17 06:30 Albumin/Globulin Ratio 0.6 (1.1-1.8) L 06/12/17 06:30 Vitamin B12 555 pg/mL (239-931) 05/31/17 08:00 Folate 4.8 ng/mL 05/31/17 08:00 Procalcitonin 0.22 NG/ML (0.19-0.49) 05/29/17 14:30 TSH 3rd Generation 1.32 mIU/mL (0.46-4.68) 05/30/17 07:00 Venous Blood Potassium 3.5 mmol/L (3.6-5.2) L 05/29/17 19:19 Urine Color Yellow (YELLOW) 06/04/17 23:15 Urine Appearance Clear (CLEAR) 06/04/17 23:15 Urine pH 6.0 (4.7-8.0) 06/04/17 23:15 Ur Specific [place] <= 1.005 (1.005-1.035) 06/04/17 23:15 Urine Protein Negative mg/dL (<30 mg/dL) 06/04/17 23:15 Urine Glucose (UA) Negative mg/dL (NEGATIVE) 06/04/17 23:15 Urine Ketones Negative mg/dL (NEGATIVE) 06/04/17 23:15 Urine Blood Trace-intact (NEGATIVE) H 06/04/17 23:15 Urine Nitrate Negative (NEGATIVE) 06/04/17 23:15 Urine Bilirubin Negative (NEGATIVE) 06/04/17 23:15 Urine Urobilinogen 0.2 E.U./dL (<1 E.U./dL) 06/04/17 23:15 Ur Leukocyte Esterase Trace Cristal/uL (NEGATIVE) H 06/04/17 23:15 Urine RBC 1 - 3 /hpf (0-2) 06/04/17 23:15 Urine WBC 1 - 3 /hpf (0-6) 06/04/17 23:15 Ur Epithelial Cells 3 - 4 /hpf (0-5) 06/04/17 23:15 Urine Bacteria Rare (NEG) 06/04/17 23:15 Urine Other Uyeast 06/04/17 23:15 Ur Random Creatinine 27 mg/dL 06/03/17 20:45 Ur Random Sodium 94 meq/L 06/03/17 20:45 Ur Random Potassium 25.0 meq/L 06/03/17 20:45 Random Vancomycin 32.8 ug/mL (20.0-40.0) 06/04/17 13:10 Urine Opiates Screen Positive (NEGATIVE) H 05/30/17 09:34 Urine Methadone Screen Negative (NEGATIVE) 05/30/17 09:34 Ur Barbiturates Screen Negative (NEGATIVE) 05/30/17 09:34 Ur Phencyclidine Scrn Negative (NEGATIVE) 05/30/17 09:34 Ur Amphetamines Screen Negative (NEGATIVE) 05/30/17 09:34 U Benzodiazepines Scrn Negative (NEGATIVE) 05/30/17 09:34 U Oth Cocaine Metabols Negative (NEGATIVE) 05/30/17 09:34 U Cannabinoids Screen Negative (NEGATIVE) 05/30/17 09:34 RPR Nonreactive (NONREACTIVE) 05/31/17 08:00 C.trachomatis RNA (TMA) Not detected (Not Detected) 06/04/17 23:15 Hepatitis A IgM Ab Negative (NEGATIVE) 05/30/17 07:00 Hep Bs Antigen Negative (NEGATIVE) 05/30/17 07:00 Hep B Core IgM Ab Negative (NEGATIVE) 05/30/17 07:00 Hepatitis C Antibody Reactive (NEGATIVE) 05/30/17 07:00 HIV 1&2 Ag/Ab, 4th Gen Nonreactive (Nonreactive) 05/29/17 14:30 N.gonorrhoeae RNA (TMA) Not detected (Not Detected) 06/04/17 23:15 TB Test (QFT) Nil 0.05 IU/mL 05/31/17 08:00 TB Test Mitogen - Nil 0.31 IU/mL 05/31/17 08:00 TB Test TB - Nil 0.00 IU/mL 05/31/17 08:00 TB Test (QFT) Indeterminate (Negative) H 05/31/17 08:00 Blood Type O POSITIVE 06/06/17 08:30 Blood Type Confirm O POSITIVE 05/31/17 16:19 Antibody Screen Negative 06/06/17 08:30 Crossmatch See Detail 06/06/17 08:30 BBK History Checked Patient has bt 06/06/17 08:30 - Hospital Course Hospital Course: 41 year old female with a past medical history significant for Hepatitis C and polysubstance abuse who initially presented to the ER with a constant sharp pain in the right buttock radiating to the right leg that started suddenly 8 weeks prior with no inciting event with associated right inguinal mass. Throughout the course of her admission, cross sectional imaging showed multiple abscesses, disseminated throughout her abdomen, pelvis, and musculature, as well as possible early L3 osteomyelitis. Several of these loculated abscesses were drained by general surgery and interventional radiology, all of which were growing MRSA on culture. Patient was treated with IV antibiotics, including vancomycin, which she had an adverse reaction to, then daptomycin, and lastly linezolid. Prior to discharge, patient was able to be switched to PO linezolid, per infectious disease consultants. She was also treated for anemia, and did require one unit of blood transfused. Her hospitalization was complicated by an acute kidney injury, determinted to be likely secondary to ATN, which ultimately did recover, nearly back to baseline. Due to her multiple intramuscular abscesses and possible lumbar osteomyelitis, patient had severe pain and difficulty ambulating; she was also noted to be tolerant to opioids due to her recreational opiate use. She was treated for the pain with a narcotic pain regimen, and was seen by physical therapy to assist in the treatment of her deconditioning. Today, the patient continues to complain of right sided back soreness. She reports she is walking slightly better, to and from the bathroom, She also denies any chest pain, shortness of breath, cough, abdominal pain, nausea, vomiting, diarrhea, constipation, fever, or chills. Patient will require prolonged course of antibiotics, with weekly labs, especially monitoring platelet count, while on linezolid. She also needs follow up with a primary care doctor, infectious disease (call for appointment: [phone]), and surgery. This was all discussed in detail, and prescriptions were provided for weekly labs, and visiting nurses for continued rehabilitation and wound care. She was given follow up instructions, and prescriptions for all her medications. All questions were answered to her satisfaction, and she was discharged to home. Discharge Exam - Head Exam Head Exam: NORMAL INSPECTION - Eye Exam Eye Exam: EOMI, Normal appearance, PERRL - ENT Exam ENT Exam: Normal Exam - Respiratory Exam Respiratory Exam: Clear to PA & Lateral, NORMAL BREATHING PATTERN - Cardiovascular Exam Cardiovascular Exam: RRR, +S1, +S2 - GI/Abdominal Exam GI & Abdominal Exam: Normal Bowel Sounds, Unremarkable. absent: Tenderness - Extremities Exam Extremities exam: normal inspection - Neurological Exam Neurological exam: Alert, CN II-XII Intact, Oriented x3 - Psychiatric Exam Psychiatric exam: Normal Affect, Normal Mood - Skin Additional comments: Right groin with dressing in place. One gia drain remaining. Right back with drain in place, bag with brown/caban fluid Discharge Plan - Discharge Medications Prescriptions: Ascorbic Acid [Vitamin C 500 mg Tab] 500 mg PO DAILY #30 tab Ferrous Sulfate [Feosol] 324 mg PO TID #90 ect Linezolid [Zyvox] 600 mg PO Q12 #84 tab Oxycodone HCl/Acetaminophen [Percocet 10-325 mg Tablet] 1 each PO Q6 #18 tablet Zinc [Zinc Sulfate 220 mg Cap] 220 mg PO DAILY #30 cap - Follow Up Plan Condition: GUARDED Disposition: HOME/ ROUTINE Instructions: Pneumococcal Vaccine for Adults (DC), Narcotic Abuse (DC), Influenza Vaccine (DC), Abscess (GEN), Fall Prevention (DC) Additional Instructions: 1. Continue to take the antibiotics (Zyvox) one pill twice daily for the next 6 weeks 2. Continue to take all other medications as prescribed 3. Return to [facility] or your designated lab facility for weekly blood work 4. Follow up with Dr. Calvillo in one week for removal of the drains 5. Empty the back drain as needed and change the leg dressing as needed. Follow up with DR. Toro Alvarez in [address] abdomen and pelvis in 4 weeks. 6. Follow up with the [facility] clinic or your primary care doctor within one week 7. For any new or worsening concerns, contact your PCP immediately, or return to the ER Referrals: Tj Calvillo MD [Staff Provider] - Toro Alvarez MD [Staff Provider] - <Cliff Hilton - Last Filed: 06/13/17 12:41> Provider - Provider Date of Admission: 05/29/17 15:53 Attending physician: Cliff Hilton MD Hospital Course - Lab Results Lab Results: Micro Results 05/30/17 17:15 Abscess - Other-Put In Comments Anaerobic Culture - Final NO ANAEROBES ISOLATED. 05/30/17 17:15 Abscess - Other-Put In Comments Fungal Culture - Preliminary NO FUNGUS GROWTH IN 1 WEEK. 05/30/17 17:15 Other: Please Indicate Mycobacterial Culture - Preliminary 06/03/17 17:56 Body Fluid - Other-Put In Comments Body Fluid Culture - Final Methicillin Resistant S Aureus 06/03/17 17:58 Abscess - Other-Put In Comments Anaerobic Culture - Final NO ANAEROBES ISOLATED. 06/03/17 17:58 Abscess - Other-Put In Comments Fungal Culture - Preliminary 05/31/17 11:01 Other: Please Indicate Gram Stain - Final 05/31/17 11:01 Other: Please Indicate Anaerobic Culture - Final NO ANAEROBES ISOLATED. 05/31/17 11:01 Other: Please Indicate Wound Culture - Final Methicillin Resistant S Aureus 05/30/17 17:14 Body Fluid - Other-Put In Comments Body Fluid Culture - Final Methicillin Resistant S Aureus 05/30/17 22:00 Naris MRSA Culture (Admit) - Final MRSA DETECTED 05/30/17 09:34 Urine Urine Culture - Final No Growth (<1,000 CFU/ML) Most Recent Lab Values WBC 12.0 10^3/ul (4.5-11.0) H D 06/12/17 06:30 RBC 2.81 10^6/uL (3.5-6.1) L 06/12/17 06:30 Hgb 7.4 g/dL (12.0-16.0) L 06/12/17 06:30 Hct 24.0 % (36.0-48.0) L 06/12/17 06:30 MCV 85.4 fl (80.0-105.0) 06/12/17 06:30 MCH 26.3 pg (25.0-35.0) 06/12/17 06:30 MCHC 30.8 g/dl (31.0-37.0) L 06/12/17 06:30 RDW 18.2 % (11.5-14.5) H 06/12/17 06:30 Plt Count 487 10^3/uL (120.0-450.0) H 06/12/17 06:30 MPV 9.1 fl (7.0-11.0) 06/12/17 06:30 Gran % 81.3 % (50.0-68.0) H 06/12/17 06:30 Lymph % (Auto) 13.9 % (22.0-35.0) L 06/12/17 06:30 [place] % (Auto) 4.3 % (1.0-6.0) 06/12/17 06:30 Eos % (Auto) 0.4 % (1.5-5.0) L 06/12/17 06:30 Baso % (Auto) 0.1 % (0.0-3.0) 06/12/17 06:30 Gran # 9.72 (1.4-6.5) H 06/12/17 06:30 Lymph # (Auto) 1.7 (1.2-3.4) 06/12/17 06:30 [place] # (Auto) 0.5 (0.1-0.6) 06/12/17 06:30 Eos # (Auto) 0.1 (0.0-0.7) 06/12/17 06:30 Baso # (Auto) 0.01 K/mm3 (0.0-2.0) 06/12/17 06:30 Neutrophils % (Manual) 69 % (50.0-70.0) 05/29/17 13:53 Band Neutrophils % 13 % (0-2) H* 05/29/17 13:53 Lymphocytes % (Manual) 12 % (22.0-35.0) L 05/29/17 13:53 Monocytes % (Manual) 5 % (1.0-6.0) 05/29/17 13:53 Myelocytes % 1 % 05/29/17 13:53 Platelet Evaluation High (NORMAL) 05/29/17 13:53 Retic Count 2.88 % (0.5-1.5) H 05/29/17 19:00 ESR 146 mm/hr (0.0-20.0) H 06/09/17 06:30 Haptoglobin 352 mg/dL (43-212) H 05/31/17 08:00 PT 16.2 SECONDS (9.4-12.5) H 05/30/17 07:00 INR 1.40 (0.93-1.08) H 05/30/17 07:00 APTT 28.8 Seconds (25.1-36.5) 05/30/17 07:00 pO2 30 mm/Hg (30-55) 05/29/17 19:19 VBG pH 7.43 (7.32-7.43) 05/29/17 19:19 VBG pCO2 50.0 (40-60) 05/29/17 19:19 VBG HCO3 33.2 mmol/l (21-28) H 05/29/17 19:19 VBG Total CO2 34.7 mmol.L (22-28) H 05/29/17 19:19 VBG O2 Sat (Calc) 62.1 % (40-65) 05/29/17 19:19 VBG Base Excess 7.5 mmol/L (0.0-2.0) H 05/29/17 19:19 VBG Potassium 3.5 mmol/L (3.6-5.2) L 05/29/17 19: Sodium 135.0 mmol/L (132-148) 05/29/17: Chloride 103.0 mmol/L (98-107) 05/29/17 19: Glucose 92 mg/dl (65-105) 05/29/17 19: Lactate 1.0 mmol/L (0.7-2.1) 05/29/17: FiO2 21.0 % 05/29/17 19: Sodium 137 mmol/L (132-148) 06/12/17 06:30 Potassium 3.5 mmol/L (3.6-5.0) L 06/12/17 06:30 Chloride 103 mmol/L (98-107) 06/12/17 06:30 Carbon Dioxide 29 mmol/L (21-33) 06/12/17 06:30 Anion Gap 9 (10-20) L 06/12/17 06:30 BUN 8 mg/dL (7-21) 06/12/17 06:30 Creatinine 1.2 mg/dl (0.7-1.2) 06/12/17 06:30 Est GFR ( Amer) 59 06/12/17 06:30 Est GFR (Non-Af Amer) 49 06/12/17 06:30 Random Glucose 92 mg/dL (70-110) 06/12/17 06:30 Hemoglobin A1c 5.9 % (4.2-6.5) 05/30/17 07:00 Serum Osmolality 287 mosm/kg (272-300) 06/03/17 06:30 Calcium 9.4 mg/dL (8.4-10.5) 06/12/17 06:30 Phosphorus 4.5 mg/dL (2.5-4.5) 06/03/17 06:30 Iron 14 ug/dL (45-180) L 05/31/17 08:00 TIBC 119 ug/dL (265-497) L 05/31/17 08:00 % Saturation 12 % (20-55) L 05/31/17 08:00 Magnesium 1.9 mg/dL (1.7-2.2) 06/10/17 06:20 Ferritin 509.0 ng/mL 05/31/17 08:00 Total Bilirubin 0.2 mg/dL (0.2-1.3) 06/12/17 06:30 AST 23 U/L (14-36) 06/12/17 06:30 ALT 16 U/L (7-56) 06/12/17 06:30 Alkaline Phosphatase 67 U/L (38-126) 06/12/17 06:30 Lactate Dehydrogenase 227 U/L (333-699) L 05/31/17 08:00 Total Creatine Kinase < 20 U/L (35-230) L 06/06/17 05:45 C-React Prot High Sens > 15.00 mg/L (1.00-3.00) H 06/09/17 06:30 Total Protein 6.6 g/dL (5.8-8.3) 06/12/17 06:30 Albumin 2.5 g/dL (3.0-4.8) L 06/12/17 06:30 Globulin 4.1 gm/dL 06/12/17 06:30 Albumin/Globulin Ratio 0.6 (1.1-1.8) L 06/12/17 06:30 Vitamin B12 555 pg/mL (239-931) 05/31/17 08:00 Folate 4.8 ng/mL 05/31/17 08:00 Procalcitonin 0.22 NG/ML (0.19-0.49) 05/29/17 14:30 TSH 3rd Generation 1.32 mIU/mL (0.46-4.68) 05/30/17 07:00 Venous Blood Potassium 3.5 mmol/L (3.6-5.2) L 05/29/17 19:19 Urine Color Yellow (YELLOW) 06/04/17 23:15 Urine Appearance Clear (CLEAR) 06/04/17 23:15 Urine pH 6.0 (4.7-8.0) 06/04/17 23:15 Ur Specific [place] <= 1.005 (1.005-1.035) 06/04/17 23:15 Urine Protein Negative mg/dL (<30 mg/dL) 06/04/17 23:15 Urine Glucose (UA) Negative mg/dL (NEGATIVE) 06/04/17 23:15 Urine Ketones Negative mg/dL (NEGATIVE) 06/04/17 23:15 Urine Blood Trace-intact (NEGATIVE) H 06/04/17 23:15 Urine Nitrate Negative (NEGATIVE) 06/04/17 23:15 Urine Bilirubin Negative (NEGATIVE) 06/04/17 23:15 Urine Urobilinogen 0.2 E.U./dL (<1 E.U./dL) 06/04/17 23:15 Ur Leukocyte Esterase Trace Cristal/uL (NEGATIVE) H 06/04/17 23:15 Urine RBC 1 - 3 /hpf (0-2) 06/04/17 23:15 Urine WBC 1 - 3 /hpf (0-6) 06/04/17 23:15 Ur Epithelial Cells 3 - 4 /hpf (0-5) 06/04/17 23:15 Urine Bacteria Rare (NEG) 06/04/17 23:15 Urine Other Uyeast 06/04/17 23:15 Ur Random Creatinine 27 mg/dL 06/03/17 20:45 Ur Random Sodium 94 meq/L 06/03/17 20:45 Ur Random Potassium 25.0 meq/L 06/03/17 20:45 Random Vancomycin 32.8 ug/mL (20.0-40.0) 06/04/17 13:10 Urine Opiates Screen Positive (NEGATIVE) H 05/30/17 09:34 Urine Methadone Screen Negative (NEGATIVE) 05/30/17 09:34 Ur Barbiturates Screen Negative (NEGATIVE) 05/30/17 09:34 Ur Phencyclidine Scrn Negative (NEGATIVE) 05/30/17 09:34 Ur Amphetamines Screen Negative (NEGATIVE) 05/30/17 09:34 U Benzodiazepines Scrn Negative (NEGATIVE) 05/30/17 09:34 U Oth Cocaine Metabols Negative (NEGATIVE) 05/30/17 09:34 U Cannabinoids Screen Negative (NEGATIVE) 05/30/17 09:34 RPR Nonreactive (NONREACTIVE) 05/31/17 08:00 C.trachomatis RNA (TMA) Not detected (Not Detected) 06/04/17 23:15 Hepatitis A IgM Ab Negative (NEGATIVE) 05/30/17 07:00 Hep Bs Antigen Negative (NEGATIVE) 05/30/17 07:00 Hep B Core IgM Ab Negative (NEGATIVE) 05/30/17 07:00 Hepatitis C Antibody Reactive (NEGATIVE) 05/30/17 07:00 HIV 1&2 Ag/Ab, 4th Gen Nonreactive (Nonreactive) 05/29/17 14:30 N.gonorrhoeae RNA (TMA) Not detected (Not Detected) 06/04/17 23:15 TB Test (QFT) Nil 0.05 IU/mL 05/31/17 08:00 TB Test Mitogen - Nil 0.31 IU/mL 05/31/17 08:00 TB Test TB - Nil 0.00 IU/mL 05/31/17 08:00 TB Test (QFT) Indeterminate (Negative) H 05/31/17 08:00 Blood Type O POSITIVE 06/06/17 08:30 Blood Type Confirm O POSITIVE 05/31/17 16:19 Antibody Screen Negative 06/06/17 08:30 Crossmatch See Detail 06/06/17 08:30 BBK History Checked Patient has bt 06/06/17 08:30 Attending/Attestation - Attestation I have personally seen and examined this patient.: Yes I have fully participated in the care of the patient.: Yes I have reviewed all pertinent clinical information, including history, physical exam and plan: Yes Notes (Text): 06/13/17 12:34 Attending note; Patient seen and examined with the resident. Patient is a 41 year old female with history of Hep C (known and untreated), breast augmentation surgery and polysubstance abuse who was admitted for evaluation of right buttock pain which was radiating to right leg with associated right inguinal mass which she noticed [address] chest abdomen and pelvis showed multiple necrotic masses in right thigh, pelvic and subhepatic area. She underwent CT-guided aspiration of right subhepatic abscess and now has drain in place. She also had I&D of right thigh abscess and 600 cc of pus was drained. Wound culture grew MRSA. Repeat CT revealed small fluid collections in right psoas and right piriformis muscle. Patient underwent IR drainage and 10 cc of purulent fluid was removed from gluteal abscess. Treated with IV Zyvox. Case discussed with ID in detail. will be discharged home with po Zyvox for 6 weeks. Acute renal failure ; resolved. multifactorial. Possible etiologies include sepsis, ATN, medication induced. creatinine improved to 1.2. anemia; got IV iron/1 unit of blood transfusion. Monitor closely. patient is hemodynamically stable. Physical therapy evaluation appreciated. patient will go home with drain. Wound care services arranged. Dressing change instructions given. contact precautions instructions given. Patient will follow-up with Dr. Calvillo in one week for the drain removal. Patient will need repeat CT scan in 4 weeks to assess the resolution of abscess. Upon discharge patient will follow up with PMD of choice or [facility] clinic. diagnosis; Multiple MRSA abscess Acute renal failure Anemia Status post blood transfusion status post drain placement/incision and drainage
--- NOTE | 2017-06-19 18:44 | OP ---
PROCEDURE DATE: 05/31/2017 PREOPERATIVE DIAGNOSIS: Abscess of the thigh. POSTOPERATIVE DIAGNOSIS: Abscess of the thigh. OPERATION PERFORMED: Intraoperative drainage, evaluation and debridement. DESCRIPTION OF PROCEDURE: In the operating room, patient was placed supine and with adequate anesthesia, the timeout was taken. The wound was exposing the perineum and the right thigh. The timeout was successful per my nelda, the consent, indications. The patient was compared against the wrist band name, number, and the consent form. After the patient was adequately prepped and draped, aspiration of the thigh wound was obtained and the culture was sent for aerobic and anaerobic cultures. An incision was made in the thigh followed by a Krystal clamp and a massive amount of pus. At least 800 to a liter of fluid was removed. It was expressed from the deep areas of the thigh. A posterior pocket was found and a iwmtxsh-lhn-yiebgeq [place] was placed coming out the skin inferiorly. Going up to the groin, multiple abscess cavities were found; I believe I got all the abscess cavities. My guess is that this abscess drained in from the abdomen through the psoas and probably the piriformis, but in any case, it tracked up inferiorly, the drain is left in situ. Multiple drains were placed and they were sutured in a [id number]-ewt-hjjzkdl manner into a igiugig. Patient was taken to recovery room in good condition after the sponge and needle counts were declared correct. Tj Calvillo MD
== END 2017-06-12 19:30 | disposition home or self-care (01) | DRG 581 ==
LOC: ED 12:49 → ERH 15:53 → 5RSO 18:29
PROVIDERS: ADMIT Internal Medicine; ATTEND Internal Medicine
PROC: 0W9H30Z Drainage of Retroperitoneum with Drainage Device, Percutaneous Approach (ICD-10-PCS; 2017-05-30)
PROC: 0Y9500Z Drainage of Right Inguinal Region with Drainage Device, Open Approach (ICD-10-PCS; principal; 2017-05-31 09:30)
PROC: 02HV33Z Insertion of Infusion Device into Superior Vena Cava, Percutaneous Approach (ICD-10-PCS; 2017-06-02)
PROC: B548ZZA Ultrasonography of Superior Vena Cava, Guidance (ICD-10-PCS; 2017-06-02)
PROC: 0K9N3ZZ Drainage of Right Hip Muscle, Percutaneous Approach (ICD-10-PCS; 2017-06-03)
PROC: 30233N1 Transfusion of Nonautologous Red Blood Cells into Peripheral Vein, Percutaneous Approach (ICD-10-PCS; 2017-06-06)
PROC: 3E03328 Introduction of Oxazolidinones into Peripheral Vein, Percutaneous Approach (ICD-10-PCS; 2017-06-10)
DX: A41.9 Sepsis, unspecified organism (principal); K68.19 Other retroperitoneal abscess; N17.0 Acute kidney failure with tubular necrosis; L02.214 Cutaneous abscess of groin; L02.31 Cutaneous abscess of buttock; B19.20 Unspecified viral hepatitis C without hepatic coma; E87.6 Hypokalemia; M46.26 Osteomyelitis of vertebra, lumbar region; B95.62 Methicillin resistant Staphylococcus aureus infection as the cause of diseases classified elsewhere; R65.20 Severe sepsis without septic shock; M54.40 Lumbago with sciatica, unspecified side; D64.9 Anemia, unspecified; F19.10 Other psychoactive substance abuse, uncomplicated; E83.42 Hypomagnesemia; F17.210 Nicotine dependence, cigarettes, uncomplicated; Z41.1 Encounter for cosmetic surgery